=== PATIENT | male | born 1965 | race Hispanic/Latino ===

== ENCOUNTER 2016-12-13 05:12 | Emergency (ER) | payer BC ==
[2016-12-13 06:33] LABS: Blood Urea Nitrogen 24 mg/dL (9-20); Calcium 9.2 mg/dL (8.4-10.2); Carbon Dioxide 26 mmol/L (22-30); Chloride 91.6 mmol/L (98-107); Glucose 125 mg/dL (75-100); Sodium 131 mmol/L (137-145)
[2016-12-13 06:34] LABS: Anion Gap 18 mmol/L
[2016-12-13 06:41] LABS: Hematocrit 38.2 % (35.5-45.6); Hemoglobin 12.6 gm/dl (11.8-15.2); Mean Corpuscular HGB Conc 33 % (32-34); Mean Corpuscular Hemoglobin 29 pg (28-32); Mean Corpuscular Volume 89 fl (84-94); Platelet Count 363 K/mm3 (140-440); Red Blood Count 4.29 M/mm3 (3.65-5.03); Red Cell Distribution Width 14.5 % (13.2-15.2); White Blood Count 12.5 K/mm3 (4.5-11.0)
[2016-12-13 06:53] LABS: INR 0.85 (0.87-1.13)
[2016-12-13 06:54] LABS: Partial Thromboplastin Time 25.2 Sec. (24.2-36.6)
[2016-12-13 10:39] VITALS: BP 155/90
--- NOTE | 2016-12-13 11:40 | Emergency Department Report ---
HPI - General Chief Complaint: Tube Replacement Time Seen by Provider: 12/13/16 11:24 - HPI HPI: Chief complaint: Bleeding around his G-tube HPI: Patient with tongue cancer status post resection and currently on chemotherapy and radiation had a G-tube placed prophylactically which he is not using one week ago and noticed after cleaning it last night later in the evening it began bleeding. He is currently not actively bleeding. He has no abdominal pain or other symptoms. Patient is on Plavix and a baby aspirin. Mode of arrival: EMS Source: Patient Began: 2:00 last night Duration: Intermittent Context: See above Quality: Pain-free Severity: 0 out of 10 Improved with: Pressure Worsened with: Nothing Associated signs and symptoms: See above ED Past Medical Hx - Past Medical History Previous Medical History?: Yes Hx Hypertension: Yes Hx Heart Attack/AMI: Yes (3 cardiac stents) Hx Congestive Heart Failure: Yes Hx of Cancer: Yes (tongue cancer) Additional medical history: colitis, recent tongue cancer surgery, undergoing chemotherapy and radiation,. high cholesterol, Feeding tube placed as a precaution for if he is unable to eat - Surgical History Past Surgical History?: Yes Hx Coronary Stent: Yes Additional Surgical History: cranioplasty, tongur cancer surgery - Social History Smoking Status: Never Smoker - Medications Home Medications: Home Medications Medication Instructions Recorded Confirmed Last Taken Type Diphenhydramine HCl [Sleep-Aid] 25 mg PO HS PRN 02/27/15 02/27/15 Unknown History Mesalamine [Asacol Hd] 800 mg PO TID 02/27/15 02/27/15 Unknown History Aspirin EC [Aspirin Enteric Coated 81 mg PO QDAY #30 tablet. 03/02/15 Unknown Rx TAB] Atorvastatin [Lipitor] 40 mg PO QHS #30 tablet 03/02/15 Unknown Rx Clopidogrel [Plavix] 75 mg PO QDAY #30 tablet 03/02/15 Unknown Rx Lisinopril/Hydrochlorothiazide 1 tab PO QDAY #30 tablet 03/02/15 Unknown Rx [Zestoretic 20-12.5 mg] Metoprolol [Lopressor TAB] 12.5 mg PO BID #30 tablet 03/02/15 Unknown Rx ED Review of Systems ROS: Stated complaint: BLEEDING FROM FEEDING TUBE Other details as noted in HPI ROS Constitutional: No fever ENT: No uri symptoms Cardiovascular: No chest pain Respiratory: No sob or cough GI: No nausea vomiting or diarrhea : No dysuria frequency or urgency, Skin: No rash Neuro: No focal weakness or numbness Psych: No depression Peewee/lymph: No edema Physical Exam - Physical Exam Vital Signs: Vital Signs 12/13/16 12/13/16 12/13/16 05:28 10:38 10:40 Temperature 98.1 F 97.7 F Pulse Rate 68 59 L Respiratory 18 14 14 Rate Blood Pressure 158/96 Blood Pressure 155/90 [Right] O2 Sat by Pulse 97 97 97 Oximetry Physical Exam: GENERAL: The patient is well-developed well-nourished. HEENT: Normocephalic. Atraumatic. Extraocular motions are intact. Patient has moist mucous membranes. CHEST/LUNGS: There is no respiratory distress noted. ABDOMEN: Abdomen is soft, nontender. Patient has normal bowel sounds. There is no abdominal distention. G-tube has fresh clots around the area but when these were removed there is no recurrent bleeding. SKIN: There is no rash. There is no edema. There is no diaphoresis. NEURO: The patient is awake, alert, and oriented. The patient is cooperative. . The patient has dysarthria secondary to tongue surgery. MUSCULOSKELETAL: There is no tenderness or deformity. There is no evidence of acute injury. ED Course Vital Signs 12/13/16 12/13/16 12/13/16 05:28 10:38 10:40 Temperature 98.1 F 97.7 F Pulse Rate 68 59 L Respiratory 18 14 14 Rate Blood Pressure 158/96 Blood Pressure 155/90 [Right] O2 Sat by Pulse 97 97 97 Oximetry ED Medical Decision Making - Lab Data Result diagrams: 12/13/16 06:05 12/13/16 06:05 Critical care attestation.: If time is entered above; I have spent that time in minutes in the direct care of this critically ill patient, excluding procedure time. ED Disposition Clinical Impression: Post-op bleeding Qualifiers: Surgical complication system/body Area: digestive system Procedure type: digestive system Qualified Code(s): K91.840 - Postprocedural hemorrhage of a digestive system organ or structure following a digestive system procedure Disposition: DISCHARGED TO HOME OR SELFCARE Is pt being admited?: No Does the pt Need Aspirin: No Condition: Stable Instructions: Postoperative Bleeding (ED) Referrals: follow-up, your douper tomorrow [Other] - 24 Hours Time of Disposition: 11:43
== END 2016-12-13 11:45 | disposition home or self-care (01) ==
LOC: ED 05:12
DX: K91.840 Postprocedural hemorrhage of a digestive system organ or structure following a digestive system procedure (principal); I10 Essential (primary) hypertension; I25.2 Old myocardial infarction; I50.9 Heart failure, unspecified; E78.00 Pure hypercholesterolemia, unspecified; Z85.810 Personal history of malignant neoplasm of tongue; Z98.890 Other specified postprocedural states; Z79.82 Long term (current) use of aspirin
CPT/HCPCS: 36415; 80048; 85027; 85610; 85730; 99283

== ENCOUNTER 2019-02-13 18:21 | Inpatient (IN) | payer BC ==
[2019-02-13] MEDS ORDERED: NACL 0.9% 1000 ML 1,000 ML IV ONE ×2 (18:33)
--- NOTE | 2019-02-13 18:42 | Emergency Department Report ---
HPI - General Time Seen by Provider: 02/13/19 18:32 - HPI HPI: Room 22 The patient is a 53-year-old male presenting with chief complaint of altered mental status. Per EMS the patient is in an extended stay hotel and management had to force their way in. The patient was found in the bathroom on the floor surrounded by feces and vomitus. EMS states it appears as though the patient had been there for a long time. The patient is a poor historian and denies complaints. Patient admits to history of esophageal cancer treated with surgery. Location: [See above] Duration: [See above] Quality: [See above] Severity: [See above] Modifying factors: [see above] Context: [see above] Mode of transportation: [not driving] ED Past Medical Hx - Past Medical History Hx Hypertension: Yes Hx Heart Attack/AMI: Yes (3 cardiac stents) Hx Congestive Heart Failure: Yes Additional medical history: colitis, recent tongue cancer surgery, undergoing chemotherapy and radiation,. high cholesterol, Feeding tube placed as a precaution for if he is unable to eat - Surgical History Hx Coronary Stent: Yes Additional Surgical History: cranioplasty, tongur cancer surgery - Family History Family history: no significant - Social History Smoking Status: Never Smoker Substance Use Type: None - Medications Home Medications: Home Medications Medication Instructions Recorded Confirmed Last Taken Type Diphenhydramine HCl [Sleep-Aid] 25 mg PO HS PRN 02/27/15 02/27/15 Unknown History Mesalamine [Asacol Hd] 800 mg PO TID 02/27/15 02/27/15 Unknown History Aspirin EC [Aspirin Enteric Coated 81 mg PO QDAY #30 tablet. 03/02/15 Unknown Rx TAB] Atorvastatin [Lipitor] 40 mg PO QHS #30 tablet 03/02/15 Unknown Rx Clopidogrel [Plavix] 75 mg PO QDAY #30 tablet 03/02/15 Unknown Rx Lisinopril/Hydrochlorothiazide 1 tab PO QDAY #30 tablet 03/02/15 Unknown Rx [Zestoretic 20-12.5 mg] Metoprolol [Lopressor TAB] 12.5 mg PO BID #30 tablet 03/02/15 Unknown Rx ED Review of Systems ROS: Stated complaint: HYPERGLYCEMIA Other details as noted in HPI Comment: Unobtainable due to pts medical conditions Physical Exam - Physical Exam Physical Exam: GENERAL: The patient is a thin disheveled male lying on stretcher not appear to be in acute distress HEENT: Normocephalic. Atraumatic. Extraocular motions are intact. Patient has moist mucous membranes. NECK: Supple. Trachea midline CHEST/LUNGS: Clear to auscultation. There is no respiratory distress noted. HEART/CARDIOVASCULAR: Regular. There is no tachycardia. There is no gallop rub or murmur. ABDOMEN: Abdomen is soft, nontender. Patient has normal bowel sounds. There is no abdominal distention. SKIN: There is no rash. There is no edema. There is no diaphoresis. NEURO: The patient is awake but slow to respond. The patient is cooperative. The patient has no focal neurologic deficits. The patient has normal speech MUSCULOSKELETAL: There is no evidence of acute injury. - Central Line Placement Right IJ Consent Obtained: verbal consent Patient Placed on Monitor/Pulse Ox: Yes MD Prep: mask, gown, gloves Central Line Prep: Chlorhexidine scrub Local Anesthesia Used: Lidocaine 1% Amount of Anesthesia Used (mls): 3 Ultrasound Used for Placement: Yes Central Line Lumen Inserted: triple Bloods Obtained for Lab: No Central Line Position: good blood return Patient Tolerated Procedure: other (patient would not stay still) Complications: arterial puncture/cannula (arterial puncture on first attempt. No cannula. Needle removed and pressure held. Hemostatic) Additional Comments: Her second and third attempt at right IJ CVL there was good dark red blood penis return however the patient continued to move making it impossible to pass the guidewire. After second attempt right IJ site was abandoned and right femoral line placed. Right Femoral Consent Obtained: verbal consent Time Out Performed: No Patient Placed on Monitor/Pulse Ox: Yes MD Prep: mask, gown, gloves Central Line Prep: Chlorhexidine scrub Local Anesthesia Used: Lidocaine 1% Amount of Anesthesia Used (mls): 3 Ultrasound Used for Placement: No Central Line Lumen Inserted: triple Bloods Obtained for Lab: No Central Line Position: good blood return, all ports aspirated, flus Dressing Applied: Tegaderm Patient Tolerated Procedure: no complications Complications: none ED Medical Decision Making - Lab Data Result diagrams: 02/13/19 19:13 02/13/19 20:15 Laboratory Tests 02/13/19 02/13/19 02/13/19 18:35 19:13 19:13 WBC 24.4 H RBC 3.47 L Hgb 8.1 L Hct 28.4 L MCV 82 L MCH 23 L MCHC 29 L RDW 21.1 H Plt Count 419 Add Manual Diff Complete Total Counted 100 Seg Neutrophils % Insurance Claims Clerk Seg Neuts % (Manual) 85.0 H Band Neutrophils % 7.0 Lymphocytes % (Manual) 1.0 L Reactive Lymphs % (Man) 0 Monocytes % (Manual) 7.0 Eosinophils % (Manual) 0 Basophils % (Manual) 0 Metamyelocytes % 0 Myelocytes % 0 Promyelocytes % 0 Blast Cells % 0 Nucleated RBC % Not Reportable Seg Neutrophils # Man 20.7 H Band Neutrophils # 1.7 Lymphocytes # (Manual) 0.2 L Abs React Lymphs (Man) 0.0 Monocytes # (Manual) 1.7 H Eosinophils # (Manual) 0.0 Basophils # (Manual) 0.0 Metamyelocytes # 0.0 Myelocytes # 0.0 Promyelocytes # 0.0 Blast Cells # 0.0 WBC Morphology Not Reportable Hypersegmented Neuts Not Reportable Hyposegmented Neuts Not Reportable Hypogranular Neuts Not Reportable Smudge Cells Not Reportable Toxic Granulation Not Reportable Toxic Vacuolation Not Reportable Dohle Bodies Not Reportable Pelger-Huet Anomaly Not Reportable Kendrick Rods Not Reportable Platelet Estimate Consistent w auto Clumped Platelets Not Reportable Plt Clumps, EDTA Not Reportable Large Platelets Not Reportable Giant Platelets Not Reportable Platelet Satelliting Not Reportable Plt Morphology Comment Not Reportable RBC Morphology Not Reportable Dimorphic RBCs Not Reportable Polychromasia Not Reportable Hypochromasia 1+ Poikilocytosis 3+ Anisocytosis 2+ Microcytosis Not Reportable Macrocytosis Not Reportable Spherocytes Not Reportable Pappenheimer Bodies Not Reportable Sickle Cells Not Reportable Target Cells Not Reportable Tear Drop Cells Not Reportable Ovalocytes 2+ Helmet Cells Not Reportable [place] Bodies Not Reportable Derwood Rings Not Reportable [place] Cells 3+ Bite Cells Not Reportable Crenated Cell Not Reportable Elliptocytes Not Reportable Acanthocytes (Spur) Not Reportable Rouleaux Not Reportable Hemoglobin C Crystals Not Reportable Schistocytes Few Malaria parasites Not Reportable Ulices Bodies Not Reportable Hem Pathologist Commnt No PT 18.4 H INR 1.43 H APTT 44.5 H VBG pH Sodium Potassium Chloride Carbon Dioxide Anion Gap BUN Creatinine Estimated GFR BUN/Creatinine Ratio Glucose POC Glucose > 500 H Calcium Phosphorus Magnesium Total Bilirubin AST ALT Alkaline Phosphatase Total Creatine Kinase CK-MB (CK-2) CK-MB (CK-2) Rel Index Troponin T Total Protein Albumin Albumin/Globulin Ratio Triglycerides Cholesterol LDL Cholesterol Direct HDL Cholesterol Cholesterol/HDL Ratio Lipase 02/13/19 02/13/19 02/13/19 19:13 19:13 20:15 WBC RBC Hgb Hct MCV MCH MCHC RDW Plt Count Add Manual Diff Total Counted Seg Neutrophils % Seg Neuts % (Manual) Band Neutrophils % Lymphocytes % (Manual) Reactive Lymphs % (Man) Monocytes % (Manual) Eosinophils % (Manual) Basophils % (Manual) Metamyelocytes % Myelocytes % Promyelocytes % Blast Cells % Nucleated RBC % Seg Neutrophils # Man Band Neutrophils # Lymphocytes # (Manual) Abs React Lymphs (Man) Monocytes # (Manual) Eosinophils # (Manual) Basophils # (Manual) Metamyelocytes # Myelocytes # Promyelocytes # Blast Cells # WBC Morphology Hypersegmented Neuts Hyposegmented Neuts Hypogranular Neuts Smudge Cells Toxic Granulation Toxic Vacuolation Dohle Bodies Pelger-Huet Anomaly Kendrick Rods Platelet Estimate Clumped Platelets Plt Clumps, EDTA Large Platelets Giant Platelets Platelet Satelliting Plt Morphology Comment RBC Morphology Dimorphic RBCs Polychromasia Hypochromasia Poikilocytosis Anisocytosis Microcytosis Macrocytosis Spherocytes Pappenheimer Bodies Sickle Cells Target Cells Tear Drop Cells Ovalocytes Helmet Cells [place] Bodies [place] Rings Geremias Cells Bite Cells Crenated Cell Elliptocytes Acanthocytes (Spur) Rouleaux Hemoglobin C Crystals Schistocytes Malaria parasites Ulices Bodies Hem Pathologist Commnt PT INR APTT VBG pH 7.138 L* Sodium 136 L Potassium 5.5 H Chloride 97.6 L Carbon Dioxide 8 L* Anion Gap 36 BUN 53 H Creatinine 1.8 H Estimated GFR 40 BUN/Creatinine Ratio 29 Glucose 711 H* POC Glucose Calcium 7.9 L Phosphorus 6.70 H Magnesium 2.70 H Total Bilirubin 0.20 AST 66 H ALT 28 Alkaline Phosphatase 93 Total Creatine Kinase 3083 H CK-MB (CK-2) 47.7 H CK-MB (CK-2) Rel Index 1.5 Troponin T 0.698 H* Total Protein 5.8 L Albumin 2.5 L Albumin/Globulin Ratio 0.8 Triglycerides 96 Cholesterol 138 LDL Cholesterol Direct 94 HDL Cholesterol 40 Cholesterol/HDL Ratio 3.45 Lipase 17 02/13/19 20:15 WBC RBC Hgb Hct MCV MCH MCHC RDW Plt Count Add Manual Diff Total Counted Seg Neutrophils % Seg Neuts % (Manual) Band Neutrophils % Lymphocytes % (Manual) Reactive Lymphs % (Man) Monocytes % (Manual) Eosinophils % (Manual) Basophils % (Manual) Metamyelocytes % Myelocytes % Promyelocytes % Blast Cells % Nucleated RBC % Seg Neutrophils # Man Band Neutrophils # Lymphocytes # (Manual) Abs React Lymphs (Man) Monocytes # (Manual) Eosinophils # (Manual) Basophils # (Manual) Metamyelocytes # Myelocytes # Promyelocytes # Blast Cells # WBC Morphology Hypersegmented Neuts Hyposegmented Neuts Hypogranular Neuts Smudge Cells Toxic Granulation Toxic Vacuolation Dohle Bodies Pelger-Huet Anomaly Kendrick Rods Platelet Estimate Clumped Platelets Plt Clumps, EDTA Large Platelets Giant Platelets Platelet Satelliting Plt Morphology Comment RBC Morphology Dimorphic RBCs Polychromasia Hypochromasia Poikilocytosis Anisocytosis Microcytosis Macrocytosis Spherocytes Pappenheimer Bodies Sickle Cells Target Cells Tear Drop Cells Ovalocytes Helmet Cells [place] Bodies Derwood Rings Geremias Cells Bite Cells Crenated Cell Elliptocytes Acanthocytes (Spur) Rouleaux Hemoglobin C Crystals Schistocytes Malaria parasites Ulices Bodies Hem Pathologist Commnt PT INR APTT VBG pH Sodium 132 L Potassium 5.3 H Chloride 100.8 Carbon Dioxide 6 L* Anion Gap 31 BUN 55 H Creatinine 1.8 H Estimated GFR 40 BUN/Creatinine Ratio 31 Glucose 700 H* POC Glucose Calcium 8.0 L Phosphorus Magnesium Total Bilirubin AST ALT Alkaline Phosphatase Total Creatine Kinase CK-MB (CK-2) CK-MB (CK-2) Rel Index Troponin T Total Protein Albumin Albumin/Globulin Ratio Triglycerides Cholesterol LDL Cholesterol Direct HDL Cholesterol Cholesterol/HDL Ratio Lipase - EKG Data -: EKG Interpreted by Me EKG shows normal: sinus rhythm Rate: normal - EKG Data When compared to previous EKG there are: previous EKG unavailable Interpretation: nonspecific ST-T wave david (T-wave inversions in leads 2, 3, aVF, V3, V4, V5 and V6) - Radiology Data Radiology results: report reviewed (CT head, chest x-ray), image reviewed (chest x-ray, CT head) interpreted by me: Chest x-ray-right lower lobe consolidation [address] [address] Cat Scan Report Signed Patient: ESME MORROW MR#: [id number] 86 : 1965 Acct:[id number] Age/Sex: 53 / M ADM Date: 02/13/19 Loc: CC1 HOLDCCU1-[address]: CAMELIA MAZARIEGOS MD Ordering Physician: APRIL ALLEN MD Date of Service: 02/13/19 Procedure(s): CT head/brain wo con Accession Number(s): [id number] cc: APRIL ALLEN MD PROCEDURE: CT HEAD/BRAIN WO CON TECHNIQUE: Axial helical imaging from the skull base to the vertex. HISTORY: altered mental status COMPARISONS: None FINDINGS: There is a previous right frontal, temporal, parietal craniotomy with encephalomalacia in the right frontal and temporal lobes deep to the craniotomy site. There is no evidence of an acute intracranial process, intracranial hemorrhage or mass effect. Ventricular size is concordant with the degree of atrophy. The visualized portions of the orbits, paranasal and mastoid sinuses are notable for deformity in the medial wall and roof of the right orbit adjacent to the inferior right frontal lobe encephalomalacia. IMPRESSION: 1. No evidence of an acute intracranial process, intracranial hemorrhage or mass effect. 2. Previous right frontal temporal parietal craniotomy with encephalomalacia in the underlying right frontal and temporal lobes. 3. Appearance of deformity in the medial wall and roof the right orbit. This may represent chronic posttraumatic or postsurgical change. This document is electronically signed by Mehnaz Maravilla MD., February 13 2019 11:11:52 PM ET Transcribed By: ED Dictated By: MEHNAZ MARAVILLA MD Electronically Authenticated By: MEHNAZ MARAVILLA MD Signed Date/Time: 02/13/192313 DD/ 03 TD/TT: 02/13/192304 [address] [address] XRay Report Signed Patient: ESME MORROW MR#: [id number] [birth year] : 1965 Acct:[id number] Age/Sex: 53 / M ADM Date: 02/13/19 Loc: CC1 HOLDCCU1-[address]: CAMELIA MAZARIEGOS MD Ordering Physician: CAMELIA MAZARIEGOS MD Date of Service: 02/13/19 Procedure(s): XR chest 1V ap Accession Number(s): [id number] cc: CAMELIA MAZARIEGOS MD Fluoro Time In Minutes: PROCEDURES: XR CHEST 1V AP TECHNIQUE: AP portable view of the chest. HISTORY: LEUCOCYTOSIS COMPARISON: None FINDINGS: Lines, tubes, and devices: N/A Lungs and pleura: Trachea is normal in position. There is an alveolar infiltrate in the right lung base, likely in the right middle lobe and right lower lobe. There is also probably a small right pleural effusion. There is also likely mild infiltrate in the left midlung zone as well as Cardiomediastinal silhouette: Cardiac and mediastinal silhouettes are unremarkable. Other: Bony structures are intact. IMPRESSION: Consolidation in the right lung base and mild infiltrate in the left midlung zone. Findings are consistent with pneumonia This document is electronically signed by Umm Quevedo MD., February 13 2019 10:57:28 PM ET Transcribed By: [facility] Dictated By: UMM QUEVEDO MD Electronically Authenticated By: UMM QUEVEDO MD Signed Date/Time: 02/13/192258 DD/ 05 TD/TT: 02/13/192248 - Differential Diagnosis altered mental status, rhabdomyolysis, DKA Critical Care Time: Yes Critical care time in (mins) excluding proc time.: 30 Critical care attestation.: If time is entered above; I have spent that time in minutes in the direct care of this critically ill patient, excluding procedure time. ED Disposition Clinical Impression: Hypothermia, DKA (diabetic ketoacidoses), Leukocytosis, Hyperphosphatemia, Rhabdomyolysis, Pneumonia Disposition: OP ADMIT IP TO THIS HOSP Is pt being admited?: Yes Condition: Serious Time of Disposition: 21:18 (hospitalist paged (Dr Mazariegos))
[2019-02-13 19:36] LABS: Mean Corpuscular HGB Conc 29 % (32-34); Mean Corpuscular Volume 82 fl (84-94); Platelet Count 419 K/mm3 (140-440); Red Blood Count 3.47 M/mm3 (3.65-5.03)
[2019-02-13 19:38] LABS: Hematocrit 28.4 % (35.5-45.6); Hemoglobin 8.1 gm/dl (11.8-15.2); Red Cell Distribution Width 21.1 % (13.2-15.2)
[2019-02-13 19:43] LABS: INR 1.43 (0.87-1.13)
[2019-02-13 19:44] LABS: Partial Thromboplastin Time 44.5 Sec. (24.2-36.6)
[2019-02-13 19:47] LABS: Creatine Kinase MB 47.7 ng/mL (0.0-4.0)
[2019-02-13 19:48] LABS: Albumin 2.5 g/dL (3.9-5); Calcium 7.9 mg/dL (8.4-10.2)
[2019-02-13] MEDS ORDERED: D50W (25GM) Syringe IV PRN ×2 (19:51→22:03)
[2019-02-13] MEDS ORDERED: HumuLIN R 100 UNITS in NACL 0.9% 99 ML IV SCH ×2 (20:00→23:00)
[2019-02-13 20:17] LABS: Chol/HDL Ratio 3.45 %
[2019-02-13 20:22] LABS: Band Neutrophils # (Manual) 1.7 K/mm3; Basophils % (Manual) 0 % (0.0-1.8); Eosinophils % (Manual) 0 % (0.0-4.3); Total Cells Counted 100
[2019-02-13 20:24] LABS: Anisocytosis 2+; Burr Cells 3+; Ovalocytes 2+; Poikilocytosis 3+
[2019-02-13 20:25] LABS: Hypochromasia 1+; Platelet Estimate Consistent w Auto; Schistocytes Few
[2019-02-13] MEDS: LEVOPHED DRIP 4 MG/NS 250 ML 4 MG/250 ML BAG IV ONE (21:11)
[2019-02-13] MEDS ORDERED: ZOFRAN IV PRN (22:07)
[2019-02-13] MEDS ORDERED: TYLENOL PO PRN (22:08)
[2019-02-13] MEDS: HEPARIN SUB-Q SCH (22:16)
--- NOTE | 2019-02-13 22:59 | XRay Report ---
PROCEDURES: XR CHEST 1V AP TECHNIQUE: AP portable view of the chest. HISTORY: LEUCOCYTOSIS COMPARISON: None FINDINGS: Lines, tubes, and devices: N/A Lungs and pleura: Trachea is normal in position. There is an alveolar infiltrate in the right lung ba se, likely in the right middle lobe and right lower lobe. There is also probably a small right pleura l effusion. There is also likely mild infiltrate in the left midlung zone as well as Cardiomediastinal silhouette: Cardiac and mediastinal silhouettes are unremarkable. Other: Bony structures are intact. IMPRESSION: Consolidation in the right lung base and mild infiltrate in the left midlung zone. Findings are consi stent with pneumonia This document is electronically signed by Umm Quevedo MD., February 13 2019 10:57:28 PM ET
[2019-02-13] MEDS ORDERED: NACL 0.9% 1000 ML 1,000 ML IV SCH (23:00)
--- NOTE | 2019-02-13 23:14 | Cat Scan Report ---
PROCEDURE: CT HEAD/BRAIN WO CON TECHNIQUE: Axial helical imaging from the skull base to the vertex. HISTORY: altered mental status COMPARISONS: None FINDINGS: There is a previous right frontal, temporal, parietal craniotomy with encephalomalacia in the right f rontal and temporal lobes deep to the craniotomy site. There is no evidence of an acute intracranial process, intracranial hemorrhage or mass effect. Ventricular size is concordant with the degree of atrophy. The visualized portions of the orbits, paranasal and mastoid sinuses are notable for deformity in the medial wall and roof of the right orbit adjacent to the inferior right frontal lobe encephalomalacia . IMPRESSION: 1. No evidence of an acute intracranial process, intracranial hemorrhage or mass effect. 2. Previous right frontal temporal parietal craniotomy with encephalomalacia in the underlying right frontal and temporal lobes. 3. Appearance of deformity in the medial wall and roof the right orbit. This may represent chronic po sttraumatic or postsurgical change. This document is electronically signed by Mehnaz Maravilla MD., February 13 2019 11:11:52 PM ET
[2019-02-13 23:33] LABS: Bilirubin,Urine NEG (Negative); Blood,Urine MOD (Negative); Color,Urine Yellow (Yellow); Protein,Urine <15 mg/dL mg/dL (Negative); Urobilinogen,Urine < 2.0 mg/dL (<2.0)
[2019-02-13] MEDS ORDERED: ZOSYN/NS 4.5GM/100ML 4.5 GM/100 ML VIAL IV ONE (23:51)
[2019-02-14] MEDS ORDERED: ZOSYN/NS 4.5GM/100ML 4.5 GM/100 ML VIAL IV ONE
[2019-02-14 01:00] LABS: Calcium 7.8 mg/dL (8.4-10.2)
[2019-02-14 01:30] LABS: Creatine Kinase MB 46.9 ng/mL (0.0-4.0)
[2019-02-14 01:31] LABS: Calcium 7.7 mg/dL (8.4-10.2)
[2019-02-14 02:41] LABS: Calcium 7.5 mg/dL (8.4-10.2)
[2019-02-14] MEDS: LEVOPHED DRIP 4 MG/NS 250 ML 4 MG/250 ML BAG IV ONE ×2 (03:15→13:05)
[2019-02-14] MEDS ORDERED: D5W/0.45% NACL/KCL 20 MEQ 20 MEQ/1,000 ML BAG IV ONE (04:30)
[2019-02-14] MEDS ORDERED: D5W/0.45% NACL/KCL 20 MEQ 20 MEQ/1,000 ML BAG IV SCH (05:00)
[2019-02-14 05:04] LABS: Calcium 8.1 mg/dL (8.4-10.2)
[2019-02-14 06:30] LABS: Calcium 7.9 mg/dL (8.4-10.2)
[2019-02-14 06:32] LABS: Creatine Kinase MB 38.5 ng/mL (0.0-4.0)
--- NOTE | 2019-02-14 07:06 | History and Physical Report ---
CHIEF COMPLAINT: Change in mental status. HISTORY OF PRESENTING ILLNESS: The patient is a 53-year-old male who was found in a hotel bathroom floor, covered with vomitus and feces and EMS was called and they do not know how long the patient has been there on the floor. The patient is a poor historian and was unable to give any account of his symptoms or complaint and was brought in for further evaluation. PAST MEDICAL HISTORY: Pertinent for hypertension, coronary artery disease, status post myocardial infarction, congestive heart failure, colitis, recent tongue cancer with surgery and the patient undergoing chemotherapy and radiation. Also, the patient has past history of hypercholesterolemia. PAST SURGICAL HISTORY: Pertinent for tongue surgery for cancer, cranioplasty and chest tube placement in case the patient is unable to feed. FAMILY HISTORY: Family history is noncontributory. SOCIAL HISTORY: The patient does not smoke, does not drink alcohol, and does not use illicit drugs. MEDICATIONS: The patient is on diphenhydramine hydrochloride as a sleeping aid and the patient is also on Asacol 800 mg by mouth 3 times daily, aspirin coated 81 mg by mouth daily, Lipitor 40 mg by mouth at bedtime, Plavix 75 mg by mouth daily, Zestoretic 20/25 mg one by mouth daily, metoprolol or Lopressor 12.5 mg by mouth twice daily. ALLERGIES: THE PATIENT IS ALLERGIC TO BUTORPHANOL TARTRATE, CODEINE, DIAZEPAM, IODINE, PHENOBARBITAL. REVIEW OF SYSTEMS: CONSTITUTIONAL: There is no fever, no chills, no diaphoresis. HEENT: There is no headache or sore throat. CARDIOVASCULAR SYSTEM: There is no chest pain or orthopnea. RESPIRATORY SYSTEM: There is no shortness of breath or cough. GASTROINTESTINAL SYSTEM: Nausea and vomiting present. Diarrhea present. No abdominal pain. NEUROLOGICAL SYSTEM: Change in mental status noted. MUSCULOSKELETAL SYSTEM: There is no joint pain or swelling. DERMATOLOGICAL SYSTEM: There is no skin rash or itching. GENITOURINARY SYSTEM: There is no dysuria, hematuria or flank pain. Rest of system review is normal. PHYSICAL EXAMINATION: GENERAL: At the time of exam, the patient was found to be alert, oriented to person only, noncommunicative and not in acute distress. VITAL SIGNS: The patient's vital signs shows normal temperature with pulse of 91, respiration 17, blood pressure 106/60, O2 sat of 100% on oxygen. HEENT: Shows pupils to be equal, round, reactive to light and accommodating. Extraocular muscles are intact. NECK: Neck is supple with no JVD or carotid bruit. CARDIOVASCULAR SYSTEM: Showed normal first and second heart sounds with no gallops or murmurs. RESPIRATORY SYSTEM: Show good air entry on both sides of the lungs with no abnormal breath sounds. GASTROINTESTINAL SYSTEM: Show abdomen to be full, soft, nontender with no organomegaly or rigidity. NEUROLOGIC: Neuro exam shows no focal deficit. MUSCULOSKELETAL SYSTEM: Show no joint swelling or tenderness. DERMATOLOGICAL SYSTEM: Show no skin rash. GENITOURINARY SYSTEM: Showing no costovertebral angle tenderness. PERTINENT LABORATORY AND IMAGING STUDIES: The patient had CT of the head with no contrast done that shows no evidence of acute intracranial process. There is finding of previous right swxwuqw-szaxxzmn-ectigant craniotomy with encephalomalacia in the underlying right frontal and temporal lobes. Appearance of deformity in the medial wall and roof of the right orbit is found, this may represent chronic posttraumatic or postsurgical change. Also, the patient had chest x-ray done that shows consolidation in the right lung with mild infiltrate in the left mid lung and the radiologist say the findings are consistent with pneumonia. Lab results; the patient's CBC shows elevated white count of 24,400 with low hemoglobin of 8.1 and low hematocrit of 28.4 with CBC differential showing segmented neutrophil count of 85%. The patient's coagulation studies show high PT of 18.4 with high INR of 1.43 with high PTT of 44.5 and the patient's chemistry show low sodium of 136, high potassium level of 5.5 and low chloride level of 97.6 with low CO2 of 8 and anion gap of 31. High blood glucose level of 711. The patient's BUN level is high with a value of 55 with high creatinine of 1.8 and elevated AST of 66 with normal ALT. The patient's total CPK was high with a value of 3083. The troponin level is high with a value of 0.69. The patient's urinalysis was remarkable. DIAGNOSES: 1. Diabetic ketoacidosis. 2. Rhabdomyolysis. 3. Bilateral pneumonia. 4. Hypothermia or low temperature. 5. Elevated troponin. 6.CHASE PLAN: 1. The patient will be admitted to the ICU. 2. The patient will be placed on DKA pathway using IV regular insulin drip. 3. The patient will have Cardiology consult with Dr. Ravi this morning. 4. The patient will have critical care consult with Dr. Sharp because of ICU admission for IV insulin drip. 5. The patient will continue IV norepinephrine drip for low blood pressure. 6. The patient will be on IV Zosyn 3.375 g q. 8 hours for treatment of pneumonia. 7. The patient will be on Tylenol 650mg rectally as needed for fever and headache. 8. The patient will be on IV normal saline at 200 mL an hour. 9. The patient will have Nephrology consult with Dr. Wang for acute kidney injury. JOB# [id number] [facility]/MARGARET MTDAlok
[2019-02-14] MEDS: ZOSYN/NS 3.375GM/50ML 3.375 GM/50 ML BAG IV SCH ×3 (07:25→21:36)
[2019-02-14] MEDS ORDERED: LEVOPHED DRIP 4 MG/NS 250 ML 4 MG/250 ML BAG IV ONE ×3 (07:54→19:18)
--- NOTE | 2019-02-14 10:39 | Consultation ---
History of Present Illness - Reason for Consult Consult date: 02/14/19 acute renal failure, hyperkalemia Requesting physician: CAMELIA MAZARIEGOS - History of Present Illness This is a 53 yo M with past medical history of hypertension, CAD, CHD, tongue/esophageal cancer s/p surgery/chemotherapy/radiation, who was BIBEMS, after he was found on the bathroom floor at a extended stay hotel surrounded by feces and vomitus. patient is a poor historian and denies acute complaints. in er pt was found to be hypotensive, requiring vasopressor support. CXR showed b/l pneumoni, CT head showed no acute findings, labs showed elevated serum glucose > 700s, along with significant acidosis with serum bicarb 8, VBG showed pH of 7.138. Pt was admitted for treatment of acute DKA. BUN/Cr was also elevated at 53/1.8mg/dl with hyperkalemia with K >5.5, for which renal consult is requested. Pt is poor historian and could not provide any detailed history. Past History Past Medical History: CAD, diabetes, heart failure, hypertension, other (tongue cancer) Past Surgical History: Other (tongue surgery for cancer, cranioplasty, h/o chest tube placement ) Social history: denies: smoking, alcohol abuse, prescription drug abuse, IV drug use Family history: no significant family history Medications and Allergies Allergies Allergy/AdvReac Type Severity Reaction Status Date / Time butorphanol tartrate AdvReac Unknown Verified 02/26/15 22:03 [From Stadol] codeine AdvReac Unknown Verified 02/26/15 22:03 diazepam [From Valium] AdvReac Unknown Verified 02/26/15 22:03 iodine AdvReac Unknown Unverified 07/28/16 10:21 phenobarbital AdvReac Unknown Verified 02/26/15 22:02 phenytoin sodium AdvReac Unknown Verified 02/26/15 22:02 [From Dilantin] phenytoin sodium extended AdvReac Unknown Verified 02/26/15 22:02 [From Dilantin] prednisone AdvReac Unknown Verified 02/26/15 22:04 sulfasalazine AdvReac Unknown Unverified 07/28/16 10:21 [From Azulfidine] Home Medications Medication Instructions Recorded Confirmed Last Taken Type Diphenhydramine HCl [Sleep-Aid] 25 mg PO HS PRN 02/27/15 02/27/15 Unknown History Mesalamine [Asacol Hd] 800 mg PO TID 02/27/15 02/27/15 Unknown History Aspirin EC [Aspirin Enteric Coated 81 mg PO QDAY #30 tablet.dr 03/02/15 Unknown Rx TAB] Atorvastatin [Lipitor] 40 mg PO QHS #30 tablet 03/02/15 Unknown Rx Clopidogrel [Plavix] 75 mg PO QDAY #30 tablet 03/02/15 Unknown Rx Lisinopril/Hydrochlorothiazide 1 tab PO QDAY #30 tablet 03/02/15 Unknown Rx [Zestoretic 20-12.5 mg] Metoprolol [Lopressor TAB] 12.5 mg PO BID #30 tablet 03/02/15 Unknown Rx Active Meds: Active Medications Acetaminophen (Tylenol) 650 mg PO Q4H PRN PRN Reason: Fever >101 Dextrose (D50w (25gm) Syringe) 0 ml IV PRN PRN PRN Reason: Hypoglycemia Heparin Sodium (Porcine) (Heparin) 5,000 unit SUB-Q Q12HR THANIA Last Admin: 02/13/19 22:16 Dose: 5,000 unit Documented by: Norepinephrine (Levophed Drip 4 Mg/Ns 250 Ml) 4 mg in 250 mls @ 7.5 mls/hr IV TITR ONE; Protocol Stop: 02/15/19 05:33 Last Admin: 02/14/19 03:15 Dose: 10 mcg/min, 37.5 mls/hr Documented by: Sodium Chloride (Nacl 0.9% 1000 Ml) 1,000 mls @ 200 mls/hr IV DIRECT THANIA Insulin Human Regular 100 (units/ Sodium Chloride) 100 mls @ 1 mls/hr IV TITR THANIA; Protocol Last Titration: 02/14/19 09:33 Dose: 0 units/hr, 0 mls/hr Documented by: Potassium Chloride/Dextrose/Sod Cl (D5w/0.45% Nacl/Kcl 20 Meq) 20 meq in 1,000 mls @ 125 mls/hr IV DIRECT THANIA Last Admin: 02/14/19 04:47 Dose: 125 mls/hr Documented by: Piperacillin Sod/Tazobactam Sod (Zosyn/Ns 3.375gm/50ml) 3.375 gm in 50 mls @ 100 mls/hr IV Q8HR THANIA; Protocol Last Admin: 02/14/19 07:25 Dose: 100 mls/hr Documented by: Ondansetron HCl (Zofran) 4 mg IV Q8H PRN PRN Reason: Nausea And Vomiting Review of Systems ROS unobtainable: due to mental status Exam - Vital Signs Vital signs: Vital Signs Pulse Resp Pulse Ox 110 H 36 H 88 02/13/19 18:26 02/13/19 18:26 02/13/19 18:26 - General Appearance General appearance: appears stated age, chronically ill EENT: ATNC, PERRL, mucous membranes dry Neck: Present: neck supple Respiratory: Decreased Breath Sounds Heart: regular, S1S2 Gastrointestinal: Present: normoactive bowel sounds Integumentary: no rash, other (no edema ) Neurologic: no focal deficit, strength 5/5, CN 3-12 intact Psychiatric: mood/affect appropriate, cooperative Results - Lab Results 02/13/19 19:13 02/14/19 06:02 Most recent lab results Calcium 7.9 mg/dL (8.4-10.2) L 02/14/19 06:02 Phosphorus 4.20 mg/dL (2.5-4.5) D 02/13/19 23:01 Magnesium 2.50 mg/dL (1.7-2.3) H 02/13/19 23:01 Laboratory Tests 02/13/19 02/13/19 02/13/19 18:35 19:13 19:13 VBG pH 7.138 L* Glucose 711 H* POC Glucose > 500 H Calcium 7.9 L Phosphorus Total Bilirubin 0.20 AST 66 H ALT 28 Alkaline Phosphatase 93 Total Creatine Kinase 3083 H CK-MB (CK-2) 47.7 H CK-MB (CK-2) Rel Index 1.5 Troponin T 0.698 H* Total Protein 5.8 L Albumin 2.5 L Albumin/Globulin Ratio 0.8 Triglycerides 96 Cholesterol 138 LDL Cholesterol Direct 94 HDL Cholesterol 40 Cholesterol/HDL Ratio 3.45 Lipase 17 Urine Color Urine Turbidity Urine pH Ur Specific [place] Urine Protein Urine Glucose (UA) Urine Ketones Urine Blood Urine Nitrite Urine Bilirubin Urine Urobilinogen Ur Leukocyte Esterase Urine WBC (Auto) Urine RBC (Auto) 02/13/19 02/13/19 02/13/19 20:15 20:15 23:00 VBG pH Glucose 700 H* POC Glucose Calcium Phosphorus 6.70 H Total Bilirubin AST ALT Alkaline Phosphatase Total Creatine Kinase CK-MB (CK-2) CK-MB (CK-2) Rel Index Troponin T Total Protein Albumin Albumin/Globulin Ratio Triglycerides Cholesterol LDL Cholesterol Direct HDL Cholesterol Cholesterol/HDL Ratio Lipase Urine Color Yellow Urine Turbidity Clear Urine pH 5.0 Ur Specific [place] 1.024 Urine Protein <15 mg/dl Urine Glucose (UA) >=500 Urine Ketones 20 Urine Blood Mod Urine Nitrite Neg Urine Bilirubin Neg Urine Urobilinogen < 2.0 Ur Leukocyte Esterase Neg Urine WBC (Auto) 3.0 Urine RBC (Auto) 6.0 02/14/19 02/14/19 02/14/19 00:29 04:23 04:30 VBG pH Glucose 438 H 97 POC Glucose 110 H Calcium 7.7 L Phosphorus Total Bilirubin AST ALT Alkaline Phosphatase Total Creatine Kinase CK-MB (CK-2) CK-MB (CK-2) Rel Index Troponin T Total Protein Albumin Albumin/Globulin Ratio Triglycerides Cholesterol LDL Cholesterol Direct HDL Cholesterol Cholesterol/HDL Ratio Lipase Urine Color Urine Turbidity Urine pH Ur Specific [place] Urine Protein Urine Glucose (UA) Urine Ketones Urine Blood Urine Nitrite Urine Bilirubin Urine Urobilinogen Ur Leukocyte Esterase Urine WBC (Auto) Urine RBC (Auto) Assessment and Plan - Patient Problems (1) Acute kidney failure with tubular necrosis Current Visit: Yes Status: Acute Plan to address problem: suspect CHASE due to ATN in the setting of DKA/septic shock and decreased renal perfusion. pt remains non-oliguric, BP stabilizing with IVF/on levophed. cont vasopressor support with levo to maintain MAP > 65mmhg. cont glucose control with IV insuline. avoid nephrotoxins, NSAIDs IV contrast. Will monitor lytes/renal parameters closely and make further recommendations. (2) DKA (diabetic ketoacidoses) Current Visit: Yes Status: Acute Plan to address problem: on insulilne gtt, AG closing. cont D5 1/2 NS + KCl at 125ml/hr (3) Pneumonia Current Visit: Yes Status: Acute Plan to address problem: cont ABX w/ zosyn, dose for current eGFR < 60mls/min (4) Septic shock Current Visit: Yes Status: Acute Plan to address problem: cont ABXs, vasopressor support. (5) Rhabdomyolysis Current Visit: Yes Status: Acute Plan to address problem: cont IVF, monitor serial CPK level.
[2019-02-14] MEDS ORDERED: HEPARIN ONE (11:43)
[2019-02-14] MEDS: HEPARIN SUB-Q SCH ×2 (11:45→21:36)
[2019-02-14] MEDS ORDERED: ZOSYN/NS 4.5GM/100ML 0 GM/0 ML VIAL IV ONE (12:42)
[2019-02-14] MEDS ORDERED: ASPIRIN ONE (12:42)
[2019-02-14] MEDS ORDERED: KCL IV ONE (12:42)
[2019-02-14] MEDS ORDERED: D5W IV ONE (12:42)
[2019-02-14] MEDS ORDERED: NACL IV ONE (12:42)
--- NOTE | 2019-02-14 12:42 | Event Note ---
Date: 02/14/19 Detailed cardiology consultation nadja. Elena VENTURA NP / DR. Arabella STEELE
[2019-02-14] MEDS ORDERED: NACL 0.9% 1000 ML 1,000 ML ONE ×4 (12:43→21:20)
--- NOTE | 2019-02-14 12:57 | Consultation ---
History of Present Illness Consult date: 02/14/19 Requesting physician: NOMAN PURI Reason for consult: other (Hypotensive, ELEVATED Blood sugar, acute renal failure, DKA) Past History Past Medical History: CAD, diabetes, heart failure, hypertension, other (tongue cancer) Past Surgical History: Other (tongue surgery for cancer, cranioplasty, h/o chest tube placement ) Social history: denies: smoking, alcohol abuse, prescription drug abuse, IV drug use Family history: no significant family history Medications and Allergies Allergies Allergy/AdvReac Type Severity Reaction Status Date / Time butorphanol tartrate AdvReac Unknown Verified 02/14/19 11:42 [From Stadol] codeine AdvReac Unknown Verified 02/14/19 11:42 diazepam [From Valium] AdvReac Unknown Verified 02/14/19 11:42 iodine AdvReac Unknown Verified 02/14/19 11:42 phenobarbital AdvReac Unknown Verified 02/14/19 11:42 phenytoin sodium AdvReac Unknown Verified 02/14/19 11:42 [From Dilantin] phenytoin sodium extended AdvReac Unknown Verified 02/14/19 11:42 [From Dilantin] prednisone AdvReac Unknown Verified 02/14/19 11:42 sulfasalazine AdvReac Unknown Verified 02/14/19 11:42 [From Azulfidine] Home Medications Medication Instructions Recorded Confirmed Last Taken Type Insulin Glargine,Hum.rec.anlog 44 unit SQ QHS 02/14/19 02/14/19 Unknown History [Lantus Solostar] Levothyroxine [Synthroid] 25 mcg PO QAM 02/14/19 02/14/19 Unknown History Prochlorperazine [Compazine] 10 mg PO Q6HR 02/14/19 02/14/19 Unknown History Active Meds: Active Medications Acetaminophen (Tylenol) 650 mg PO Q4H PRN PRN Reason: Fever >101 Aspirin (Aspirin) 325 mg PO QDAY THANIA Dextrose (D50w (25gm) Syringe) 0 ml IV PRN PRN PRN Reason: Hypoglycemia Heparin Sodium (Porcine) (Heparin) 5,000 unit SUB-Q Q12HR [facility] Last Admin: 02/14/19 11:45 Dose: 5,000 unit Documented by: Norepinephrine (Levophed Drip 4 Mg/Ns 250 Ml) 4 mg in 250 mls @ 7.5 mls/hr IV TITR ONE; Protocol Stop: 02/15/19 05:33 Last Titration: 02/14/19 11:30 Dose: Infused Documented by: Sodium Chloride (Nacl 0.9% 1000 Ml) 1,000 mls @ 200 mls/hr IV DIRECT THANIA Potassium Chloride/Dextrose/Sod Cl (D5w/0.45% Nacl/Kcl 20 Meq) 20 meq in 1,000 mls @ 125 mls/hr IV DIRECT THANIA Last Admin: 02/14/19 04:47 Dose: 125 mls/hr Documented by: Piperacillin Sod/Tazobactam Sod (Zosyn/Ns 3.375gm/50ml) 3.375 gm in 50 mls @ 100 mls/hr IV Q8HR THANIA; Protocol Last Admin: 02/14/19 07:25 Dose: 100 mls/hr Documented by: Sodium Chloride (Nacl 0.9% 1000 Ml) 1,000 mls @ 999 mls/hr IV BOLUS ONE Stop: 02/14/19 13:51 Sodium Chloride (Nacl 0.9% 1000 Ml) 2,000 mls @ 999 mls/hr IV ONCE ONE Stop: 02/14/19 14:51 Insulin Human Isoph/Insulin Regular (Humulin 70/30) 8 unit SUB-Q BIDDIAB THANIA Insulin Human Lispro (Humalog) 0 unit SUB-Q ACHS THANIA; Protocol Ondansetron HCl (Zofran) 4 mg IV Q8H PRN PRN Reason: Nausea And Vomiting Physical Examination Vital signs: Vital Signs Pulse Resp Pulse Ox 110 H 36 H 88 02/13/19 18:26 02/13/19 18:26 02/13/19 18:26 Results - Laboratory Findings CBC and BMP: 02/13/19 19:13 02/14/19 06:02 PT/INR, D-dimer PT 18.4 Sec. (12.2-14.9) H 02/13/19 19:13 INR 1.43 (0.87-1.13) H 02/13/19 19:13 Abnormal lab findings: Abnormal Labs 02/13/19 02/13/19 02/13/19 18:35 19:13 19:13 WBC 24.4 H RBC 3.47 L Hgb 8.1 L Hct 28.4 L MCV 82 L MCH 23 L MCHC 29 L RDW 21.1 H Seg Neuts % (Manual) 85.0 H Lymphocytes % (Manual) 1.0 L Seg Neutrophils # Man 20.7 H Lymphocytes # (Manual) 0.2 L Monocytes # (Manual) 1.7 H PT 18.4 H INR 1.43 H APTT 44.5 H VBG pH Sodium Potassium Chloride Carbon Dioxide BUN Creatinine Glucose POC Glucose > 500 H Calcium Phosphorus Magnesium AST Total Creatine Kinase CK-MB (CK-2) Troponin T Total Protein Albumin 02/13/19 02/13/19 02/13/19 19:13 19:13 20:15 WBC RBC Hgb Hct MCV MCH MCHC RDW Seg Neuts % (Manual) Lymphocytes % (Manual) Seg Neutrophils # Man Lymphocytes # (Manual) Monocytes # (Manual) PT INR APTT VBG pH 7.138 L* Sodium 136 L Potassium 5.5 H Chloride 97.6 L Carbon Dioxide 8 L* BUN 53 H Creatinine 1.8 H Glucose 711 H* POC Glucose Calcium 7.9 L Phosphorus 6.70 H Magnesium 2.70 H AST 66 H Total Creatine Kinase 3083 H CK-MB (CK-2) 47.7 H Troponin T 0.698 H* Total Protein 5.8 L Albumin 2.5 L 02/13/19 02/13/19 02/13/19 20:15 22:35 23:01 WBC RBC Hgb Hct MCV MCH MCHC RDW Seg Neuts % (Manual) Lymphocytes % (Manual) Seg Neutrophils # Man Lymphocytes # (Manual) Monocytes # (Manual) PT INR APTT VBG pH Sodium 132 L Potassium 5.3 H Chloride Carbon Dioxide 6 L* BUN 55 H Creatinine 1.8 H Glucose 700 H* POC Glucose 437 H Calcium 8.0 L Phosphorus Magnesium 2.50 H AST Total Creatine Kinase CK-MB (CK-2) Troponin T Total Protein Albumin 02/13/19 02/13/19 02/14/19 23:01 23:30 00:29 WBC RBC Hgb Hct MCV MCH MCHC RDW Seg Neuts % (Manual) Lymphocytes % (Manual) Seg Neutrophils # Man Lymphocytes # (Manual) Monocytes # (Manual) PT INR APTT VBG pH Sodium Potassium Chloride Carbon Dioxide 8 L* 13 L BUN 55 H 56 H Creatinine 1.9 H 1.8 H Glucose 549 H* 438 H POC Glucose > 500 H Calcium 7.8 L 7.7 L Phosphorus Magnesium AST Total Creatine Kinase 2404 H CK-MB (CK-2) 46.9 H Troponin T 0.789 H* Total Protein Albumin 02/14/19 02/14/19 02/14/19 00:33 01:37 02:05 WBC RBC Hgb Hct MCV MCH MCHC RDW Seg Neuts % (Manual) Lymphocytes % (Manual) Seg Neutrophils # Man Lymphocytes # (Manual) Monocytes # (Manual) PT INR APTT VBG pH Sodium Potassium Chloride 109.4 H Carbon Dioxide 12 L BUN 53 H Creatinine 1.7 H Glucose 283 H POC Glucose 426 H 467 H Calcium 7.5 L Phosphorus Magnesium AST Total Creatine Kinase CK-MB (CK-2) Troponin T Total Protein Albumin 02/14/19 02/14/19 02/14/19 02:31 03:46 04:23 WBC RBC Hgb Hct MCV MCH MCHC RDW Seg Neuts % (Manual) Lymphocytes % (Manual) Seg Neutrophils # Man Lymphocytes # (Manual) Monocytes # (Manual) PT INR APTT VBG pH Sodium Potassium Chloride 112.8 H Carbon Dioxide 19 L D BUN 55 H Creatinine 1.7 H Glucose POC Glucose 396 H 238 H Calcium 8.1 L Phosphorus Magnesium AST Total Creatine Kinase CK-MB (CK-2) Troponin T Total Protein Albumin 02/14/19 02/14/19 02/14/19 04:30 05:33 06:02 WBC RBC Hgb Hct MCV MCH MCHC RDW Seg Neuts % (Manual) Lymphocytes % (Manual) Seg Neutrophils # Man Lymphocytes # (Manual) Monocytes # (Manual) PT INR APTT VBG pH Sodium Potassium Chloride Carbon Dioxide BUN Creatinine Glucose POC Glucose 110 H 150 H Calcium Phosphorus Magnesium AST Total Creatine Kinase 2204 H CK-MB (CK-2) 38.5 H Troponin T 0.684 H* Total Protein Albumin 02/14/19 02/14/19 06:02 06:38 WBC RBC Hgb Hct MCV MCH MCHC RDW Seg Neuts % (Manual) Lymphocytes % (Manual) Seg Neutrophils # Man Lymphocytes # (Manual) Monocytes # (Manual) PT INR APTT VBG pH Sodium Potassium Chloride 114.4 H Carbon Dioxide 18 L BUN 53 H Creatinine 1.6 H Glucose 73 L POC Glucose 148 H Calcium 7.9 L Phosphorus Magnesium AST Total Creatine Kinase CK-MB (CK-2) Troponin T Total Protein Albumin Assessment and Plan 53 y/o male admitted with altered mental state, found to be in DKA 1. Anion Gap closed. Agree with stopping insulin drip and placing on long acting insuling therapy. 2. Feed patient, has G-Tube 3. Agree with abx for pneumonia, given presentation and where he was found, likely aspirated. 4. Will bolus 3 more liters of normal saline. Spoke with nursing in regards to weaning pressors for maps of 65 or greater. 5. If able to come off pressors, will not need ICU care. CCT 31 minutes.
[2019-02-14] MEDS ORDERED: SODIUM BICARBONATE FEEDTUBE PRN ×2 (12:59→15:15)
[2019-02-14] MEDS ORDERED: SIMPLE SYRUP FEEDTUBE PRN ×4 (12:59→15:15)
[2019-02-14] MEDS ORDERED: PANCREAZE DR 10,500 UNIT FEEDTUBE PRN ×2 (12:59→15:15)
[2019-02-14] MEDS ORDERED: NACL 0.9% 1000 ML 1,000 ML IV SCH (13:00)
[2019-02-14] MEDS ORDERED: NACL 0.9% 1000 ML 2,000 ML IV ONE ×2 (13:00→13:51)
--- NOTE | 2019-02-14 13:03 | Progress Note ---
Assessment and Plan Assessment and plan: --Diabetic ketoacidosis; On DKA protocol, insulin drip, rigorous IV hydration Blood sugars reasonable control, anion gap closed, acidosis improved DC insulin drip, start tube feeding Changed IV fluids normal saline, long-acting insulin 7030 Nutrition consult, diabetic education --Acute kidney injury; secondary to ATN Gentle hydration, avoid nephrotoxins, nephrology following --Elevated troponins/non-ST elevation [place] Cardiology evaluation noted and appreciated Continue current cardiac medications, follow echocardiogram --Possible septic shock; on pressors, IV antibiotics Follow blood cultures, ID evaluation if needed --Leukocytosis; secondary to sepsis, follow cultures Continue empiric antibiotics -- Rhabdomyolysis; gentle hydration, monitor CK levels --History of tongue cancer; supportive care --Status post PEG; PEG feeds, and PEG care --Severe malnutrition; nutrition consult, supportive care --DVT prophylaxis; Lovenox We will monitor the patient closely and adjust management as needed Patient is admitted to ICU, however if the blood pressures improve can downgraded to telemetry Critical care time 35 minutes. History Interval history: Patient seen and examined in the ER awaiting ICU placement Admitted with diabetic ketoacidosis, received insulin drip Blood sugars reasonably controlled Patient also hypotensive on the table fainted Patient is chronically ill-looking, severely malnourished cachectic In mild distress Vital signs noted Hospitalist Physical - Constitutional Vitals: Temp Pulse Resp BP Pulse Ox 97.4 F L 76 17 106/71 98 02/14/19 12:48 02/14/19 12:30 02/14/19 12:30 02/14/19 12:30 02/14/19 12:30 General appearance: Present: mild distress, cachectic, disheveled, other (severely malnourished) - EENT Eyes: Present: PERRL, EOM intact ENT: other (tongue cancer) - Neck Neck: Present: supple, normal ROM - Respiratory Respiratory effort: normal Respiratory: bilateral: diminished, rhonchi, negative: rales, wheezing - Cardiovascular Rhythm: regular Heart Sounds: Present: S1 & S2 - Extremities Extremities: no ischemia, No edema - Abdominal General gastrointestinal: soft, non-tender, non-distended, normal bowel sounds, other (PEG tube in place) - Integumentary Integumentary: Present: clear, warm - Psychiatric Psychiatric: appropriate mood/affect, cooperative - Neurologic Neurologic: moves all extremities Results - Labs CBC & Chem 7: 02/15/19 04:36 02/15/19 04:36 Labs: Laboratory Last Values WBC 24.4 K/mm3 (4.5-11.0) H 02/13/19 19:13 RBC 3.47 M/mm3 (3.65-5.03) L 02/13/19 19:13 Hgb 8.1 gm/dl (11.8-15.2) L 02/13/19 19:13 Hct 28.4 % (35.5-45.6) L 02/13/19 19:13 MCV 82 fl (84-94) L 02/13/19 19:13 MCH 23 pg (28-32) L 02/13/19 19:13 MCHC 29 % (32-34) L 02/13/19 19:13 RDW 21.1 % (13.2-15.2) H 02/13/19 19:13 Plt Count 419 K/mm3 (140-440) 02/13/19 19:13 Add Manual Diff Complete 02/13/19 19:13 Total Counted 100 02/13/19 19:13 Seg Neutrophils % 1[facility] [employer] [employer] 02/13/19 19:13 Seg Neuts % (Manual) 85.0 % (40.0-70.0) H 02/13/19 19:13 Band Neutrophils % 7.0 % 02/13/19 19:13 Lymphocytes % (Manual) 1.0 % (13.4-35.0) L 02/13/19 19:13 Reactive Lymphs % (Man) 0 % 02/13/19 19:13 Monocytes % (Manual) 7.0 % (0.0-7.3) 02/13/19 19:13 Eosinophils % (Manual) 0 % (0.0-4.3) 02/13/19 19:13 Basophils % (Manual) 0 % (0.0-1.8) 02/13/19 19:13 Metamyelocytes % 0 % 02/13/19 19:13 Myelocytes % 0 % 02/13/19 19:13 Promyelocytes % 0 % 02/13/19 19:13 Blast Cells % 0 % 02/13/19 19:13 Nucleated RBC % Not Reportable 02/13/19 19:13 Seg Neutrophils # Man 20.7 K/mm3 (1.8-7.7) H 02/13/19 19:13 Band Neutrophils # 1.7 K/mm3 02/13/19 19:13 Lymphocytes # (Manual) 0.2 K/mm3 (1.2-5.4) L 02/13/19 19:13 Abs React Lymphs (Man) 0.0 K/mm3 02/13/19 19:13 Monocytes # (Manual) 1.7 K/mm3 (0.0-0.8) H 02/13/19 19:13 Eosinophils # (Manual) 0.0 K/mm3 (0.0-0.4) 02/13/19 19:13 Basophils # (Manual) 0.0 K/mm3 (0.0-0.1) 02/13/19 19:13 Metamyelocytes # 0.0 K/mm3 02/13/19 19:13 Myelocytes # 0.0 K/mm3 02/13/19 19:13 Promyelocytes # 0.0 K/mm3 02/13/19 19:13 Blast Cells # 0.0 K/mm3 02/13/19 19:13 WBC Morphology Not Reportable 02/13/19 19:13 Hypersegmented Neuts Not Reportable 02/13/19 19:13 Hyposegmented Neuts Not Reportable 02/13/19 19:13 Hypogranular Neuts Not Reportable 02/13/19 19:13 Smudge Cells Not Reportable 02/13/19 19:13 Toxic Granulation Not Reportable 02/13/19 19:13 Toxic Vacuolation Not Reportable 02/13/19 19:13 Dohle Bodies Not Reportable 02/13/19 19:13 Pelger-Huet Anomaly Not Reportable 02/13/19 19:13 Kendrick Rods Not Reportable 02/13/19 19:13 Platelet Estimate Consistent w auto 02/13/19 19:13 Clumped Platelets Not Reportable 02/13/19 19:13 Plt Clumps, EDTA Not Reportable 02/13/19 19:13 Large Platelets Not Reportable 02/13/19 19:13 Giant Platelets Not Reportable 02/13/19 19:13 Platelet Satelliting Not Reportable 02/13/19 19:13 Plt Morphology Comment Not Reportable 02/13/19 19:13 RBC Morphology Not Reportable 02/13/19 19:13 Dimorphic RBCs Not Reportable 02/13/19 19:13 Polychromasia Not Reportable 02/13/19 19:13 Hypochromasia 1+ 02/13/19 19:13 Poikilocytosis 3+ 02/13/19 19:13 Anisocytosis 2+ 02/13/19 19:13 Microcytosis Not Reportable 02/13/19 19:13 Macrocytosis Not Reportable 02/13/19 19:13 Spherocytes Not Reportable 02/13/19 19:13 Pappenheimer Bodies Not Reportable 02/13/19 19:13 Sickle Cells Not Reportable 02/13/19 19:13 Target Cells Not Reportable 02/13/19 19:13 Tear Drop Cells Not Reportable 02/13/19 19:13 Ovalocytes 2+ 02/13/19 19:13 Helmet Cells Not Reportable 02/13/19 19:13 Jose-[place] Bodies Not Reportable 02/13/19 19:13 [place] Rings Not Reportable 02/13/19 19:13 [place] Cells 3+ 02/13/19 19:13 Bite Cells Not Reportable 02/13/19 19:13 Crenated Cell Not Reportable 02/13/19 19:13 Elliptocytes Not Reportable 02/13/19 19:13 Acanthocytes (Spur) Not Reportable 02/13/19 19:13 Rouleaux Not Reportable 02/13/19 19:13 Hemoglobin C Crystals Not Reportable 02/13/19 19:13 Schistocytes Few 02/13/19 19:13 Malaria parasites Not Reportable 02/13/19 19:13 Ulices Bodies Not Reportable 02/13/19 19:13 Hem Pathologist Commnt No 02/13/19 19:13 PT 18.4 Sec. (12.2-14.9) H 02/13/19 19:13 INR 1.43 (0.87-1.13) H 02/13/19 19:13 APTT 44.5 Sec. (24.2-36.6) H 02/13/19 19:13 VBG pH 7.138 (7.320-7.420) L* 02/13/19 19:13 Sodium 144 mmol/L (137-145) 02/14/19 06:02 Potassium 3.8 mmol/L (3.6-5.0) 02/14/19 06:02 Chloride 114.4 mmol/L (98-107) H 02/14/19 06:02 Carbon Dioxide 18 mmol/L (22-30) L 02/14/19 06:02 Anion Gap 15 mmol/L 02/14/19 06:02 BUN 53 mg/dL (9-20) H 02/14/19 06:02 Creatinine 1.6 mg/dL (0.8-1.5) H 02/14/19 06:02 Estimated GFR 46 ml/min 02/14/19 06:02 BUN/Creatinine Ratio 33 % 02/14/19 06:02 Glucose 73 mg/dL (75-100) L 02/14/19 06:02 POC Glucose 85 (70-105) 02/14/19 09:37 Calcium 7.9 mg/dL (8.4-10.2) L 02/14/19 06:02 Phosphorus 4.20 mg/dL (2.5-4.5) D 02/13/19 23:01 Magnesium 2.50 mg/dL (1.7-2.3) H 02/13/19 23:01 Total Bilirubin 0.20 mg/dL (0.1-1.2) 02/13/19 19:13 AST 66 units/L (5-40) H 02/13/19 19:13 ALT 28 units/L (7-56) 02/13/19 19:13 Alkaline Phosphatase 93 units/L (35-129) 02/13/19 19:13 Total Creatine Kinase 2204 units/L (55-170) H 02/14/19 06:02 CK-MB (CK-2) 38.5 ng/mL (0.0-4.0) H 02/14/19 06:02 CK-MB (CK-2) Rel Index 1.7 (0-4) 02/14/19 06:02 Troponin T 0.684 ng/mL (0.00-0.029) H* 02/14/19 06:02 Total Protein 5.8 g/dL (6.3-8.2) L 02/13/19 19:13 Albumin 2.5 g/dL (3.9-5) L 02/13/19 19:13 Albumin/Globulin Ratio 0.8 % 02/13/19 19:13 Triglycerides 96 mg/dL (2-149) 02/13/19 19:13 Cholesterol 138 mg/dL (50-199) 02/13/19 19:13 LDL Cholesterol Direct 94 mg/dL (50-130) 02/13/19 19:13 HDL Cholesterol 40 mg/dL (40-59) 02/13/19 19:13 Cholesterol/HDL Ratio 3.45 % 02/13/19 19:13 Lipase 17 units/L (13-60) 02/13/19 19:13 Urine Color Yellow (Yellow) 02/13/19 23:00 Urine Turbidity Clear (Clear) 02/13/19 23:00 Urine pH 5.0 (5.0-7.0) 02/13/19 23:00 Ur Specific [place] 1.024 (1.003-1.030) 02/13/19 23:00 Urine Protein <15 mg/dl mg/dL (Negative) 02/13/19 23:00 Urine Glucose (UA) >=500 mg/dL (Negative) 02/13/19 23:00 Urine Ketones 20 mg/dL (Negative) 02/13/19 23:00 Urine Blood Mod (Negative) 02/13/19 23:00 Urine Nitrite Neg (Negative) 02/13/19 23:00 Urine Bilirubin Neg (Negative) 02/13/19 23:00 Urine Urobilinogen < 2.0 mg/dL (<2.0) 02/13/19 23:00 Ur Leukocyte Esterase Neg (Negative) 02/13/19 23:00 Urine WBC (Auto) 3.0 /HPF (0.0-6.0) 02/13/19 23:00 Urine RBC (Auto) 6.0 /HPF (0.0-6.0) 02/13/19 23:00 Active Medications - Current Medications Current Medications: Generic Name Dose Route Start Last Admin Trade Name Freq PRN Reason Stop Dose Admin Acetaminophen 650 mg 02/13/19 22:08 Tylenol PO Q4H PRN Fever >101 Lipase/Protease/Amylase 1 each 02/14/19 12:59 Pancreaze 10,500 Unit FEEDTUBE PRN PRN For Clogged Feeding Tube Aspirin 325 mg 02/14/19 12:00 Aspirin PO QDAY THANIA Dextrose 0 ml 02/13/19 22:03 D50w (25gm) Syringe IV PRN PRN Hypoglycemia Heparin Sodium (Porcine) 5,000 unit 02/13/19 22:00 02/14/19 11:45 Heparin SUB-Q 5,000 unit Q12HR THANIA Administration Norepinephrine 4 mg in 250 mls @ 7.5 mls/hr 02/13/19 20:14 02/14/19 11:30 Levophed Drip 4 Mg/Ns 250 Ml IV 02/15/19 05:33 Infused TITR ONE Titration Protocol 2 MCG/MIN Sodium Chloride 1,000 mls @ 200 mls/hr 02/13/19 23:00 Nacl 0.9% 1000 Ml IV DIRECT THANIA Piperacillin Sod/Tazobactam Sod 3.375 gm in 50 mls @ 100 mls/hr 02/14/19 06:00 02/14/19 07:25 Zosyn/Ns 3.375gm/50ml IV 100 mls/hr Q8HR THANIA Administration Protocol Sodium Chloride 1,000 mls @ 999 mls/hr 02/14/19 13:51 Nacl 0.9% 1000 Ml IV 02/14/19 14:51 BOLUS ONE Sodium Chloride 2,000 mls @ 999 mls/hr 02/14/19 13:51 Nacl 0.9% 1000 Ml IV 02/14/19 15:51 ONCE ONE Insulin Human Isoph/Insulin Regular 8 unit 02/14/19 17:00 Humulin 70/30 SUB-Q BIDDIAB THANIA Insulin Human Lispro 0 unit 02/14/19 14:00 Humalog SUB-Q Q6H [facility] Protocol Ondansetron HCl 4 mg 02/13/19 22:07 Zofran IV Q8H PRN Nausea And Vomiting Simple Syrup 15 ml 02/14/19 12:59 Simple Syrup FEEDTUBE PRN PRN Hypoglycemia Simple Syrup 30 ml 02/14/19 12:59 Simple Syrup FEEDTUBE PRN PRN Hypoglycemia Sodium Bicarbonate 325 mg 02/14/19 12:59 Sodium Bicarbonate FEEDTUBE PRN PRN For Clogged Feeding Tube Nutrition/Malnutrition Assess - Dietary Evaluation Nutrition/Malnutrition Findings: Nutrition Notes Start: 02/14/19 10:17 Freq: Status: Active Protocol: Document 02/14/19 10:17 CP (Rec: 02/14/19 10:24 CP [id number]) Co-Sign 02/14/19 10:17 LP Nutrition Notes Need for Assessment generated from: MD Order,Education Initial or Follow up Assessment Current Diagnosis Diabetes Other Pertinent Diagnosis DKA, rhabdomolysis, bilaterial pneumonia, hypothermia, elevated troponin Current Diet NPO Labs/Tests BUN 53 Cr 1.6 POC Glucose 148 Height 5 ft 9 in Weight 49.895 kg [place] Body Weight (kg) 72.72 BMI 16.2 Weight Status Underweight Subjective/Other Information MD screen for DKA. Pt has AMS and is unable to receive education at this time. Percent of energy/protein needs met: 0%/0% Burn Absent Trauma Absent #1 Nutrition Diagnosis Inadequate energy intake Etiology DKA As Evidenced by Signs and Symptoms NPO status Is patient on ventilator? No Is Patient Ambulatory and/or Out of Bed No REE-([facility]-confined to bed) [phone] Calculation Used for Recommendations [facility] Additional Notes Pro 60-80g (1.2-1.6g/kg) Fluid 1 mL/kcal Nutrition Intervention Change Diet Order: Advance per MD request Goal #1 Diet advancement Anticipated Discharge Needs: Unable to determine at this time Follow-Up By: 02/15/19 Additional Comments F/U: Diet advancement
[2019-02-14] MEDS ORDERED: NACL 0.9% 1000 ML 2,000 ML ONE (13:11)
[2019-02-14 13:48] LABS: BUN/Creatinine Ratio 43; Blood Urea Nitrogen 52 mg/dL (9-20); Calcium 7.5 mg/dL (8.4-10.2); Hemolysis Index 85
[2019-02-14] MEDS ORDERED: NACL 0.9% 1000 ML 1,000 ML IV ONE (13:51)
[2019-02-14] MEDS: HumaLOG SUB-Q SCH ×2 (14:14→21:53)
[2019-02-14] MEDS: ASPIRIN PO SCH (15:06)
[2019-02-14 16:01] LABS: Calcium 7.4 mg/dL (8.4-10.2)
[2019-02-14] MEDS ORDERED: HumaLOG SUB-Q SCH (16:30)
[2019-02-14] MEDS: COMPAZINE PO SCH ×2 (19:14→23:45)
[2019-02-14 19:57] LABS: Calcium 6.8 mg/dL (8.4-10.2)
[2019-02-14] MEDS ORDERED: NACL 0.9% 1000 ML 3,000 ML IV ONE (21:10)
[2019-02-14] MEDS ORDERED: HumuLIN R ONE (21:53)
--- NOTE | 2019-02-14 21:57 | Consultation ---
REFERRING PHYSICIAN: ER physician. HISTORY OF PRESENT ILLNESS: The patient is a 53-year-old gentleman who was found down in a hotel bathroom floor, covered with vomit and feces. EMS was called. The patient is a poor historian. He is seen in the Emergency Room, is alert and oriented x 3, a very poor historian, unable to recall the events of the last day. Does not know where he is. Very comfortable, denies any chest pain, shortness of breath, syncope or presyncope. He is in restraints. Nurse is at bedside as well. PAST MEDICAL HISTORY: Hypertension, coronary artery disease status post SD, questionable history of congestive heart failure, colitis, recent tongue cancer with surgery, chemotherapy, history of hypercholesterolemia. PAST SURGICAL HISTORY: As above. FAMILY HISTORY: Unable to obtain. SOCIAL HISTORY: Denies smoking or alcohol. MEDICATIONS: Inpatient and outpatient medications reviewed. ALLERGIES: BUTORPHANOL, CODEINE, DIAZEPAM, IODINE, PHENOBARBITAL. REVIEW OF SYSTEMS: As per HPI. At this point, denies fevers, chills, abdominal pain, hematochezia, melena or bleeding. PHYSICAL EXAMINATION: VITAL SIGNS: Blood pressure is 106/60, is in sinus rhythm, afebrile. Tele reveals sinus rhythm. No dysrhythmias. HEENT: Sclerae are icteric. PERRLA. NECK: Supple. No mass or JVD. CHEST: Clear to auscultation bilaterally. CARDIOVASCULAR: Regular rhythm, S1, S2. ABDOMEN: Soft, nontender, nondistended. Normoactive bowel sounds in 4 quadrants. No mass or bruits. EXTREMITIES: No cyanosis, clubbing, edema. Good peripheral pulses. SKIN: Intact. No rashes. LABORATORY DATA: CT of the head shows no evidence of acute intracranial process, finding of previous right frontotemporoparietal craniotomy with encephalomalacia and underlying right frontal and temporal lobes. Chest x-ray shows questionable right lung infiltrate. ECG shows sinus rhythm with deep T-wave inversions anteriorly. This is a new change for him. Also prolonged QT. WBCs 24.4, hemoglobin 8.1, hematocrit 28.4, platelets 419; pH 7.1. He was hypotensive on arrival. Creatinine yesterday 1.9, today 1.6; BUN 55. Sodium 144. Troponin 0.69 and 0.68, glucose greater than 500 upon arrival. ASSESSMENT AND PLAN: In summary, the patient is a pleasant 53-year-old gentleman. 1. Altered mental status, unclear baseline. 2. Abnormal EKG with prolonged QT and T-wave inversions anteriorly. He is clinically hemodynamically stable and chest pain free. 3. Rhabdomyolysis with elevated CK, mildly elevated troponin, flat, likely secondary to above and less likely to be acute plaque rupture, primary cardiac disturbance. 4. Metabolic acidemia. 5. Uncontrolled diabetes/diabetic ketoacidosis. At this point, the patient is clinically stable. No chest pain. Initiate aspirin therapy given abnormal EKG. Wean off pressors as tolerated. Check echocardiogram. Continue broad-spectrum antibiotics for septic shock. Once he stabilizes and if his mental status normalizes, we will consider ischemic evaluation. Thank you for this consultation. We will follow along with you. JOB# [id number] ZAID/MARGARET
[2019-02-14] MEDS ORDERED: HumaLOG SUB-Q ONE (22:19)
[2019-02-15] MEDS ORDERED: LEVOPHED DRIP 4 MG/NS 250 ML 4 MG/250 ML BAG IV ONE (01:45)
[2019-02-15 02:15] LABS: BUN/Creatinine Ratio 35; Blood Urea Nitrogen 42 mg/dL (9-20); Calcium 6.6 mg/dL (8.4-10.2); Hemolysis Index 24
[2019-02-15] MEDS ORDERED: HumaLOG SUB-Q ONE ×3 (03:07→21:37)
[2019-02-15] MEDS: HumaLOG SUB-Q SCH ×4 (03:10→21:36)
[2019-02-15] MEDS: LEVOPHED DRIP 4 MG/NS 250 ML 4 MG/250 ML BAG IV ONE ×2 (03:20→06:15)
[2019-02-15 05:16] LABS: Hematocrit 22.6 % (35.5-45.6); Hemoglobin 6.9 gm/dl (11.8-15.2); Mean Corpuscular HGB Conc 31 % (32-34); Mean Corpuscular Volume 78 fl (84-94); Platelet Count 345 K/mm3 (140-440); Red Blood Count 2.91 M/mm3 (3.65-5.03)
[2019-02-15 05:39] LABS: BUN/Creatinine Ratio 35; Blood Urea Nitrogen 39 mg/dL (9-20); Calcium 6.6 mg/dL (8.4-10.2); Hemolysis Index 104
[2019-02-15 05:43] LABS: Red Cell Distribution Width 20.2 % (13.2-15.2)
[2019-02-15] MEDS: COMPAZINE PO SCH ×3 (06:13→19:26)
[2019-02-15] MEDS: ZOSYN/NS 3.375GM/50ML 3.375 GM/50 ML BAG IV SCH ×2 (06:13→15:52)
[2019-02-15] MEDS ORDERED: LEVOPHED DRIP 4 MG/NS 250 ML 4 MG/250 ML BAG IV SCH (07:00)
[2019-02-15 07:25] LABS: Eosinophils % (Manual) 0 % (0.0-4.3); Total Cells Counted 100
[2019-02-15 07:26] LABS: Anisocytosis 1+; Basophils % (Manual) 0 % (0.0-1.8); Hypochromasia Few; Ovalocytes 1+; Poikilocytosis 1+; Schistocytes Rare
[2019-02-15 07:27] LABS: Platelet Estimate Consistent w Auto
[2019-02-15] MEDS ORDERED: ASPIRIN ONE (10:05)
[2019-02-15] MEDS ORDERED: HEPARIN ONE (10:05)
[2019-02-15] MEDS: ASPIRIN PO SCH (10:29)
[2019-02-15] MEDS: HEPARIN SUB-Q SCH (10:29)
[2019-02-15 11:00] LABS: Creatine Kinase MB 24.9 ng/mL (0.0-4.0)
[2019-02-15] MEDS ORDERED: NACL 0.9% 1000 ML 1,000 ML IV SCH (11:00)
[2019-02-15] MEDS ORDERED: SIMPLE SYRUP FEEDTUBE PRN (11:27)
--- NOTE | 2019-02-15 11:31 | Progress Note ---
Assessment and Plan - Patient Problems (1) Acute kidney failure with tubular necrosis Current Visit: Yes Status: Acute Plan to address problem: suspect CHASE due to ATN in the setting of DKA/septic shock and decreased renal perfusion. renal function improved with glucose control s/p IVF. Pt is now developing hypernatremia/hyperchloremic met acidosis, will increase free water flushes via PEG to 250 q4hr. avoid nephrotoxins, NSAIDs IV contrast. Will mo nitor lytes/renal parameters closely and make further recommendations. (2) DKA (diabetic ketoacidoses) Current Visit: Yes Status: Acute Plan to address problem: glucose control as per primary attending (3) Pneumonia Current Visit: Yes Status: Acute Plan to address problem: cont ABX treatment with zosyn (4) Septic shock Current Visit: Yes Status: Acute Plan to address problem: cont ABXs, pt now stable off vasopressor support. (5) Rhabdomyolysis Current Visit: Yes Status: Acute Plan to address problem: CPK level trending down. Subjective Date of service: 02/15/19 Principal diagnosis: CHASE Interval history: Pt awake, alert, in NAD. off Insulin gtt Objective - Vital Signs Vital signs: Vital Signs - 12hr 02/14/19 02/14/19 02/14/19 23:30 23:31 23:41 Temperature Pulse Rate 97 H 103 H 104 H Respiratory 33 H 49 H 42 H Rate Blood Pressure 115/84 115/84 115/84 O2 Sat by Pulse Oximetry 02/14/19 02/14/19 02/15/19 23:49 23:51 00:00 Temperature Pulse Rate 105 H 96 H Respiratory 40 H 43 H Rate Blood Pressure 128/86 128/86 O2 Sat by Pulse 94 Oximetry 02/15/19 02/15/19 02/15/19 00:21 00:30 00:41 Temperature Pulse Rate 105 H 99 H 89 Respiratory 43 H 47 H 44 H Rate Blood Pressure 95/44 122/84 O2 Sat by Pulse Oximetry 02/15/19 02/15/19 02/15/19 00:51 01:00 01:11 Temperature Pulse Rate 103 H 96 H 91 H Respiratory 46 H 25 H 43 H Rate Blood Pressure 122/84 128/84 128/84 O2 Sat by Pulse Oximetry 02/15/19 02/15/19 02/15/19 01:21 01:31 01:41 Temperature Pulse Rate 89 113 H 99 H Respiratory 40 H 44 H 46 H Rate Blood Pressure 121/76 O2 Sat by Pulse Oximetry 02/15/19 02/15/19 02/15/19 01:51 02:00 02:11 Temperature Pulse Rate Respiratory 48 H 46 H 49 H Rate Blood Pressure 141/101 128/90 128/90 O2 Sat by Pulse Oximetry 02/15/19 02/15/19 02/15/19 02:21 02:31 02:41 Temperature Pulse Rate 108 H 96 H 102 H Respiratory 46 H 45 H 33 H Rate Blood Pressure 101/67 113/68 113/68 O2 Sat by Pulse Oximetry 02/15/19 02/15/19 02/15/19 02:51 03:00 03:11 Temperature Pulse Rate 101 H 96 H 94 H Respiratory 21 43 H 44 H Rate Blood Pressure 112/70 122/80 118/73 O2 Sat by Pulse 95 Oximetry 02/15/19 02/15/19 02/15/19 03:21 03:25 03:30 Temperature Pulse Rate 100 H 91 H 85 Respiratory 42 H 48 H 46 H Rate Blood Pressure 115/84 115/84 121/88 O2 Sat by Pulse 94 100 100 Oximetry 02/15/19 02/15/19 02/15/19 03:41 03:51 04:01 Temperature Pulse Rate 89 85 86 Respiratory 48 H 45 H 42 H Rate Blood Pressure 121/88 127/82 124/69 O2 Sat by Pulse 100 100 100 Oximetry 02/15/19 02/15/19 02/15/19 04:11 04:21 04:30 Temperature Pulse Rate 84 102 H 94 H Respiratory 38 H 45 H 43 H Rate Blood Pressure 124/69 109/76 117/87 O2 Sat by Pulse 100 100 100 Oximetry 02/15/19 02/15/19 02/15/19 04:41 04:51 05:00 Temperature Pulse Rate 102 H 99 H 84 Respiratory 45 H 45 H 42 H Rate Blood Pressure 117/87 123/82 113/72 O2 Sat by Pulse 100 100 100 Oximetry 02/15/19 02/15/19 02/15/19 05:11 05:15 05:30 Temperature Pulse Rate 99 H 100 H 99 H Respiratory 39 H 50 H 39 H Rate Blood Pressure 113/72 118/67 120/77 O2 Sat by Pulse 100 100 100 Oximetry 02/15/19 02/15/1902/15/19 05:45 06:01 06:15 Temperature Pulse Rate 84 111 H 99 H Respiratory 34 H 52 H 42 H Rate Blood Pressure 119/76 119/76 113/56 O2 Sat by Pulse 100 100 99 Oximetry 02/15/19 02/15/19 02/15/19 06:31 06:45 07:00 Temperature Pulse Rate 104 H 92 H 92 H Respiratory 44 H 44 H 25 H Rate Blood Pressure 88/41 93/32 93/32 O2 Sat by Pulse 100 100 100 Oximetry 02/15/19 02/15/19 02/15/19 07:15 07:30 07:45 Temperature Pulse Rate 70 82 80 Respiratory 32 H 20 28 H Rate Blood Pressure 86/53 99/48 96/41 O2 Sat by Pulse 100 100 100 Oximetry 02/15/19 02/15/19 02/15/19 08:00 08:12 08:15 Temperature Pulse Rate 74 71 84 Respiratory 26 H 34 H 38 H Rate Blood Pressure 99/58 105/67 105/67 O2 Sat by Pulse 100 100 100 Oximetry 02/15/19 02/15/19 02/15/19 08:30 08:43 08:45 Temperature 98.6 F Pulse Rate 69 71 Respiratory 30 H 24 Rate Blood Pressure 94/52 99/65 O2 Sat by Pulse 100 100 Oximetry 02/15/19 02/15/19 02/15/19 09:00 09:13 09:15 Temperature Pulse Rate 70 69 Respiratory 32 H 29 H Rate Blood Pressure 109/65 96/60 O2 Sat by Pulse 100 100 100 Oximetry 02/15/19 02/15/19 02/15/19 09:30 09:45 10:00 Temperature Pulse Rate 81 68 85 Respiratory 26 H 23 20 Rate Blood Pressure 100/64 100/60 98/65 O2 Sat by Pulse 100 100 100 Oximetry 02/15/19 02/15/19 02/15/19 10:15 10:30 10:45 Temperature Pulse Rate 74 75 88 Respiratory 26 H 22 25 H Rate Blood Pressure 103/60 103/57 108/64 O2 Sat by Pulse 100 100 100 Oximetry 02/15/19 11:00 Temperature Pulse Rate 91 H Respiratory 27 H Rate Blood Pressure 100/63 O2 Sat by Pulse 100 Oximetry - General Appearance General appearance: appears stated age, chronically ill EENT: ATNC, PERRL, mucous membranes dry Neck: no JVD Respiratory: Present: Clear to Ascultation Cardiology: regular, S1S2 Gastrointestinal: normoactive bowel sounds Integumentary: no rash Neurologic: no focal deficit, alert and oriented x3, strength 5/5, CN 3-12 intact Psychiatric: mood/affect appropriate, cooperative - Lab 02/15/19 04:36 02/15/19 04:36 Most recent lab results Calcium 6.6 mg/dL (8.4-10.2) L 02/15/19 04:36 Phosphorus 2.80 mg/dL (2.5-4.5) D 02/15/19 04:36 Magnesium 2.10 mg/dL (1.7-2.3) 02/15/19 04:36 Medications & Allergies - Medications Allergies/Adverse Reactions: Allergies butorphanol tartrate [From Stadol] Adverse Reaction (Verified 02/14/19 11:42) Unknown codeine Adverse Reaction (Verified 02/14/19 11:42) Unknown diazepam [From Valium] Adverse Reaction (Verified 02/14/19 11:42) Unknown iodine Adverse Reaction (Verified 02/14/19 11:42) Unknown phenobarbital Adverse Reaction (Verified 02/14/19 11:42) Unknown phenytoin sodium [From Dilantin] Adverse Reaction (Verified 02/14/19 11:42) Unknown phenytoin sodium extended [From Dilantin] Adverse Reaction (Verified 02/14/19 11:42) Unknown prednisone Adverse Reaction (Verified 02/14/19 11:42) Unknown sulfasalazine [From Azulfidine] Adverse Reaction (Verified 02/14/19 11:42) Unknown Home Medications: Home Medications Medication Instructions Recorded Confirmed Last Taken Type Insulin Glargine,Hum.rec.anlog 44 unit SQ QHS 02/14/19 02/14/19 Unknown History [Lantus Solostar] Levothyroxine [Synthroid] 25 mcg PO QAM 02/14/19 02/14/19 Unknown History Prochlorperazine [Compazine] 10 mg PO Q6HR 02/14/19 02/14/19 Unknown History Active Medications: Generic Name Dose Route Start Last Admin Trade Name Freq PRN Reason Stop Dose Admin Acetaminophen 650 mg 02/13/19 22:08 Tylenol PO Q4H PRN Fever >101 Lipase/Protease/Amylase 1 each 02/14/19 12:59 Pancremelodye 10,500 Unit FEEDTUBE PRN PRN For Clogged Feeding Tube Aspirin 325 mg 02/14/19 12:00 02/15/19 10:29 Aspirin PO 325 mg QDAY THANIA Administration Dextrose 0 ml 02/13/19 22:03 D50w (25gm) Syringe IV PRN PRN Hypoglycemia Heparin Sodium (Porcine) 5,000 unit 02/13/19 22:00 02/15/19 10:29 Heparin SUB-Q 5,000 unit Q12HR THANIA Administration Piperacillin Sod/Tazobactam Sod 3.375 gm in 50 mls @ 100 mls/hr 02/14/19 06:00 02/15/19 07:37 Zosyn/Ns 3.375gm/50ml IV Infused Q8HR [facility] Infusion Protocol Sodium Chloride 1,000 mls @ 200 mls/hr 02/14/19 13:00 Nacl 0.9% 1000 Ml IV DIRECT THANIA Norepinephrine 4 mg in 250 mls @ 7.5 mls/hr 02/15/19 07:00 02/15/19 09:00 Levophed Drip 4 Mg/Ns 250 Ml IV 4 mcg/min TITR THANIA 15 mls/hr Titration Protocol 2 MCG/MIN Sodium Chloride 1,000 mls @ 0 mls/hr 02/15/19 11:00 Nacl 0.9% 1000 Ml IV 02/16/19 11:01 ONCE THANIA As Directed Insulin Human Isoph/Insulin Regular 10 unit 02/15/19 08:00 02/15/19 08:30 Humulin 70/30 SUB-Q 10 unit BIDDIAB THANIA Administration Insulin Human Lispro 0 unit 02/14/19 14:00 02/15/19 08:29 Humalog SUB-Q Not Given Q6H [facility] Protocol Levothyroxine Sodium 25 mcg 02/15/19 10:00 Synthroid PO QAM THANIA Ondansetron HCl 4 mg 02/13/19 22:07 Zofran IV Q8H PRN Nausea And Vomiting Prochlorperazine Maleate 10 mg 02/14/19 18:00 02/15/19 06:13 Compazine PO 10 mg Q6HR THANIA Administration Simple Syrup 15 ml 02/14/19 12:59 Simple Syrup FEEDTUBE PRN PRN Hypoglycemia Simple Syrup 30 ml 02/14/19 12:59 Simple Syrup FEEDTUBE PRN PRN Hypoglycemia Sodium Bicarbonate 325 mg 02/14/19 12:59 Sodium Bicarbonate FEEDTUBE PRN PRN For Clogged Feeding Tube
[2019-02-15] MEDS: SYNTHROID PO SCH (11:46)
--- NOTE | 2019-02-15 12:22 | Progress Note ---
Assessment and Plan 53 y/o male admitted with altered mental state, found to be in DKA, resolved but still hypotensive 1. More IVF's 2. Wean pressors for maps >65. CCT 31 minutes. Subjective Date of service: 02/15/19 Principal diagnosis: CHASE Interval history: Patient still remains on pressors but only at 2mcgs. Ordered 2 more liters of saline boluses. Objective - Constitutional Vitals: Vital Signs - 12hr 02/15/19 02/15/19 02/15/19 00:30 00:41 00:51 Temperature Pulse Rate 99 H 89 103 H Respiratory 47 H 44 H 46 H Rate Blood Pressure 122/84 122/84 O2 Sat by Pulse Oximetry 02/15/19 02/15/19 02/15/19 01:00 01:11 01:21 Temperature Pulse Rate 96 H 91 H 89 Respiratory 25 H 43 H 40 H Rate Blood Pressure 128/84 128/84 121/76 O2 Sat by Pulse Oximetry 02/15/19 02/15/19 02/15/19 01:31 01:41 01:51 Temperature Pulse Rate 113 H 99 H Respiratory 44 H 46 H 48 H Rate Blood Pressure 141/101 O2 Sat by Pulse Oximetry 02/15/19 02/15/19 02/15/19 02:00 02:11 02:21 Temperature Pulse Rate 108 H Respiratory 46 H 49 H 46 H Rate Blood Pressure 128/90 128/90 101/67 O2 Sat by Pulse Oximetry 02/15/19 02/15/19 02/15/19 02:31 02:41 02:51 Temperature Pulse Rate 96 H 102 H 101 H Respiratory 45 H 33 H 21 Rate Blood Pressure 113/68 113/68 112/70 O2 Sat by Pulse Oximetry 02/15/19 02/15/19 02/15/19 03:00 03:11 03:21 Temperature Pulse Rate 96 H 94 H 100 H Respiratory 43 H 44 H 42 H Rate Blood Pressure 122/80 118/73 115/84 O2 Sat by Pulse 95 94 Oximetry 02/15/19 02/15/19 02/15/19 03:25 03:30 03:41 Temperature Pulse Rate 91 H 85 89 Respiratory 48 H 46 H 48 H Rate Blood Pressure 115/84 121/88 121/88 O2 Sat by Pulse 100 100 100 Oximetry 02/15/19 02/15/19 02/15/19 03:51 04:01 04:11 Temperature Pulse Rate 85 86 84 Respiratory 45 H 42 H 38 H Rate Blood Pressure 127/82 124/69 124/69 O2 Sat by Pulse 100 100 100 Oximetry 02/15/19 02/15/19 02/15/19 04:21 04:30 04:41 Temperature Pulse Rate 102 H 94 H 102 H Respiratory 45 H 43 H 45 H Rate Blood Pressure 109/76 117/87 117/87 O2 Sat by Pulse 100 100 100 Oximetry 02/15/19 02/15/19 02/15/19 04:51 05:00 05:11 Temperature Pulse Rate 99 H 84 99 H Respiratory 45 H 42 H 39 H Rate Blood Pressure 123/82 113/72 113/72 O2 Sat by Pulse 100 100 100 Oximetry 02/15/19 02/15/19 02/15/19 05:15 05:30 05:45 Temperature Pulse Rate 100 H 99 H 84 Respiratory 50 H 39 H 34 H Rate Blood Pressure 118/67 120/77 119/76 O2 Sat by Pulse 100 100 100 Oximetry 02/15/19 02/15/19 02/15/19 06:01 06:15 06:31 Temperature Pulse Rate 111 H 99 H 104 H Respiratory 52 H 42 H 44 H Rate Blood Pressure 119/76 113/56 88/41 O2 Sat by Pulse 100 99 100 Oximetry 02/15/19 02/15/19 02/15/19 06:45 07:00 07:15 Temperature Pulse Rate 92 H 92 H 70 Respiratory 44 H 25 H 32 H Rate Blood Pressure 93/32 93/32 86/53 O2 Sat by Pulse 100 100 100 Oximetry 02/15/19 02/15/19 02/15/19 07:30 07:45 08:00 Temperature Pulse Rate 82 80 74 Respiratory 20 28 H 26 H Rate Blood Pressure 99/48 96/41 99/58 O2 Sat by Pulse 100 100 100 Oximetry 02/15/19 02/15/19 02/15/19 08:12 08:15 08:30 Temperature Pulse Rate 71 84 69 Respiratory 34 H 38 H 30 H Rate Blood Pressure 105/67 105/67 94/52 O2 Sat by Pulse 100 100 100 Oximetry 02/15/19 02/15/19 02/15/19 08:43 08:45 09:00 Temperature 98.6 F Pulse Rate 71 70 Respiratory 24 32 H Rate Blood Pressure 99/65 109/65 O2 Sat by Pulse 100 100 Oximetry 02/15/19 02/15/19 02/15/19 09:13 09:15 09:30 Temperature Pulse Rate 69 81 Respiratory 29 H 26 H Rate Blood Pressure 96/60 100/64 O2 Sat by Pulse 100 100 100 Oximetry 02/15/19 02/15/19 02/15/19 09:45 10:00 10:15 Temperature Pulse Rate 68 85 74 Respiratory 23 20 26 H Rate Blood Pressure 100/60 98/65 103/60 O2 Sat by Pulse 100 100 100 Oximetry 02/15/19 02/15/19 02/15/19 10:30 10:45 11:00 Temperature Pulse Rate 75 88 91 H Respiratory 22 25 H 27 H Rate Blood Pressure 103/57 108/64 100/63 O2 Sat by Pulse 100 100 100 Oximetry - Labs CBC & Chem 7: 02/15/19 04:36 02/15/19 04:36 Labs: Abnormal lab results 02/14/19 02/14/19 02/14/19 Range/Units 07:40 10:46 11:54 WBC (4.5-11.0) K/mm3 RBC (3.65-5.03) M/mm3 Hgb (11.8-15.2) gm/dl Hct (35.5-45.6) % MCV (84-94) fl MCH (28-32) pg MCHC (32-34) % RDW (13.2-15.2) % Seg Neuts % (Manual) (40.0-70.0) % Lymphocytes % (Manual) (13.4-35.0) % Seg Neutrophils # Man (1.8-7.7) K/mm3 Lymphocytes # (Manual) (1.2-5.4) K/mm3 POC ABG pH (7.35-7.45) POC ABG pO2 (80-105) Sodium (137-145) mmol/L Potassium (3.6-5.0) mmol/L Chloride (98-107) mmol/L Carbon Dioxide (22-30) mmol/L BUN (9-20) mg/dL Glucose (75-100) mg/dL POC Glucose 106 H 122 H 175 H (70-105) Calcium (8.4-10.2) mg/dL Total Creatine Kinase (55-170) units/L CK-MB (CK-2) (0.0-4.0) ng/mL Troponin T (0.00-0.029) ng/mL 02/14/19 02/14/19 02/14/19 Range/Units 12:37 13:48 15:13 WBC (4.5-11.0) K/mm3 RBC (3.65-5.03) M/mm3 Hgb (11.8-15.2) gm/dl Hct (35.5-45.6) % MCV (84-94) fl MCH (28-32) pg MCHC (32-34) % RDW (13.2-15.2) % Seg Neuts % (Manual) (40.0-70.0) % Lymphocytes % (Manual) (13.4-35.0) % Seg Neutrophils # Man (1.8-7.7) K/mm3 Lymphocytes # (Manual) (1.2-5.4) K/mm3 POC ABG pH (7.35-7.45) POC ABG pO2 (80-105) Sodium (137-145) mmol/L Potassium 5.3 H D 5.2 H (3.6-5.0) mmol/L Chloride 112.8 H 116.8 H (98-107) mmol/L Carbon Dioxide 14 L 10 L (22-30) mmol/L BUN 52 H 50 H (9-20) mg/dL Glucose 157 H 147 H (75-100) mg/dL POC Glucose 135 H (70-105) Calcium 7.5 L 7.4 L (8.4-10.2) mg/dL Total Creatine Kinase (55-170) units/L CK-MB (CK-2) (0.0-4.0) ng/mL Troponin T (0.00-0.029) ng/mL 02/14/19 02/14/19 02/14/19 Range/Units 18:23 19:07 21:52 WBC (4.5-11.0) K/mm3 RBC (3.65-5.03) M/mm3 Hgb (11.8-15.2) gm/dl Hct (35.5-45.6) % MCV (84-94) fl MCH (28-32) pg MCHC (32-34) % RDW (13.2-15.2) % Seg Neuts % (Manual) (40.0-70.0) % Lymphocytes % (Manual) (13.4-35.0) % Seg Neutrophils # Man (1.8-7.7) K/mm3 Lymphocytes # (Manual) (1.2-5.4) K/mm3 POC ABG pH (7.35-7.45) POC ABG pO2 (80-105) Sodium 146 H (137-145) mmol/L Potassium 5.6 H (3.6-5.0) mmol/L Chloride 117.8 H (98-107) mmol/L Carbon Dioxide 11 L (22-30) mmol/L BUN 48 H (9-20) mg/dL Glucose 333 H (75-100) mg/dL POC Glucose 289 H 337 H (70-105) Calcium 6.8 L (8.4-10.2) mg/dL Total Creatine Kinase (55-170) units/L CK-MB (CK-2) (0.0-4.0) ng/mL Troponin T (0.00-0.029) ng/mL 02/15/19 02/15/19 02/15/19 Range/Units 01:16 03:02 03:24 WBC (4.5-11.0) K/mm3 RBC (3.65-5.03) M/mm3 Hgb (11.8-15.2) gm/dl Hct (35.5-45.6) % MCV (84-94) fl MCH (28-32) pg MCHC (32-34) % RDW (13.2-15.2) % Seg Neuts % (Manual) (40.0-70.0) % Lymphocytes % (Manual) (13.4-35.0) % Seg Neutrophils # Man (1.8-7.7) K/mm3 Lymphocytes # (Manual) (1.2-5.4) K/mm3 POC ABG pH 7.313 L (7.35-7.45) POC ABG pO2 68 L (80-105) Sodium 147 H (137-145) mmol/L Potassium (3.6-5.0) mmol/L Chloride 119.7 H (98-107) mmol/L Carbon Dioxide 10 L (22-30) mmol/L BUN 42 H (9-20) mg/dL Glucose 376 H (75-100) mg/dL POC Glucose 323 H (70-105) Calcium 6.6 L (8.4-10.2) mg/dL Total Creatine Kinase (55-170) units/L CK-MB (CK-2) (0.0-4.0) ng/mL Troponin T (0.00-0.029) ng/mL 02/15/19 02/15/19 02/15/19 Range/Units 04:36 04:36 04:36 WBC 19.1 H (4.5-11.0) K/mm3 RBC 2.91 L (3.65-5.03) M/mm3 Hgb 6.9 L (11.8-15.2) gm/dl Hct 22.6 L (35.5-45.6) % MCV 78 L (84-94) fl MCH 24 L (28-32) pg MCHC 31 L (32-34) % RDW 20.2 H (13.2-15.2) % Seg Neuts % (Manual) 98.0 H (40.0-70.0) % Lymphocytes % (Manual) 1.0 L (13.4-35.0) % Seg Neutrophils # Man 18.7 H (1.8-7.7) K/mm3 Lymphocytes # (Manual) 0.2 L (1.2-5.4) K/mm3 POC ABG pH (7.35-7.45) POC ABG pO2 (80-105) Sodium 149 H (137-145) mmol/L Potassium (3.6-5.0) mmol/L Chloride 121.3 H (98-107) mmol/L Carbon Dioxide 12 L (22-30) mmol/L BUN 39 H (9-20) mg/dL Glucose 242 H (75-100) mg/dL POC Glucose (70-105) Calcium 6.6 L (8.4-10.2) mg/dL Total Creatine Kinase 1661 H (55-170) units/L CK-MB (CK-2) 24.9 H (0.0-4.0) ng/mL Troponin T 0.205 H* D (0.00-0.029) ng/mL 02/15/19 Range/Units 08:15 WBC (4.5-11.0) K/mm3 RBC (3.65-5.03) M/mm3 Hgb (11.8-15.2) gm/dl Hct (35.5-45.6) % MCV (84-94) fl MCH (28-32) pg MCHC (32-34) % RDW (13.2-15.2) % Seg Neuts % (Manual) (40.0-70.0) % Lymphocytes % (Manual) (13.4-35.0) % Seg Neutrophils # Man (1.8-7.7) K/mm3 Lymphocytes # (Manual) (1.2-5.4) K/mm3 POC ABG pH (7.35-7.45) POC ABG pO2 (80-105) Sodium (137-145) mmol/L Potassium (3.6-5.0) mmol/L Chloride (98-107) mmol/L Carbon Dioxide (22-30) mmol/L BUN (9-20) mg/dL Glucose (75-100) mg/dL POC Glucose 153 H (70-105) Calcium (8.4-10.2) mg/dL Total Creatine Kinase (55-170) units/L CK-MB (CK-2) (0.0-4.0) ng/mL Troponin T (0.00-0.029) ng/mL Medications & Allergies - Medications Allergies/Adverse Reactions: Allergies butorphanol tartrate [From Stadol] Adverse Reaction (Verified 02/14/19 11:42) Unknown codeine Adverse Reaction (Verified 02/14/19 11:42) Unknown diazepam [From Valium] Adverse Reaction (Verified 02/14/19 11:42) Unknown iodine Adverse Reaction (Verified 02/14/19 11:42) Unknown phenobarbital Adverse Reaction (Verified 02/14/19 11:42) Unknown phenytoin sodium [From Dilantin] Adverse Reaction (Verified 02/14/19 11:42) Unknown phenytoin sodium extended [From Dilantin] Adverse Reaction (Verified 02/14/19 11:42) Unknown prednisone Adverse Reaction (Verified 02/14/19 11:42) Unknown sulfasalazine [From Azulfidine] Adverse Reaction (Verified 02/14/19 11:42) Unknown Home Medications: Home Medications Medication Instructions Recorded Confirmed Last Taken Type Insulin Glargine,Hum.rec.anlog 44 unit SQ QHS 02/14/19 02/14/19 Unknown History [Lantus Solostar] Levothyroxine [Synthroid] 25 mcg PO QAM 02/14/19 02/14/19 Unknown History Prochlorperazine [Compazine] 10 mg PO Q6HR 02/14/19 02/14/19 Unknown History Active Medications: Generic Name Dose Route Start Last Admin Trade Name Freq PRN Reason Stop Dose Admin Acetaminophen 650 mg 02/13/19 22:08 Tylenol PO Q4H PRN Fever >101 Lipase/Protease/Amylase 1 each 02/14/19 12:[address] 10,500 Unit FEEDTUBE PRN PRN For Clogged Feeding Tube Aspirin 325 mg 02/14/19 12:00 02/15/19 10:29 Aspirin PO 325 mg QDAY THANIA Administration Dextrose 0 ml 02/13/19 22:03 D50w (25gm) Syringe IV PRN PRN Hypoglycemia Heparin Sodium (Porcine) 5,000 unit 02/13/19 22:00 02/15/19 10:29 Heparin SUB-Q 5,000 unit Q12HR THANIA Administration Piperacillin Sod/Tazobactam Sod 3.375 gm in 50 mls @ 100 mls/hr 02/14/19 06:00 02/15/19 07:37 Zosyn/Ns 3.375gm/50ml IV Infused Q8HR THANIA Infusion Protocol Sodium Chloride 1,000 mls @ 200 mls/hr 02/14/19 13:00 Nacl 0.9% 1000 Ml IV DIRECT THANIA Norepinephrine 4 mg in 250 mls @ 7.5 mls/hr 02/15/19 07:00 02/15/19 09:00 Levophed Drip 4 Mg/Ns 250 Ml IV 4 mcg/min TITR THANIA 15 mls/hr Titration Protocol 2 MCG/MIN Sodium Chloride 1,000 mls @ 0 mls/hr 02/15/19 11:00 Nacl 0.9% 1000 Ml IV 02/16/19 11:01 ONCE THANIA As Directed Insulin Human Isoph/Insulin Regular 10 unit 02/15/19 08:00 02/15/19 08:30 Humulin 70/30 SUB-Q 10 unit BIDDIAB THANIA Administration Insulin Human Lispro 0 unit 02/14/19 14:00 02/15/19 08:29 Humalog SUB-Q Not Given Q6H [facility] Protocol Levothyroxine Sodium 25 mcg 02/15/19 10:00 02/15/19 11:46 Synthroid PO 25 mcg QAM THANIA Administration Ondansetron HCl 4 mg 02/13/19 22:07 Zofran IV Q8H PRN Nausea And Vomiting Prochlorperazine Maleate 10 mg 02/14/19 18:00 02/15/19 11:46 Compazine PO 10 mg Q6HR THANIA Administration Simple Syrup 15 ml 02/14/19 12:59 Simple Syrup FEEDTUBE PRN PRN Hypoglycemia Simple Syrup 30 ml 02/14/19 12:59 Simple Syrup FEEDTUBE PRN PRN Hypoglycemia Simple Syrup 30 ml 02/15/19 11:27 Simple Syrup FEEDTUBE PRN PRN Hypoglycemia Sodium Bicarbonate 325 mg 02/14/19 12:59 Sodium Bicarbonate FEEDTUBE PRN PRN For Clogged Feeding Tube
--- NOTE | 2019-02-15 14:34 | Progress Note ---
Assessment and Plan F/u ECG shows resolution of t-wave inversions. However, pt noted to be in AFib with CVR today. Not currently a candidate for initiation of systemic AC in setting of severe anemia. Troponin elevation pattern appears c/w NSTEMI type II. Await echo. Wean pressors as tolerated. The patient has been seen in conjunction with Dr. Arabella Cornejo who agrees with the assessment and plan of care. - Patient Problems (1) NSTEMI (non-ST elevated myocardial infarction) Current Visit: Yes Status: Acute Plan to address problem: type 2 (2) Abnormal ECG Current Visit: Yes Status: Acute (3) Atrial fibrillation Current Visit: Yes Status: Acute (4) Sepsis Current Visit: Yes Status: Suspected (5) Hypotension Current Visit: Yes Status: Acute (6) DKA (diabetic ketoacidoses) Current Visit: Yes Status: Acute (7) Acute kidney injury Current Visit: Yes Status: Acute (8) Rhabdomyolysis Current Visit: Yes Status: Acute (9) Altered mental status Current Visit: Yes Status: Acute (10) Anemia Current Visit: Yes Status: Acute Subjective Date of service: 02/15/19 Principal diagnosis: DKA Interval history: pt resting in bed, no apparent distress, no current complaints. remains on levophed gtt. noted to now be in AFib with CVR on telemetry. Objective Last Vital Signs Temp 98.6 F 02/15/19 08:43 Pulse 82 02/15/19 13:30 Resp 27 H 02/15/19 13:30 BP 106/65 02/15/19 13:30 Pulse Ox 94 02/15/19 13:30 - Physical Examination General: No Apparent Distress Cardiac: Positive: irregularly irregular, S1/S2 Lungs: Positive: Decreased Breath Sounds - Labs and Meds Cardiac Enzymes 02/15/19 Range/Units 04:36 CK-MB (CK-2) 24.9 H (0.0-4.0) ng/mL CBC 02/15/19 Range/Units 04:36 WBC 19.1 H (4.5-11.0) K/mm3 RBC 2.91 L (3.65-5.03) M/mm3 Hgb 6.9 L (11.8-15.2) gm/dl Hct 22.6 L (35.5-45.6) % Plt Count 345 (140-440) K/mm3 Comprehensive Metabolic Panel 02/14/19 02/14/19 02/15/19 Range/Units 15:13 19:07 01:16 Sodium 144 146 H 147 H (137-145) mmol/L Potassium 5.2 H 5.6 H 4.9 (3.6-5.0) mmol/L Chloride 116.8 H 117.8 H 119.7 H (98-107) mmol/L Carbon Dioxide 10 L 11 L 10 L (22-30) mmol/L BUN 50 H 48 H 42 H (9-20) mg/dL Creatinine 1.5 1.3 1.2 (0.8-1.5) mg/dL Glucose 147 H 333 H 376 H (75-100) mg/dL Calcium 7.4 L 6.8 L 6.6 L (8.4-10.2) mg/dL 02/15/19 Range/Units 04:36 Sodium 149 H (137-145) mmol/L Potassium 4.8 (3.6-5.0) mmol/L Chloride 121.3 H (98-107) mmol/L Carbon Dioxide 12 L (22-30) mmol/L BUN 39 H (9-20) mg/dL Creatinine 1.1 (0.8-1.5) mg/dL Glucose 242 H (75-100) mg/dL Calcium 6.6 L (8.4-10.2) mg/dL - Imaging and Cardiology EKG: report reviewed, image reviewed Echo: pending - Telemetry EKG Rhythm: Atrial Fibrillation
--- NOTE | 2019-02-15 16:20 | Progress Note ---
Assessment and Plan Assessment and plan: --Severe anemia; hemoglobin 6.9 No external evidence of bleeding, patient has history of tongue cancer Follow H&H, transfuse 1-2 units PRBC as needed --New onset A. fib with normal ventricular rate; Follow-up echocardiogram, not a candidate for chronic anticoagulation Secondary to severe anemia, cardiology following --Elevated troponins/non-ST elevation GA /type2 Cardiology following, follow echocardiogram --Diabetic ketoacidosis; resolved Continue current management --Type 2 diabetes mellitus; moderate control Accu-Chek sliding scale coverage and ADA diet, long-acting insulin Diabetic diet education, diabetic education, possible home health nurse upon discharge --Possible septic shock; remains on Levophed Titrate systolic blood pressure to more than 100, map 60-65 IV fluids, supportive care --Leukocytosis; secondary to sepsis, follow cultures Continue empiric antibiotics --Acute kidney injury; secondary to ATN; resolved Avoid nephrotoxins --Hypernatremia; DC normal saline, free water flushes Closely monitor electrolytes, --History of hypothyroidism; continue Synthroid -- Rhabdomyolysis; gentle hydration, trending down --History of tongue cancer; supportive care --Status post PEG; PEG feeds, patent. --Severe malnutrition; nutrition consult, supportive care --DVT prophylaxis; Lovenox We will monitor the patient closely and adjust management as needed Patient is awaiting ICU bed assignment, Consults and recommendations noted and appreciated Plan of care reviewed with the patient and his nurse Critical care time 31 minutes History Interval history: Patient seen and examined and they are awaiting ICU bed assignment Patient feels slightly better no new complaints Blood sugars well controlled on Novolin 70/30 insulin Patient remains on Levophed, mild improvement of blood pressures Alert awake oriented Vital signs noted Hospitalist Physical - Constitutional Vitals: Temp Pulse Resp BP Pulse Ox 98.6 F 77 27 H 92/60 100 02/15/19 08:43 02/15/19 16:05 02/15/19 16:05 02/15/19 16:05 02/15/19 16:05 General appearance: Present: no acute distress, cachectic, disheveled, other (severely malnourished) - EENT Eyes: Present: PERRL, EOM intact - Neck Neck: Present: supple, normal ROM - Respiratory Respiratory effort: normal Respiratory: bilateral: diminished, negative: rales, rhonchi, wheezing - Cardiovascular Rhythm: regular Heart Sounds: Present: S1 & S2 - Extremities Extremities: no ischemia, No edema - Abdominal General gastrointestinal: soft, non-tender, non-distended, normal bowel sounds, other (PEG tube in place) - Integumentary Integumentary: Present: clear, warm - Psychiatric Psychiatric: appropriate mood/affect - Neurologic Neurologic: CNII-XII intact, moves all extremities Results - Labs CBC & Chem 7: 02/15/19 04:36 02/15/19 04:36 Labs: Laboratory Last Values WBC 19.1 K/mm3 (4.5-11.0) H 02/15/19 04:36 RBC 2.91 M/mm3 (3.65-5.03) L 02/15/19 04:36 Hgb 6.9 gm/dl (11.8-15.2) L 02/15/19 04:36 Hct 22.6 % (35.5-45.6) L 02/15/19 04:36 MCV 78 fl (84-94) L 02/15/19 04:36 MCH 24 pg (28-32) L 02/15/19 04:36 MCHC 31 % (32-34) L 02/15/19 04:36 RDW 20.2 % (13.2-15.2) H 02/15/19 04:36 Plt Count 345 K/mm3 (140-440) 02/15/19 04:36 Add Manual Diff Complete 02/15/19 04:36 Total Counted 100 02/15/19 04:36 Seg Neutrophils % Drop Worker 02/15/19 04:36 Seg Neuts % (Manual) 98.0 % (40.0-70.0) H 02/15/19 04:36 Band Neutrophils % 0 % 02/15/19 04:36 Lymphocytes % (Manual) 1.0 % (13.4-35.0) L 02/15/19 04:36 Reactive Lymphs % (Man) 0 % 02/15/19 04:36 Monocytes % (Manual) 1.0 % (0.0-7.3) 02/15/19 04:36 Eosinophils % (Manual) 0 % (0.0-4.3) 02/15/19 04:36 Basophils % (Manual) 0 % (0.0-1.8) 02/15/19 04:36 Metamyelocytes % 0 % 02/15/19 04:36 Myelocytes % 0 % 02/15/19 04:36 Promyelocytes % 0 % 02/15/19 04:36 Blast Cells % 0 % 02/15/19 04:36 Nucleated RBC % Not Reportable 02/15/19 04:36 Seg Neutrophils # Man 18.7 K/mm3 (1.8-7.7) H 02/15/19 04:36 Band Neutrophils # 0.0 K/mm3 02/15/19 04:36 Lymphocytes # (Manual) 0.2 K/mm3 (1.2-5.4) L 02/15/19 04:36 Abs React Lymphs (Man) 0.0 K/mm3 02/15/19 04:36 Monocytes # (Manual) 0.2 K/mm3 (0.0-0.8) 02/15/19 04:36 Eosinophils # (Manual) 0.0 K/mm3 (0.0-0.4) 02/15/19 04:36 Basophils # (Manual) 0.0 K/mm3 (0.0-0.1) 02/15/19 04:36 Metamyelocytes # 0.0 K/mm3 02/15/19 04:36 Myelocytes # 0.0 K/mm3 02/15/19 04:36 Promyelocytes # 0.0 K/mm3 02/15/19 04:36 Blast Cells # 0.0 K/mm3 02/15/19 04:36 WBC Morphology Not Reportable 02/15/19 04:36 Hypersegmented Neuts Not Reportable 02/15/19 04:36 Hyposegmented Neuts Not Reportable 02/15/19 04:36 Hypogranular Neuts Not Reportable 02/15/19 04:36 Smudge Cells Not Reportable 02/15/19 04:36 Toxic Granulation Not Reportable 02/15/19 04:36 Toxic Vacuolation Not Reportable 02/15/19 04:36 Dohle Bodies Not Reportable 02/15/19 04:36 Pelger-Huet Anomaly Not Reportable 02/15/19 04:36 Kendrick Rods Not Reportable 02/15/19 04:36 Platelet Estimate Consistent w auto 02/15/19 04:36 Clumped Platelets Not Reportable 02/15/19 04:36 Plt Clumps, EDTA Not Reportable 02/15/19 04:36 Large Platelets Not Reportable 02/15/19 04:36 Giant Platelets Not Reportable 02/15/19 04:36 Platelet Satelliting Not Reportable 02/15/19 04:36 Plt Morphology Comment Not Reportable 02/15/19 04:36 RBC Morphology Not Reportable 02/15/19 04:36 Dimorphic RBCs Not Reportable 02/15/19 04:36 Polychromasia Not Reportable 02/15/19 04:36 Hypochromasia Few 02/15/19 04:36 Poikilocytosis 1+ 02/15/19 04:36 Anisocytosis 1+ 02/15/19 04:36 Microcytosis Not Reportable 02/15/19 04:36 Macrocytosis Not Reportable 02/15/19 04:36 Spherocytes Not Reportable 02/15/19 04:36 Pappenheimer Bodies Not Reportable 02/15/19 04:36 Sickle Cells Not Reportable 02/15/19 04:36 Target Cells Not Reportable 02/15/19 04:36 Tear Drop Cells Not Reportable 02/15/19 04:36 Ovalocytes 1+ 02/15/19 04:36 Helmet Cells Not Reportable 02/15/19 04:36 [place] Bodies Not Reportable 02/15/19 04:36 Mumford Rings Not Reportable 02/15/19 04:36 Geremias Cells Not Reportable 02/15/19 04:36 Bite Cells Not Reportable 02/15/19 04:36 Crenated Cell Not Reportable 02/15/19 04:36 Elliptocytes Not Reportable 02/15/19 04:36 Acanthocytes (Spur) Rare 02/15/19 04:36 Rouleaux Not Reportable 02/15/19 04:36 Hemoglobin C Crystals Not Reportable 02/15/19 04:36 Schistocytes Rare 02/15/19 04:36 Malaria parasites Not Reportable 02/15/19 04:36 Ulices Bodies Not Reportable 02/15/19 04:36 Hem Pathologist Commnt No 02/15/19 04:36 PT 18.4 Sec. (12.2-14.9) H 02/13/19 19:13 INR 1.43 (0.87-1.13) H 02/13/19 19:13 APTT 44.5 Sec. (24.2-36.6) H 02/13/19 19:13 POC ABG pH 7.313 (7.35-7.45) L 02/15/19 03:24 POC ABG pO2 68 (80-105) L 02/15/19 03:24 POC ABG HCO3 9.4 (22-26 mml/L) 02/15/19 03:24 POC ABG Total CO2 10 (23-27mmol/L) 02/15/19 03:24 POC ABG O2 Sat 92 02/15/19 03:24 POC ABG Base Excess -17 ((-2) - (+3)mmol/L) 02/15/19 03:24 VBG pH 7.138 (7.320-7.420) L* 02/13/19 19:13 FiO2 21 % 02/15/19 03:24 Sodium 149 mmol/L (137-145) H 02/15/19 04:36 Potassium 4.8 mmol/L (3.6-5.0) 02/15/19 04:36 Chloride 121.3 mmol/L (98-107) H 02/15/19 04:36 Carbon Dioxide 12 mmol/L (22-30) L 02/15/19 04:36 Anion Gap 21 mmol/L 02/15/19 04:36 BUN 39 mg/dL (9-20) H 02/15/19 04:36 Creatinine 1.1 mg/dL (0.8-1.5) 02/15/19 04:36 Estimated GFR > 60 ml/min 02/15/19 04:36 BUN/Creatinine Ratio 35 % 02/15/19 04:36 Glucose 242 mg/dL (75-100) H 02/15/19 04:36 POC Glucose 151 (70-105) H 02/15/19 14:17 Calcium 6.6 mg/dL (8.4-10.2) L 02/15/19 04:36 Phosphorus 2.80 mg/dL (2.5-4.5) D 02/15/19 04:36 Magnesium 2.10 mg/dL (1.7-2.3) 02/15/19 04:36 Total Bilirubin 0.20 mg/dL (0.1-1.2) 02/13/19 19:13 AST 66 units/L (5-40) H 02/13/19 19:13 ALT 28 units/L (7-56) 02/13/19 19:13 Alkaline Phosphatase 93 units/L (35-129) 02/13/19 19:13 Total Creatine Kinase 1661 units/L (55-170) H 02/15/19 04:36 CK-MB (CK-2) 24.9 ng/mL (0.0-4.0) H 02/15/19 04:36 CK-MB (CK-2) Rel Index 1.4 (0-4) 02/15/19 04:36 Troponin T 0.205 ng/mL (0.00-0.029) H* D 02/15/19 04:36 Total Protein 5.8 g/dL (6.3-8.2) L 02/13/19 19:13 Albumin 2.5 g/dL (3.9-5) L 02/13/19 19:13 Albumin/Globulin Ratio 0.8 % 02/13/19 19:13 Triglycerides 96 mg/dL (2-149) 02/13/19 19:13 Cholesterol 138 mg/dL (50-199) 02/13/19 19:13 LDL Cholesterol Direct 94 mg/dL (50-130) 02/13/19 19:13 HDL Cholesterol 40 mg/dL (40-59) 02/13/19 19:13 Cholesterol/HDL Ratio 3.45 % 02/13/19 19:13 Lipase 17 units/L (13-60) 02/13/19 19:13 Urine Color Yellow (Yellow) 02/13/19 23:00 Urine Turbidity Clear (Clear) 02/13/19 23:00 Urine pH 5.0 (5.0-7.0) 02/13/19 23:00 Ur Specific Lee 1.024 (1.003-1.030) 02/13/19 23:00 Urine Protein <15 mg/dl mg/dL (Negative) 02/13/19 23:00 Urine Glucose (UA) >=500 mg/dL (Negative) 02/13/19 23:00 Urine Ketones 20 mg/dL (Negative) 02/13/19 23:00 Urine Blood Mod (Negative) 02/13/19 23:00 Urine Nitrite Neg (Negative) 02/13/19 23:00 Urine Bilirubin Neg (Negative) 02/13/19 23:00 Urine Urobilinogen < 2.0 mg/dL (<2.0) 02/13/19 23:00 Ur Leukocyte Esterase Neg (Negative) 02/13/19 23:00 Urine WBC (Auto) 3.0 /HPF (0.0-6.0) 02/13/19 23:00 Urine RBC (Auto) 6.0 /HPF (0.0-6.0) 02/13/19 23:00 Active Medications - Current Medications Current Medications: Generic Name Dose Route Start Last Admin Trade Name Freq PRN Reason Stop Dose Admin Acetaminophen 650 mg 02/13/19 22:08 Tylenol PO Q4H PRN Fever >101 Lipase/Protease/Amylase 1 each 02/14/19 12:[address] 10,500 Unit FEEDTUBE PRN PRN For Clogged Feeding Tube Aspirin 325 mg 02/14/19 12:00 02/15/19 10:29 Aspirin PO 325 mg QDAY THANIA Administration Dextrose 0 ml 02/13/19 22:03 D50w (25gm) Syringe IV PRN PRN Hypoglycemia Heparin Sodium (Porcine) 5,000 unit 02/13/19 22:00 02/15/19 10:29 Heparin SUB-Q 5,000 unit Q12HR THANIA Administration Sodium Chloride 1,000 mls @ 200 mls/hr 02/14/19 13:00 Nacl 0.9% 1000 Ml IV DIRECT THANIA Norepinephrine 4 mg in 250 mls @ 7.5 mls/hr 02/15/19 07:00 02/15/19 14:34 Levophed Drip 4 Mg/Ns 250 Ml IV 2 mcg/min TITR THANIA 7.5 mls/hr Titration Protocol 2 MCG/MIN Sodium Chloride 1,000 mls @ 0 mls/hr 02/15/19 11:00 Nacl 0.9% 1000 Ml IV 02/16/19 11:01 ONCE THANIA As Directed Piperacillin Sod/Tazobactam Sod 3.375 gm in 50 mls @ 100 mls/hr 02/15/19 15:00 02/15/19 15:52 Zosyn/Ns 3.375gm/50ml IV 100 mls/hr Q8HR THANIA Administration Protocol Insulin Human Isoph/Insulin Regular 10 unit 02/15/19 08:00 02/15/19 08:30 Humulin 70/30 SUB-Q 10 unit BIDDIAB THANIA Administration Insulin Human Lispro 0 unit 02/14/19 14:00 02/15/19 14:37 Humalog SUB-Q 2 unit Q6H THANIA Administration Protocol Levothyroxine Sodium 25 mcg 02/15/19 10:00 02/15/19 11:46 Synthroid PO 25 mcg QAM THANIA Administration Ondansetron HCl 4 mg 02/13/19 22:07 Zofran IV Q8H PRN Nausea And Vomiting Prochlorperazine Maleate 10 mg 02/14/19 18:00 02/15/19 11:46 Compazine PO 10 mg Q6HR THANIA Administration Simple Syrup 15 ml 02/14/19 12:59 Simple Syrup FEEDTUBE PRN PRN Hypoglycemia Simple Syrup 30 ml 02/14/19 12:59 Simple Syrup FEEDTUBE PRN PRN Hypoglycemia Simple Syrup 30 ml 02/15/19 11:27 Simple Syrup FEEDTUBE PRN PRN Hypoglycemia Sodium Bicarbonate 325 mg 02/14/19 12:59 Sodium Bicarbonate FEEDTUBE PRN PRN For Clogged Feeding Tube Nutrition/Malnutrition Assess - Dietary Evaluation Nutrition/Malnutrition Findings: Nutrition Notes Start: 02/14/19 10:17 Freq: Status: Active Protocol: Document 02/14/19 10:17 CP (Rec: 02/14/19 10:24 CP [id number]) Co-Sign 02/14/19 10:17 LP Nutrition Notes Need for Assessment generated from: MD Order,Education Initial or Follow up Assessment Current Diagnosis Diabetes Other Pertinent Diagnosis DKA, rhabdomolysis, bilaterial pneumonia, hypothermia, elevated troponin Current Diet NPO Labs/Tests BUN 53 K 5.3 POC Glucose 148 Height 5 ft 9 in Weight 49.895 kg [place] Body Weight (kg) 72.72 BMI 16.2 Weight Status Underweight Subjective/Other Information RD consulted for diet education and TF. Pt has AMS and is unable to receive education at this time. Percent of energy/protein needs met: 0%/0% Burn Absent Trauma Absent #1 Nutrition Diagnosis Inadequate oral intake Etiology DKA As Evidenced by Signs and Symptoms NPO status Is patient on ventilator? No Is Patient Ambulatory and/or Out of Bed No REE-([facility]-confined to bed) 1611.588 Kcal/Kg value to use for calculation 40 Approximate Energy Requirements Using 1996 kcal/Kg Calculation Used for Recommendations Francisco Javier Choi Additional Notes Pro 60-100g (1.2-2g/kg) Fluid 1 mL/kcal Nutrition Intervention Change Diet Order: TF Nutrition Support: Glucerna 1.2 at 60 mL/hr Kcal 1,728 Protein (gm) 86 Fluid (mL) 1,159 Goal #1 TF to start Goal #2 TF tolerance Goal #3 TF to meet 100% of energy and protein needs. Anticipated Discharge Needs: Unable to determine at this time Follow-Up By: 02/16/19 Additional Comments F/U: TF to start/TF tolerance
[2019-02-16 06:48] LABS: Hemoglobin 7.1 gm/dl (11.8-15.2); Mean Corpuscular HGB Conc 31 % (32-34); Mean Corpuscular Volume 78 fl (84-94); Platelet Count 231 K/mm3 (140-440); Red Blood Count 2.97 M/mm3 (3.65-5.03)
[2019-02-16 06:58] LABS: Red Cell Distribution Width 20.4 % (13.2-15.2)
[2019-02-16 07:12] LABS: Alanine Aminotransferase 31 units/L (7-56); Albumin 2.5 g/dL (3.9-5); BUN/Creatinine Ratio 29; Blood Urea Nitrogen 23 mg/dL (9-20); Hemolysis Index 0
[2019-02-16] MEDS: HumaLOG SUB-Q SCH ×3 (07:30→16:35)
[2019-02-16] MEDS: ZOSYN/NS 3.375GM/50ML 3.375 GM/50 ML BAG IV SCH ×4 (09:39→23:12)
[2019-02-16] MEDS: COMPAZINE PO SCH ×4 (09:40→17:41)
[2019-02-16 10:09] LABS: Basophils % (Manual) 0 % (0.0-1.8); Eosinophils % (Manual) 0 % (0.0-4.3); Monocytes % (Manual) 0 % (0.0-7.3); Total Cells Counted 100
[2019-02-16 10:10] LABS: Anisocytosis 1+; Hypochromasia Few; Macrocytosis Few; Ovalocytes 1+; Poikilocytosis 1+; Schistocytes Rare
[2019-02-16 10:11] LABS: Platelet Estimate Consistent w Auto
--- NOTE | 2019-02-16 11:12 | Progress Note ---
Assessment and Plan Pt converted back to SR. Not currently a candidate for initiation of systemic AC in setting of severe anemia. Troponin elevation pattern appears c/w NSTEMI type II. Await echo. Now weaned off vasopressors. The patient has been seen in conjunction with Dr. Arabella Cornejo who agrees with the assessment and plan of care. - Patient Problems (1) NSTEMI (non-ST elevated myocardial infarction) Current Visit: Yes Status: Acute (2) Abnormal ECG Current Visit: Yes Status: Acute (3) Atrial fibrillation Current Visit: Yes Status: Acute (4) Sepsis Current Visit: Yes Status: Suspected (5) Hypotension Current Visit: Yes Status: Acute (6) DKA (diabetic ketoacidoses) Current Visit: Yes Status: Acute (7) Acute kidney injury Current Visit: Yes Status: Acute (8) Rhabdomyolysis Current Visit: Yes Status: Acute (9) Altered mental status Current Visit: Yes Status: Acute (10) Anemia Current Visit: Yes Status: Acute Subjective Date of service: 02/16/19 Principal diagnosis: DKA Interval history: pt resting in bed, no apparent distress, no current complaints. in SR on telemetry. Objective Last Vital Signs Temp 98.5 F 02/16/19 06:24 Pulse 97 H 02/16/19 06:24 Resp 26 H 02/16/19 06:24 BP 111/74 02/16/19 06:24 Pulse Ox 91 02/16/19 06:24 - Physical Examination General: No Apparent Distress Neck: Positive: neck supple Cardiac: Positive: Reg Rate and Rhythm, S1/S2 Lungs: Positive: Decreased Breath Sounds - Labs and Meds Cardiac Enzymes 02/16/19 Range/Units 06:00 AST 37 (5-40) units/L CBC 02/16/19 Range/Units 06:00 WBC 9.1 (4.5-11.0) K/mm3 RBC 2.97 L (3.65-5.03) M/mm3 Hgb 7.1 L (11.8-15.2) gm/dl Hct 23.0 L (35.5-45.6) % Plt Count 231 (140-440) K/mm3 Comprehensive Metabolic Panel 02/16/19 Range/Units 06:00 Sodium 157 H D (137-145) mmol/L Potassium 3.8 D (3.6-5.0) mmol/L Chloride 126.3 H (98-107) mmol/L Carbon Dioxide 18 L (22-30) mmol/L BUN 23 H (9-20) mg/dL Creatinine 0.8 (0.8-1.5) mg/dL Glucose 173 H (75-100) mg/dL Calcium 8.0 L D (8.4-10.2) mg/dL AST 37 (5-40) units/L ALT 31 (7-56) units/L Alkaline Phosphatase 85 (35-129) units/L Total Protein 5.2 L (6.3-8.2) g/dL Albumin 2.5 L (3.9-5) g/dL - Imaging and Cardiology EKG: report reviewed, image reviewed Echo: pending
[2019-02-16] MEDS ORDERED: SIMPLE SYRUP FEEDTUBE PRN ×2 (13:11)
[2019-02-16] MEDS ORDERED: PANCREAZE DR 10,500 UNIT FEEDTUBE PRN (13:11)
[2019-02-16] MEDS ORDERED: SODIUM BICARBONATE FEEDTUBE PRN (13:11)
[2019-02-16] MEDS: HEPARIN SUB-Q SCH ×3 (13:21→23:11)
[2019-02-16] MEDS: ASPIRIN PO SCH (13:21)
[2019-02-16] MEDS: SYNTHROID PO SCH (13:21)
[2019-02-16] MEDS: NACL 0.45% 1000 ML 1,000 ML IV SCH (13:24)
--- NOTE | 2019-02-16 14:22 | Progress Note ---
Assessment and Plan 53 y/o male admitted with altered mental state, found to be in DKA, resolved but still hypotensive 1. Stable from a critical care standpoint. 2. Will sign off Subjective Date of service: 02/16/19 Principal diagnosis: DKA Interval history: Weaned off pressors and transferred to the floor. Patient off oxygen and stable. Objective - Constitutional Vitals: Vital Signs - 12hr 02/16/19 02/16/19 06:24 11:33 Temperature 98.5 F 98.8 F Pulse Rate 97 H 104 H Respiratory 26 H 28 H Rate Blood Pressure 111/74 124/85 O2 Sat by Pulse 91 92 Oximetry - Labs CBC & Chem 7: 02/16/19 06:00 02/16/19 06:00 Labs: Abnormal lab results 02/15/19 02/15/19 02/15/19 Range/Units 14:17 16:45 19:35 RBC (3.65-5.03) M/mm3 Hgb (11.8-15.2) gm/dl Hct (35.5-45.6) % MCV (84-94) fl MCH (28-32) pg MCHC (32-34) % RDW (13.2-15.2) % Seg Neuts % (Manual) (40.0-70.0) % Lymphocytes % (Manual) (13.4-35.0) % Seg Neutrophils # Man (1.8-7.7) K/mm3 Lymphocytes # (Manual) (1.2-5.4) K/mm3 Sodium (137-145) mmol/L Chloride (98-107) mmol/L Carbon Dioxide (22-30) mmol/L BUN (9-20) mg/dL Glucose (75-100) mg/dL POC Glucose 151 H 164 H (70-105) Hemoglobin A1c (4-6) % Calcium (8.4-10.2) mg/dL Phosphorus (2.5-4.5) mg/dL Total Protein (6.3-8.2) g/dL Albumin (3.9-5) g/dL TSH 5.530 H (0.270-4.200) mlU/mL 02/15/19 02/16/19 02/16/19 Range/Units 21:30 06:00 06:00 RBC 2.97 L (3.65-5.03) M/mm3 Hgb 7.1 L (11.8-15.2) gm/dl Hct 23.0 L (35.5-45.6) % MCV 78 L (84-94) fl MCH 24 L (28-32) pg MCHC 31 L (32-34) % RDW 20.4 H (13.2-15.2) % Seg Neuts % (Manual) 97.0 H (40.0-70.0) % Lymphocytes % (Manual) 3.0 L (13.4-35.0) % Seg Neutrophils # Man 8.8 H (1.8-7.7) K/mm3 Lymphocytes # (Manual) 0.3 L (1.2-5.4) K/mm3 Sodium 157 H D (137-145) mmol/L Chloride 126.3 H (98-107) mmol/L Carbon Dioxide 18 L (22-30) mmol/L BUN 23 H (9-20) mg/dL Glucose 173 H (75-100) mg/dL POC Glucose 197 H (70-105) Hemoglobin A1c (4-6) % Calcium 8.0 L D (8.4-10.2) mg/dL Phosphorus 1.60 L D (2.5-4.5) mg/dL Total Protein 5.2 L (6.3-8.2) g/dL Albumin 2.5 L (3.9-5) g/dL TSH (0.270-4.200) mlU/mL 02/16/19 02/16/19 02/16/19 Range/Units 06:00 06:26 11:06 RBC (3.65-5.03) M/mm3 Hgb (11.8-15.2) gm/dl Hct (35.5-45.6) % MCV (84-94) fl MCH (28-32) pg MCHC (32-34) % RDW (13.2-15.2) % Seg Neuts % (Manual) (40.0-70.0) % Lymphocytes % (Manual) (13.4-35.0) % Seg Neutrophils # Man (1.8-7.7) K/mm3 Lymphocytes # (Manual) (1.2-5.4) K/mm3 Sodium (137-145) mmol/L Chloride (98-107) mmol/L Carbon Dioxide (22-30) mmol/L BUN (9-20) mg/dL Glucose (75-100) mg/dL POC Glucose 183 H 196 H (70-105) Hemoglobin A1c 10.9 H (4-6) % Calcium (8.4-10.2) mg/dL Phosphorus (2.5-4.5) mg/dL Total Protein (6.3-8.2) g/dL Albumin (3.9-5) g/dL TSH (0.270-4.200) mlU/mL Medications & Allergies - Medications Allergies/Adverse Reactions: Allergies butorphanol tartrate [From Stadol] Adverse Reaction (Verified 02/14/19 11:42) Unknown codeine Adverse Reaction (Verified 02/14/19 11:42) Unknown diazepam [From Valium] Adverse Reaction (Verified 02/14/19 11:42) Unknown iodine Adverse Reaction (Verified 02/14/19 11:42) Unknown phenobarbital Adverse Reaction (Verified 02/14/19 11:42) Unknown phenytoin sodium [From Dilantin] Adverse Reaction (Verified 02/14/19 11:42) Unknown phenytoin sodium extended [From Dilantin] Adverse Reaction (Verified 02/14/19 11:42) Unknown prednisone Adverse Reaction (Verified 02/14/19 11:42) Unknown sulfasalazine [From Azulfidine] Adverse Reaction (Verified 02/14/19 11:42) Unknown Home Medications: Home Medications Medication Instructions Recorded Confirmed Last Taken Type Insulin Glargine,Hum.rec.anlog 44 unit SQ QHS 02/14/19 02/14/19 Unknown History [Lantus Solostar] Levothyroxine [Synthroid] 25 mcg PO QAM 02/14/19 02/14/19 Unknown History Prochlorperazine [Compazine] 10 mg PO Q6HR 02/14/19 02/14/19 Unknown History Active Medications: Generic Name Dose Route Start Last Admin Trade Name Freq PRN Reason Stop Dose Admin Acetaminophen 650 mg 02/13/19 22:08 Tylenol PO Q4H PRN Fever >101 Lipase/Protease/Amylase 1 each 02/14/19 12:59 Pancreaze 10,500 Unit FEEDTUBE PRN PRN For Clogged Feeding Tube Aspirin 325 mg 02/14/19 12:00 02/16/19 13:21 Aspirin PO 325 mg QDAY THANIA Administration Dextrose 0 ml 02/13/19 22:03 D50w (25gm) Syringe IV PRN PRN Hypoglycemia Heparin Sodium (Porcine) 5,000 unit 02/13/19 22:00 02/16/19 13:22 Heparin SUB-Q 5,000 unit Q12HR THANIA Administration Norepinephrine 4 mg in 250 mls @ 7.5 mls/hr 02/15/19 07:00 02/15/19 14:34 Levophed Drip 4 Mg/Ns 250 Ml IV 2 mcg/min TITR THANIA 7.5 mls/hr Titration Protocol 2 MCG/MIN Piperacillin Sod/Tazobactam Sod 3.375 gm in 50 mls @ 100 mls/hr 02/15/19 15:00 02/16/19 09:41 Zosyn/Ns 3.375gm/50ml IV 100 mls/hr Q8HR THANIA Administration Protocol Sodium Chloride 1,000 mls @ 75 mls/hr 02/16/19 14:00 02/16/19 13:24 Nacl 0.45% 1000 Ml IV 75 mls/hr DIRECT THANIA Administration Insulin Human Isoph/Insulin Regular 10 unit 02/15/19 08:00 02/16/19 07:30 Humulin 70/30 SUB-Q 10 unit BIDDIAB THANIA Administration Insulin Human Lispro 0 unit 02/14/19 14:00 02/16/19 09:24 Humalog SUB-Q Not Given Q6H THANIA Protocol Levothyroxine Sodium 25 mcg 02/15/19 10:00 02/16/19 13:21 Synthroid PO 25 mcg QAM THANIA Administration Ondansetron HCl 4 mg 02/13/19 22:07 Zofran IV Q8H PRN Nausea And Vomiting Prochlorperazine Maleate 10 mg 02/14/19 18:00 02/16/19 13:24 Compazine PO 10 mg Q6HR THANIA Administration Simple Syrup 15 ml 02/14/19 12:59 Simple Syrup FEEDTUBE PRN PRN Hypoglycemia Simple Syrup 30 ml 02/14/19 12:59 Simple Syrup FEEDTUBE PRN PRN Hypoglycemia Simple Syrup 30 ml 02/15/19 11:27 Simple Syrup FEEDTUBE PRN PRN Hypoglycemia Sodium Bicarbonate 325 mg 02/14/19 12:59 Sodium Bicarbonate FEEDTUBE PRN PRN For Clogged Feeding Tube
--- NOTE | 2019-02-16 17:10 | Progress Note ---
Assessment and Plan - Patient Problems (1) Acute kidney failure with tubular necrosis Current Visit: Yes Status: Acute Plan to address problem: suspect CHASE due to pre-renal azotemia in the setting of DKA/septic shock and decreased renal perfusion. renal function improved with glucose control s/p IVF. Pt is now developing worsening hypernatremia, cont free water flushes via PEG to 250 q4hr, added IV 1/2 NS at 75ml/hr. avoid nephrotoxins, NSAIDs IV contrast. Will monitor lytes/renal parameters closely and make further recommendations. (2) DKA (diabetic ketoacidoses) Current Visit: Yes Status: Acute Plan to address problem: glucose control as per primary attending (3) Pneumonia Current Visit: Yes Status: Acute Plan to address problem: cont ABX treatment with zosyn (4) Rhabdomyolysis Current Visit: Yes Status: Acute Plan to address problem: CPK level trending down. (5) Hypernatremia Current Visit: Yes Status: Acute Plan to address problem: cont free water flushes via PEG 250cc q4hr, start IV 1/2 NS at 75ml/hr Subjective Date of service: 02/16/19 Principal diagnosis: DKA Interval history: Pt awake, alert, in NAD, communicating in writing. Objective - Vital Signs Vital signs: Vital Signs - 12hr 02/16/19 02/16/19 06:24 11:33 Temperature 98.5 F 98.8 F Pulse Rate 97 H 104 H Respiratory 26 H 28 H Rate Blood Pressure 111/74 124/85 O2 Sat by Pulse 91 92 Oximetry - General Appearance General appearance: appears stated age, chronically ill, frail EENT: ATNC, PERRL, mucous membranes dry Neck: no JVD Respiratory: Present: Clear to Ascultation Cardiology: regular, S1S2 Gastrointestinal: normoactive bowel sounds Integumentary: no rash, other (+ edema b/l LE ) Neurologic: no focal deficit, alert and oriented x3, strength 5/5, CN 3-12 intact Psychiatric: mood/affect appropriate, cooperative - Lab 02/16/19 06:00 02/16/19 06:00 Most recent lab results Calcium 8.0 mg/dL (8.4-10.2) L D 02/16/19 06:00 Phosphorus 1.60 mg/dL (2.5-4.5) L D 02/16/19 06:00 Magnesium 2.10 mg/dL (1.7-2.3) 02/16/19 06:00 Medications & Allergies - Medications Allergies/Adverse Reactions: Allergies butorphanol tartrate [From Stadol] Adverse Reaction (Verified 02/14/19 11:42) Unknown codeine Adverse Reaction (Verified 02/14/19 11:42) Unknown diazepam [From Valium] Adverse Reaction (Verified 02/14/19 11:42) Unknown iodine Adverse Reaction (Verified 02/14/19 11:42) Unknown phenobarbital Adverse Reaction (Verified 02/14/19 11:42) Unknown phenytoin sodium [From Dilantin] Adverse Reaction (Verified 02/14/19 11:42) Unknown phenytoin sodium extended [From Dilantin] Adverse Reaction (Verified 02/14/19 11:42) Unknown prednisone Adverse Reaction (Verified 02/14/19 11:42) Unknown sulfasalazine [From Azulfidine] Adverse Reaction (Verified 02/14/19 11:42) Unknown Home Medications: Home Medications Medication Instructions Recorded Confirmed Last Taken Type Insulin Glargine,Hum.rec.anlog 44 unit SQ QHS 02/14/19 02/14/19 Unknown History [Lantus Solostar] Levothyroxine [Synthroid] 25 mcg PO QAM 02/14/19 02/14/19 Unknown History Prochlorperazine [Compazine] 10 mg PO Q6HR 02/14/19 02/14/19 Unknown History Active Medications: Generic Name Dose Route Start Last Admin Trade Name Freq PRN Reason Stop Dose Admin Acetaminophen 650 mg 02/13/19 22:08 Tylenol PO Q4H PRN Fever >101 Lipase/Protease/Amylase 1 each 02/14/19 12:59 Pancreaze 10,500 Unit FEEDTUBE PRN PRN For Clogged Feeding Tube Aspirin 325 mg 02/14/19 12:00 02/16/19 13:21 Aspirin PO 325 mg QDAY THANIA Administration Dextrose 0 ml 02/13/19 22:03 D50w (25gm) Syringe IV PRN PRN Hypoglycemia Heparin Sodium (Porcine) 5,000 unit 02/13/19 22:00 02/16/19 13:22 Heparin SUB-Q 5,000 unit Q12HR THANIA Administration Norepinephrine 4 mg in 250 mls @ 7.5 mls/hr 02/15/19 07:00 02/15/19 14:34 Levophed Drip 4 Mg/Ns 250 Ml IV 2 mcg/min TITR THANIA 7.5 mls/hr Titration Protocol 2 MCG/MIN Piperacillin Sod/Tazobactam Sod 3.375 gm in 50 mls @ 100 mls/hr 02/15/19 15:00 02/16/19 09:41 Zosyn/Ns 3.375gm/50ml IV 100 mls/hr Q8HR THANIA Administration Protocol Sodium Chloride 1,000 mls @ 75 mls/hr 02/16/19 14:00 02/16/19 13:24 Nacl 0.45% 1000 Ml IV 75 mls/hr DIRECT THANIA Administration Insulin Human Isoph/Insulin Regular 10 unit 02/15/19 08:00 02/16/19 07:30 Humulin 70/30 SUB-Q 10 unit BIDDIAB THANIA Administration Insulin Human Lispro 0 unit 02/14/19 14:00 02/16/19 09:24 Humalog SUB-Q Not Given Q6H [facility] Protocol Levothyroxine Sodium 25 mcg 02/15/19 10:00 02/16/19 13:21 Synthroid PO 25 mcg QAM THANIA Administration Ondansetron HCl 4 mg 02/13/19 22:07 Zofran IV Q8H PRN Nausea And Vomiting Prochlorperazine Maleate 10 mg 02/14/19 18:00 02/16/19 13:24 Compazine PO 10 mg Q6HR THANIA Administration Simple Syrup 15 ml 02/14/19 12:59 Simple Syrup FEEDTUBE PRN PRN Hypoglycemia Simple Syrup 30 ml 02/14/19 12:59 Simple Syrup FEEDTUBE PRN PRN Hypoglycemia Simple Syrup 30 ml 02/15/19 11:27 Simple Syrup FEEDTUBE PRN PRN Hypoglycemia Sodium Bicarbonate 325 mg 02/14/19 12:59 Sodium Bicarbonate FEEDTUBE PRN PRN For Clogged Feeding Tube
[2019-02-16] MEDS ORDERED: TRIPLE ANTIBIOTIC TP ONE (18:14)
--- NOTE | 2019-02-16 19:14 | Progress Note ---
Assessment and Plan Assessment and plan: --Diabetic ketoacidosis; resolved Continue current management --Type 2 diabetes mellitus; moderate control Accu-Chek sliding scale coverage and ADA diet, Novolin 70/30 increased to 14 units twice a day Diabetic diet education, diabetic education, --Possible septic shock; off Levophed Continue IV fluids and supportive care --Leukocytosis; secondary to sepsis, Trending down follow cultures --Acute kidney injury; secondary to ATN; resolved Avoid nephrotoxins --Hypernatremia; DC normal saline, free water flushes Closely monitor electrolytes, nephrology following --Severe anemia; hemoglobin 6.9-7.1 No external evidence of bleeding, patient has history of tongue cancer Follow H&H, transfuse as needed --New onset A. fib with normal ventricular rate; not a candidate for chronic anticoagulation Secondary to severe anemia, cardiology following --Elevated troponins/non-ST elevation IA /type2 Cardiology following, follow echocardiogram --History of hypothyroidism; continue Synthroid -- Rhabdomyolysis; gentle hydration, trending down --History of tongue cancer; supportive care --Status post PEG; PEG feeds, patent. --Severe malnutrition; nutrition consult, supportive care --DVT prophylaxis; Lovenox Possible discharge in 1-2 days if stable Plan of care reviewed with the patient and his nurse History Interval history: Patient seen and examined medical records reviewed Patient feels slightly better no new complaints Blood sugars reasonable level Has elevated sodium, on free water flushes Alert awake oriented 3 Not in acute distress Vital signs noted Hospitalist Physical - Constitutional Vitals: Temp Pulse Resp BP Pulse Ox 98.8 F 104 H 28 H 124/85 92 02/16/19 11:33 02/16/19 11:33 02/16/19 11:33 02/16/19 11:33 02/16/19 11:33 General appearance: Present: no acute distress, cachectic, disheveled, other (severely malnourished) - EENT Eyes: Present: PERRL, EOM intact ENT: other (tongue cancer) - Neck Neck: Present: supple, normal ROM - Respiratory Respiratory effort: normal Respiratory: bilateral: diminished, rhonchi, negative: rales, wheezing - Cardiovascular Rhythm: regular Heart Sounds: Present: S1 & S2 - Extremities Extremities: no ischemia, No edema - Abdominal General gastrointestinal: soft, non-tender, non-distended, normal bowel sounds, other (PEG tube in place) - Integumentary Integumentary: Present: clear, warm - Psychiatric Psychiatric: appropriate mood/affect, cooperative - Neurologic Neurologic: moves all extremities Results - Labs CBC & Chem 7: 02/16/19 06:00 02/16/19 06:00 Labs: Laboratory Last Values WBC 9.1 K/mm3 (4.5-11.0) 02/16/19 06:00 RBC 2.97 M/mm3 (3.65-5.03) L 02/16/19 06:00 Hgb 7.1 gm/dl (11.8-15.2) L 02/16/19 06:00 Hct 23.0 % (35.5-45.6) L 02/16/19 06:00 MCV 78 fl (84-94) L 02/16/19 06:00 MCH 24 pg (28-32) L 02/16/19 06:00 MCHC 31 % (32-34) L 02/16/19 06:00 RDW 20.4 % (13.2-15.2) H 02/16/19 06:00 Plt Count 231 K/mm3 (140-440) 02/16/19 06:00 Add Manual Diff Complete 02/16/19 06:00 Total Counted 100 02/16/19 06:00 Seg Neutrophils % Lining Stuffer 02/16/19 06:00 Seg Neuts % (Manual) 97.0 % (40.0-70.0) H 02/16/19 06:00 Band Neutrophils % 0 % 02/16/19 06:00 Lymphocytes % (Manual) 3.0 % (13.4-35.0) L 02/16/19 06:00 Reactive Lymphs % (Man) 0 % 02/16/19 06:00 Monocytes % (Manual) 0 % (0.0-7.3) 02/16/19 06:00 Eosinophils % (Manual) 0 % (0.0-4.3) 02/16/19 06:00 Basophils % (Manual) 0 % (0.0-1.8) 02/16/19 06:00 Metamyelocytes % 0 % 02/16/19 06:00 Myelocytes % 0 % 02/16/19 06:00 Promyelocytes % 0 % 02/16/19 06:00 Blast Cells % 0 % 02/16/19 06:00 Nucleated RBC % Not Reportable 02/16/19 06:00 Seg Neutrophils # Man 8.8 K/mm3 (1.8-7.7) H 02/16/19 06:00 Band Neutrophils # 0.0 K/mm3 02/16/19 06:00 Lymphocytes # (Manual) 0.3 K/mm3 (1.2-5.4) L 02/16/19 06:00 Abs React Lymphs (Man) 0.0 K/mm3 02/16/19 06:00 Monocytes # (Manual) 0.0 K/mm3 (0.0-0.8) 02/16/19 06:00 Eosinophils # (Manual) 0.0 K/mm3 (0.0-0.4) 02/16/19 06:00 Basophils # (Manual) 0.0 K/mm3 (0.0-0.1) 02/16/19 06:00 Metamyelocytes # 0.0 K/mm3 02/16/19 06:00 Myelocytes # 0.0 K/mm3 02/16/19 06:00 Promyelocytes # 0.0 K/mm3 02/16/19 06:00 Blast Cells # 0.0 K/mm3 02/16/19 06:00 WBC Morphology Not Reportable 02/16/19 06:00 Hypersegmented Neuts Not Reportable 02/16/19 06:00 Hyposegmented Neuts Not Reportable 02/16/19 06:00 Hypogranular Neuts Not Reportable 02/16/19 06:00 Smudge Cells Not Reportable 02/16/19 06:00 Toxic Granulation Not Reportable 02/16/19 06:00 Toxic Vacuolation Not Reportable 02/16/19 06:00 Dohle Bodies Not Reportable 02/16/19 06:00 Pelger-Huet Anomaly Not Reportable 02/16/19 06:00 Kendrick Rods Not Reportable 02/16/19 06:00 Platelet Estimate Consistent w auto 02/16/19 06:00 Clumped Platelets Not Reportable 02/16/19 06:00 Plt Clumps, EDTA Not Reportable 02/16/19 06:00 Large Platelets Not Reportable 02/16/19 06:00 Giant Platelets Not Reportable 02/16/19 06:00 Platelet Satelliting Not Reportable 02/16/19 06:00 Plt Morphology Comment Not Reportable 02/16/19 06:00 RBC Morphology Not Reportable 02/16/19 06:00 Dimorphic RBCs Not Reportable 02/16/19 06:00 Polychromasia Not Reportable 02/16/19 06:00 Hypochromasia Few 02/16/19 06:00 Poikilocytosis 1+ 02/16/19 06:00 Anisocytosis 1+ 02/16/19 06:00 Microcytosis Not Reportable 02/16/19 06:00 Macrocytosis Few 02/16/19 06:00 Spherocytes Not Reportable 02/16/19 06:00 Pappenheimer Bodies Not Reportable 02/16/19 06:00 Sickle Cells Not Reportable 02/16/19 06:00 Target Cells Not Reportable 02/16/19 06:00 Tear Drop Cells Not Reportable 02/16/19 06:00 Ovalocytes 1+ 02/16/19 06:00 Helmet Cells Not Reportable 02/16/19 06:00 [place] Bodies Not Reportable 02/16/19 06:00 [place] Rings Not Reportable 02/16/19 06:00 Painter Cells Not Reportable 02/16/19 06:00 Bite Cells Not Reportable 02/16/19 06:00 Crenated Cell Not Reportable 02/16/19 06:00 Elliptocytes Rare 02/16/19 06:00 Acanthocytes (Spur) Rare 02/16/19 06:00 Rouleaux Not Reportable 02/16/19 06:00 Hemoglobin C Crystals Not Reportable 02/16/19 06:00 Schistocytes Rare 02/16/19 06:00 Malaria parasites Not Reportable 02/16/19 06:00 Ulices Bodies Not Reportable 02/16/19 06:00 Hem Pathologist Commnt No 02/16/19 06:00 PT 18.4 Sec. (12.2-14.9) H 02/13/19 19:13 INR 1.43 (0.87-1.13) H 02/13/19 19:13 APTT 44.5 Sec. (24.2-36.6) H 02/13/19 19:13 POC ABG pH 7.313 (7.35-7.45) L 02/15/19 03:24 POC ABG pO2 68 (80-105) L 02/15/19 03:24 POC ABG HCO3 9.4 (22-26 mml/L) 02/15/19 03:24 POC ABG Total CO2 10 (23-27mmol/L) 02/15/19 03:24 POC ABG O2 Sat 92 02/15/19 03:24 POC ABG Base Excess -17 ((-2) - (+3)mmol/L) 02/15/19 03:24 VBG pH 7.138 (7.320-7.420) L* 02/13/19 19:13 FiO2 21 % 02/15/19 03:24 Sodium 157 mmol/L (137-145) H D 02/16/19 06:00 Potassium 3.8 mmol/L (3.6-5.0) D 02/16/19 06:00 Chloride 126.3 mmol/L (98-107) H 02/16/19 06:00 Carbon Dioxide 18 mmol/L (22-30) L 02/16/19 06:00 Anion Gap 17 mmol/L 02/16/19 06:00 BUN 23 mg/dL (9-20) H 02/16/19 06:00 Creatinine 0.8 mg/dL (0.8-1.5) 02/16/19 06:00 Estimated GFR > 60 ml/min 02/16/19 06:00 BUN/Creatinine Ratio 29 % 02/16/19 06:00 Glucose 173 mg/dL (75-100) H 02/16/19 06:00 POC Glucose 196 (70-105) H 02/16/19 11:06 Hemoglobin A1c 10.9 % (4-6) H 02/16/19 06:00 Calcium 8.0 mg/dL (8.4-10.2) L D 02/16/19 06:00 Phosphorus 1.60 mg/dL (2.5-4.5) L D 02/16/19 06:00 Magnesium 2.10 mg/dL (1.7-2.3) 02/16/19 06:00 Total Bilirubin 0.20 mg/dL (0.1-1.2) 02/16/19 06:00 AST 37 units/L (5-40) 02/16/19 06:00 ALT 31 units/L (7-56) 02/16/19 06:00 Alkaline Phosphatase 85 units/L (35-129) 02/16/19 06:00 Total Creatine Kinase 1661 units/L (55-170) H 02/15/19 04:36 CK-MB (CK-2) 24.9 ng/mL (0.0-4.0) H 02/15/19 04:36 CK-MB (CK-2) Rel Index 1.4 (0-4) 02/15/19 04:36 Troponin T 0.205 ng/mL (0.00-0.029) H* D 02/15/19 04:36 Total Protein 5.2 g/dL (6.3-8.2) L 02/16/19 06:00 Albumin 2.5 g/dL (3.9-5) L 02/16/19 06:00 Albumin/Globulin Ratio 0.9 % 02/16/19 06:00 Triglycerides 96 mg/dL (2-149) 02/13/19 19:13 Cholesterol 138 mg/dL (50-199) 02/13/19 19:13 LDL Cholesterol Direct 94 mg/dL (50-130) 02/13/19 19:13 HDL Cholesterol 40 mg/dL (40-59) 02/13/19 19:13 Cholesterol/HDL Ratio 3.45 % 02/13/19 19:13 Lipase 17 units/L (13-60) 02/13/19 19:13 TSH 5.530 mlU/mL (0.270-4.200) H 02/15/19 16:45 Free T4 0.84 ng/dL (0.76-1.46) 02/15/19 16:45 Urine Color Yellow (Yellow) 02/13/19 23:00 Urine Turbidity Clear (Clear) 02/13/19 23:00 Urine pH 5.0 (5.0-7.0) 02/13/19 23:00 Ur Specific [place] 1.024 (1.003-1.030) 02/13/19 23:00 Urine Protein <15 mg/dl mg/dL (Negative) 02/13/19 23:00 Urine Glucose (UA) >=500 mg/dL (Negative) 02/13/19 23:00 Urine Ketones 20 mg/dL (Negative) 02/13/19 23:00 Urine Blood Mod (Negative) 02/13/19 23:00 Urine Nitrite Neg (Negative) 02/13/19 23:00 Urine Bilirubin Neg (Negative) 02/13/19 23:00 Urine Urobilinogen < 2.0 mg/dL (<2.0) 02/13/19 23:00 Ur Leukocyte Esterase Neg (Negative) 02/13/19 23:00 Urine WBC (Auto) 3.0 /HPF (0.0-6.0) 02/13/19 23:00 Urine RBC (Auto) 6.0 /HPF (0.0-6.0) 02/13/19 23:00 Active Medications - Current Medications Current Medications: Generic Name Dose Route Start Last Admin Trade Name Freq PRN Reason Stop Dose Admin Acetaminophen 650 mg 02/13/19 22:08 Tylenol PO Q4H PRN Fever >101 Lipase/Protease/Amylase 1 each 02/14/19 12:[address] 10,500 Unit FEEDTUBE PRN PRN For Clogged Feeding Tube Aspirin 325 mg 02/14/19 12:00 02/16/19 13:21 Aspirin PO 325 mg QDAY THANIA Administration Dextrose 0 ml 02/13/19 22:03 D50w (25gm) Syringe IV PRN PRN Hypoglycemia Heparin Sodium (Porcine) 5,000 unit 02/13/19 22:00 02/16/19 13:22 Heparin SUB-Q 5,000 unit Q12HR THANIA Administration Norepinephrine 4 mg in 250 mls @ 7.5 mls/hr 02/15/19 07:00 02/15/19 14:34 Levophed Drip 4 Mg/Ns 250 Ml IV 2 mcg/min TITR THANIA 7.5 mls/hr Titration Protocol 2 MCG/MIN Piperacillin Sod/Tazobactam Sod 3.375 gm in 50 mls @ 100 mls/hr 02/15/19 15:00 02/16/19 14:13 Zosyn/Ns 3.375gm/50ml IV 100 mls/hr Q8HR THANIA Administration Protocol Sodium Chloride 1,000 mls @ 75 mls/hr 02/16/19 14:00 02/16/19 13:24 Nacl 0.45% 1000 Ml IV 75 mls/hr DIRECT THANIA Administration Insulin Human Isoph/Insulin Regular 10 unit 02/15/19 08:00 02/16/19 17:40 Humulin 70/30 SUB-Q 10 unit BIDDIAB THANIA Administration Insulin Human Lispro 0 unit 02/14/19 14:00 02/16/19 16:35 Humalog SUB-Q Not Given Q6H [facility] Protocol Levothyroxine Sodium 25 mcg 02/15/19 10:00 02/16/19 13:21 Synthroid PO 25 mcg QAM THANIA Administration Ondansetron HCl 4 mg 02/13/19 22:07 Zofran IV Q8H PRN Nausea And Vomiting Prochlorperazine Maleate 10 mg 02/14/19 18:00 02/16/19 17:41 Compazine PO 10 mg Q6HR THANIA Administration Simple Syrup 15 ml 02/14/19 12:59 Simple Syrup FEEDTUBE PRN PRN Hypoglycemia Simple Syrup 30 ml 02/14/19 12:59 Simple Syrup FEEDTUBE PRN PRN Hypoglycemia Simple Syrup 30 ml 02/15/19 11:27 Simple Syrup FEEDTUBE PRN PRN Hypoglycemia Sodium Bicarbonate 325 mg 02/14/19 12:59 Sodium Bicarbonate FEEDTUBE PRN PRN For Clogged Feeding Tube Nutrition/Malnutrition Assess - Dietary Evaluation Nutrition/Malnutrition Findings: Nutrition Notes Start: 02/14/19 10:17 Freq: Status: Active Protocol: Document 02/16/19 11:09 TW (Rec: 02/16/19 11:18 TW [id number]) Co-Sign 02/16/19 11:09 LP Nutrition Notes Initial or Follow up Reassessment Current Diagnosis Diabetes Other Pertinent Diagnosis DKA, rhabdomolysis, bilaterial pneumonia, hypothermia, elevated troponin Current Diet NPO Labs/Tests Na 157 BG 196 Pertinent Medications reviewed Height 5 ft 9 in Weight 49.895 kg [place] Body Weight (kg) 72.72 BMI 16.2 Weight Status Underweight Subjective/Other Information F/U for TF tolerance. Pt TF running at goal (60mL/hr). Pt reports tolerating TF. Noted mild clavicular, orbital, and temporal wasting. Noted hair falling onto pillow indicating pro/kcal deficiency. Percent of energy/protein needs met: >75% Burn Absent Trauma Absent Minimum of two criteria Yes Body Fat Depletion Mild depletion (non-severe) Muscle Mass Mild Depletion (non-severe) Protein-Calorie Malnutrition Non-Severe #2 Nutrition Diagnosis Malnutrition Etiology inadequate oral intake As Evidenced by Signs and Symptoms BMI of 16.2, temporal, orbital , and clavicle wasting, easily pluckable hair #1 Nutrition Diagnosis Inadequate oral intake Diagnosis Progress(for reassessment Continues documentation) Is patient on ventilator? No Is Patient Ambulatory and/or Out of Bed No REE-([facility]-confined to bed) 1611.588 Kcal/Kg value to use for calculation 42 Approximate Energy Requirements Using 2096 kcal/Kg Calculation Used for Recommendations Kcal/kg Additional Notes Pro 60-75g (1.2-1.5g/kg) Fluid 1 mL/kcal Nutrition Intervention Change Diet Order: TF Nutrition Support: Glucerna 1.2 at 65 mL/hr Water flush of 100mL q4h Kcal 1,872 Protein (gm) 94 Fluid (mL) 1,256 Goal #1 Continue to meet at least 75% of kcal and pro needs via TF Anticipated Discharge Needs: Unable to determine at this time Follow-Up By: 02/23/19 Additional Comments F/U: TF tolerance
[2019-02-17] MEDS: HumaLOG SUB-Q SCH ×5 (00:02→18:40)
[2019-02-17] MEDS: COMPAZINE PO SCH ×4 (00:13→18:48)
[2019-02-17 06:00] LABS: Hematocrit 22.6 % (35.5-45.6); Hemoglobin 7.2 gm/dl (11.8-15.2); Lymphocytes # (Auto) 0.6 K/mm3 (1.2-5.4); Lymphocytes % (Auto) 6.1 % (13.4-35.0); Mean Corpuscular HGB Conc 32 % (32-34); Mean Corpuscular Volume 77 fl (84-94); Monocytes # (Auto) 0.5 K/mm3 (0.0-0.8); Monocytes % (Auto) 4.6 % (0.0-7.3); Platelet Count 192 K/mm3 (140-440); Red Blood Count 2.96 M/mm3 (3.65-5.03)
[2019-02-17 06:09] LABS: BUN/Creatinine Ratio 20; Blood Urea Nitrogen 14 mg/dL (9-20); Hemolysis Index 42
[2019-02-17] MEDS: ZOSYN/NS 3.375GM/50ML 3.375 GM/50 ML BAG IV SCH ×3 (06:24→22:04)
[2019-02-17 06:26] LABS: Red Cell Distribution Width 20.4 % (13.2-15.2)
--- NOTE | 2019-02-17 11:01 | Progress Note ---
Assessment and Plan 53yo wm: clinically vastly improved No sxs Still w ams though tte - severe cm - well-compensated recent septic shock cap dka margaret/rhabdo PAF - sr now severe anemia given mental status and severe anemia, at this point, is not a good nursing home anticoagulation candidate. start low dose bb. avoid noni for now due to recent margaret. unclear what his baseline mental status is. - Patient Problems (1) Abnormal ECG Current Visit: Yes Status: Acute (2) Acute kidney failure with tubular necrosis Current Visit: Yes Status: Acute (3) Altered mental status Current Visit: Yes Status: Acute (4) Anemia Current Visit: Yes Status: Acute (5) Atrial fibrillation Current Visit: Yes Status: Acute (6) DKA (diabetic ketoacidoses) Current Visit: Yes Status: Acute (7) Hypotension Current Visit: Yes Status: Acute (8) NSTEMI (non-ST elevated myocardial infarction) Current Visit: Yes Status: Acute (9) Pneumonia Current Visit: Yes Status: Acute (10) HTN (hypertension), benign Current Visit: No Status: Acute (11) Tobacco abuse Current Visit: No Status: Chronic (12) Ulcerative colitis Current Visit: No Status: Chronic Subjective Date of service: 02/17/19 Principal diagnosis: DKA Interval history: no complaints Objective Vital Signs Temp Pulse Resp BP BP Pulse Ox 02/17/19 06:00 98.4 F 94 H 18 137/97 98 02/17/19 05:59 98.4 F 102 H 36 H 137/95 97 02/17/19 00:00 97 02/16/19 23:22 97.9 F 107 H 30 H 137/96 88 02/16/19 22:00 107 H 02/16/19 17:09 98.1 F 97 H 24 124/87 97 02/16/19 11:33 98.8 F 104 H 28 H 124/85 92 - Physical Examination General: No Apparent Distress Neck: Positive: neck supple - Labs and Meds CBC 02/17/19 Range/Units 05:27 WBC 9.9 (4.5-11.0) K/mm3 RBC 2.96 L (3.65-5.03) M/mm3 Hgb 7.2 L (11.8-15.2) gm/dl Hct 22.6 L (35.5-45.6) % Plt Count 192 (140-440) K/mm3 Lymph # 0.6 L (1.2-5.4) K/mm3 [place] # 0.5 (0.0-0.8) K/mm3 Eos # 0.0 (0.0-0.4) K/mm3 Baso # 0.0 (0.0-0.1) K/mm3 Comprehensive Metabolic Panel 02/17/19 Range/Units 05:27 Sodium 157 H (137-145) mmol/L Potassium 3.5 L (3.6-5.0) mmol/L Chloride 122.7 H (98-107) mmol/L Carbon Dioxide 23 (22-30) mmol/L BUN 14 (9-20) mg/dL Creatinine 0.7 L (0.8-1.5) mg/dL Glucose 60 L (75-100) mg/dL Calcium 9.0 (8.4-10.2) mg/dL - Imaging and Cardiology EKG: report reviewed, image reviewed Echo: pending
[2019-02-17] MEDS: HEPARIN SUB-Q SCH ×2 (11:20→22:14)
[2019-02-17] MEDS: SYNTHROID PO SCH (11:20)
[2019-02-17] MEDS: ASPIRIN PO SCH (11:20)
--- NOTE | 2019-02-17 12:13 | Progress Note ---
Assessment and Plan Assessment and plan: --Diabetic ketoacidosis; resolved --Episode of hypoglycemia; insulin held Decrease Novolin 70/30 dose, make sure patient gets PEG feeds Closely monitor --Type 2 diabetes mellitus; moderate control Accu-Chek sliding SSC Novolin 70/30 changed 10 units units every 12 Diabetic diet education, diabetic education, --Hypernatremia; free water flushes, nephrology following --New onset A. fib with normal ventricular rate; not a candidate for chronic anticoagulation Secondary to severe anemia, cardiology following --Possible septic shock; off Levophed Continue IV fluids and supportive care --Leukocytosis; secondary to sepsis, Trending down follow cultures --Acute kidney injury; secondary to ATN; resolved Avoid nephrotoxins --Severe anemia; hemoglobin 6.9-7.1 No external evidence of bleeding, patient has history of tongue cancer Follow H&H, transfuse as needed --Elevated troponins/non-ST elevation [place] /type2 Cardiology following, follow echocardiogram --History of hypothyroidism; continue Synthroid -- Rhabdomyolysis; gentle hydration, trending down --History of tongue cancer; supportive care --Status post PEG; PEG feeds, patent. --Severe malnutrition; nutrition consult, supportive care --DVT prophylaxis; Lovenox Possible discharge in 1-2 days if stable Plan of care reviewed with the patient and his nurse History Interval history: Patient seen and examined medical records reviewed No new events reported by nursing staff Patient is alert awake oriented 3 Vital signs reviewed Hospitalist Physical - Constitutional Vitals: Temp Pulse Resp BP Pulse Ox 98.4 F 94 H 18 137/97 98 02/17/19 06:00 02/17/19 06:00 02/17/19 06:00 02/17/19 06:00 02/17/19 06:00 General appearance: Present: no acute distress, cachectic, disheveled, other (severely malnourished) - EENT Eyes: Present: PERRL, EOM intact - Neck Neck: Present: supple, normal ROM - Respiratory Respiratory effort: normal Respiratory: bilateral: diminished, negative: rales, rhonchi, wheezing - Cardiovascular Rhythm: regular Heart Sounds: Present: S1 & S2 - Extremities Extremities: no ischemia, No edema - Abdominal General gastrointestinal: soft, non-tender, non-distended, normal bowel sounds, other (PEG tube in place) - Integumentary Integumentary: Present: clear, warm - Psychiatric Psychiatric: appropriate mood/affect, cooperative - Neurologic Neurologic: CNII-XII intact, moves all extremities Results - Labs CBC & Chem 7: 02/17/19 05:27 02/17/19 05:27 Labs: Laboratory Last Values WBC 9.9 K/mm3 (4.5-11.0) 02/17/19 05:27 RBC 2.96 M/mm3 (3.65-5.03) L 02/17/19 05:27 Hgb 7.2 gm/dl (11.8-15.2) L 02/17/19 05:27 Hct 22.6 % (35.5-45.6) L 02/17/19 05:27 MCV 77 fl (84-94) L 02/17/19 05:27 MCH 24 pg (28-32) L 02/17/19 05:27 MCHC 32 % (32-34) 02/17/19 05:27 RDW 20.4 % (13.2-15.2) H 02/17/19 05:27 Plt Count 192 K/mm3 (140-440) 02/17/19 05:27 Lymph % (Auto) 6.1 % (13.4-35.0) L 02/17/19 05:27 Mcdonald % (Auto) 4.6 % (0.0-7.3) 02/17/19 05:27 Eos % (Auto) 0.0 % (0.0-4.3) 02/17/19 05:27 Baso % (Auto) 0.0 % (0.0-1.8) 02/17/19 05:27 Lymph # 0.6 K/mm3 (1.2-5.4) L 02/17/19 05:27 Mcdonald # 0.5 K/mm3 (0.0-0.8) 02/17/19 05:27 Eos # 0.0 K/mm3 (0.0-0.4) 02/17/19 05:27 Baso # 0.0 K/mm3 (0.0-0.1) 02/17/19 05:27 Add Manual Diff Complete 02/16/19 06:00 Total Counted 100 02/16/19 06:00 Seg Neutrophils % 89.3 % (40.0-70.0) H 02/17/19 05:27 Seg Neuts % (Manual) 97.0 % (40.0-70.0) H 02/16/19 06:00 Band Neutrophils % 0 % 02/16/19 06:00 Lymphocytes % (Manual) 3.0 % (13.4-35.0) L 02/16/19 06:00 Reactive Lymphs % (Man) 0 % 02/16/19 06:00 Monocytes % (Manual) 0 % (0.0-7.3) 02/16/19 06:00 Eosinophils % (Manual) 0 % (0.0-4.3) 02/16/19 06:00 Basophils % (Manual) 0 % (0.0-1.8) 02/16/19 06:00 Metamyelocytes % 0 % 02/16/19 06:00 Myelocytes % 0 % 02/16/19 06:00 Promyelocytes % 0 % 02/16/19 06:00 Blast Cells % 0 % 02/16/19 06:00 Nucleated RBC % Not Reportable 02/16/19 06:00 Seg Neutrophils # 8.8 K/mm3 (1.8-7.7) H 02/17/19 05:27 Seg Neutrophils # Man 8.8 K/mm3 (1.8-7.7) H 02/16/19 06:00 Band Neutrophils # 0.0 K/mm3 02/16/19 06:00 Lymphocytes # (Manual) 0.3 K/mm3 (1.2-5.4) L 02/16/19 06:00 Abs React Lymphs (Man) 0.0 K/mm3 02/16/19 06:00 Monocytes # (Manual) 0.0 K/mm3 (0.0-0.8) 02/16/19 06:00 Eosinophils # (Manual) 0.0 K/mm3 (0.0-0.4) 02/16/19 06:00 Basophils # (Manual) 0.0 K/mm3 (0.0-0.1) 02/16/19 06:00 Metamyelocytes # 0.0 K/mm3 02/16/19 06:00 Myelocytes # 0.0 K/mm3 02/16/19 06:00 Promyelocytes # 0.0 K/mm3 02/16/19 06:00 Blast Cells # 0.0 K/mm3 02/16/19 06:00 WBC Morphology Not Reportable 02/16/19 06:00 Hypersegmented Neuts Not Reportable 02/16/19 06:00 Hyposegmented Neuts Not Reportable 02/16/19 06:00 Hypogranular Neuts Not Reportable 02/16/19 06:00 Smudge Cells Not Reportable 02/16/19 06:00 Toxic Granulation Not Reportable 02/16/19 06:00 Toxic Vacuolation Not Reportable 02/16/19 06:00 Dohle Bodies Not Reportable 02/16/19 06:00 Pelger-Huet Anomaly Not Reportable 02/16/19 06:00 Kendrick Rods Not Reportable 02/16/19 06:00 Platelet Estimate Consistent w auto 02/16/19 06:00 Clumped Platelets Not Reportable 02/16/19 06:00 Plt Clumps, EDTA Not Reportable 02/16/19 06:00 Large Platelets Not Reportable 02/16/19 06:00 Giant Platelets Not Reportable 02/16/19 06:00 Platelet Satelliting Not Reportable 02/16/19 06:00 Plt Morphology Comment Not Reportable 02/16/19 06:00 RBC Morphology Not Reportable 02/16/19 06:00 Dimorphic RBCs Not Reportable 02/16/19 06:00 Polychromasia Not Reportable 02/16/19 06:00 Hypochromasia Few 02/16/19 06:00 Poikilocytosis 1+ 02/16/19 06:00 Anisocytosis 1+ 02/16/19 06:00 Microcytosis Not Reportable 02/16/19 06:00 Macrocytosis Few 02/16/19 06:00 Spherocytes Not Reportable 02/16/19 06:00 Pappenheimer Bodies Not Reportable 02/16/19 06:00 Sickle Cells Not Reportable 02/16/19 06:00 Target Cells Not Reportable 02/16/19 06:00 Tear Drop Cells Not Reportable 02/16/19 06:00 Ovalocytes 1+ 02/16/19 06:00 Helmet Cells Not Reportable 02/16/19 06:00 Jose-Gattman Bodies Not Reportable 02/16/19 06:00 Devers Rings Not Reportable 02/16/19 06:00 [place] Cells Not Reportable 02/16/19 06:00 Bite Cells Not Reportable 02/16/19 06:00 Crenated Cell Not Reportable 02/16/19 06:00 Elliptocytes Rare 02/16/19 06:00 Acanthocytes (Spur) Rare 02/16/19 06:00 Rouleaux Not Reportable 02/16/19 06:00 Hemoglobin C Crystals Not Reportable 02/16/19 06:00 Schistocytes Rare 02/16/19 06:00 Malaria parasites Not Reportable 02/16/19 06:00 Ulices Bodies Not Reportable 02/16/19 06:00 Hem Pathologist Commnt No 02/16/19 06:00 PT 18.4 Sec. (12.2-14.9) H 02/13/19 19:13 INR 1.43 (0.87-1.13) H 02/13/19 19:13 APTT 44.5 Sec. (24.2-36.6) H 02/13/19 19:13 POC ABG pH 7.313 (7.35-7.45) L 02/15/19 03:24 POC ABG pO2 68 (80-105) L 02/15/19 03:24 POC ABG HCO3 9.4 (22-26 mml/L) 02/15/19 03:24 POC ABG Total CO2 10 (23-27mmol/L) 02/15/19 03:24 POC ABG O2 Sat 92 02/15/19 03:24 POC ABG Base Excess -17 ((-2) - (+3)mmol/L) 02/15/19 03:24 VBG pH 7.138 (7.320-7.420) L* 02/13/19 19:13 FiO2 21 % 02/15/19 03:24 Sodium 157 mmol/L (137-145) H 02/17/19 05:27 Potassium 3.5 mmol/L (3.6-5.0) L 02/17/19 05:27 Chloride 122.7 mmol/L (98-107) H 02/17/19 05:27 Carbon Dioxide 23 mmol/L (22-30) 02/17/19 05:27 Anion Gap 15 mmol/L 02/17/19 05:27 BUN 14 mg/dL (9-20) 02/17/19 05:27 Creatinine 0.7 mg/dL (0.8-1.5) L 02/17/19 05:27 Estimated GFR > 60 ml/min 02/17/19 05:27 BUN/Creatinine Ratio 20 % 02/17/19 05:27 Glucose 60 mg/dL (75-100) L 02/17/19 05:27 POC Glucose 224 (70-105) H 02/17/19 11:51 Hemoglobin A1c 10.9 % (4-6) H 02/16/19 06:00 Calcium 9.0 mg/dL (8.4-10.2) 02/17/19 05:27 Phosphorus 1.60 mg/dL (2.5-4.5) L D 02/16/19 06:00 Magnesium 2.10 mg/dL (1.7-2.3) 02/16/19 06:00 Total Bilirubin 0.20 mg/dL (0.1-1.2) 02/16/19 06:00 AST 37 units/L (5-40) 02/16/19 06:00 ALT 31 units/L (7-56) 02/16/19 06:00 Alkaline Phosphatase 85 units/L (35-129) 02/16/19 06:00 Total Creatine Kinase 1661 units/L (55-170) H 02/15/19 04:36 CK-MB (CK-2) 24.9 ng/mL (0.0-4.0) H 02/15/19 04:36 CK-MB (CK-2) Rel Index 1.4 (0-4) 02/15/19 04:36 Troponin T 0.205 ng/mL (0.00-0.029) H* D 02/15/19 04:36 Total Protein 5.2 g/dL (6.3-8.2) L 02/16/19 06:00 Albumin 2.5 g/dL (3.9-5) L 02/16/19 06:00 Albumin/Globulin Ratio 0.9 % 02/16/19 06:00 Triglycerides 96 mg/dL (2-149) 02/13/19 19:13 Cholesterol 138 mg/dL (50-199) 02/13/19 19:13 LDL Cholesterol Direct 94 mg/dL (50-130) 02/13/19 19:13 HDL Cholesterol 40 mg/dL (40-59) 02/13/19 19:13 Cholesterol/HDL Ratio 3.45 % 02/13/19 19:13 Lipase 17 units/L (13-60) 02/13/19 19:13 TSH 5.530 mlU/mL (0.270-4.200) H 02/15/19 16:45 Free T4 0.84 ng/dL (0.76-1.46) 02/15/19 16:45 Urine Color Yellow (Yellow) 02/13/19 23:00 Urine Turbidity Clear (Clear) 02/13/19 23:00 Urine pH 5.0 (5.0-7.0) 02/13/19 23:00 Ur Specific Ecru 1.024 (1.003-1.030) 02/13/19 23:00 Urine Protein <15 mg/dl mg/dL (Negative) 02/13/19 23:00 Urine Glucose (UA) >=500 mg/dL (Negative) 02/13/19 23:00 Urine Ketones 20 mg/dL (Negative) 02/13/19 23:00 Urine Blood Mod (Negative) 02/13/19 23:00 Urine Nitrite Neg (Negative) 02/13/19 23:00 Urine Bilirubin Neg (Negative) 02/13/19 23:00 Urine Urobilinogen < 2.0 mg/dL (<2.0) 02/13/19 23:00 Ur Leukocyte Esterase Neg (Negative) 02/13/19 23:00 Urine WBC (Auto) 3.0 /HPF (0.0-6.0) 02/13/19 23:00 Urine RBC (Auto) 6.0 /HPF (0.0-6.0) 02/13/19 23:00 Active Medications - Current Medications Current Medications: Generic Name Dose Route Start Last Admin Trade Name Freq PRN Reason Stop Dose Admin Acetaminophen 650 mg 02/13/19 22:08 Tylenol PO Q4H PRN Fever >101 Lipase/Protease/Amylase 1 each 02/14/19 12:59 Pancreaze 10,500 Unit FEEDTUBE PRN PRN For Clogged Feeding Tube Aspirin 325 mg 02/14/19 12:00 02/17/19 11:20 Aspirin PO 325 mg QDAY THANIA Administration Dextrose 0 ml 02/13/19 22:03 02/17/19 07:02 D50w (25gm) Syringe IV 50 ml PRN PRN Administration Hypoglycemia Heparin Sodium (Porcine) 5,000 unit 02/13/19 22:00 02/17/19 11:20 Heparin SUB-Q 5,000 unit Q12HR THANIA Administration Norepinephrine 4 mg in 250 mls @ 7.5 mls/hr 02/15/19 07:00 02/15/19 14:34 Levophed Drip 4 Mg/Ns 250 Ml IV 2 mcg/min TITR THANIA 7.5 mls/hr Titration Protocol 2 MCG/MIN Piperacillin Sod/Tazobactam Sod 3.375 gm in 50 mls @ 100 mls/hr 02/15/19 15:00 02/17/19 07:13 Zosyn/Ns 3.375gm/50ml IV Infused Q8HR THANIA Infusion Protocol Sodium Chloride 1,000 mls @ 75 mls/hr 02/16/19 14:00 02/17/19 06:22 Nacl 0.45% 1000 Ml IV Infused DIRECT THANIA Infusion Insulin Human Isoph/Insulin Regular 14 unit 02/16/19 21:00 02/17/19 00:02 Humulin 70/30 SUB-Q 14 unit BIDDIAB THANIA Administration Insulin Human Lispro 0 unit 02/14/19 14:00 02/17/19 08:00 Humalog SUB-Q Not Given Q6H [facility] Protocol Levothyroxine Sodium 25 mcg 02/15/19 10:00 02/17/19 11:20 Synthroid PO 25 mcg QAM THANIA Administration Metoprolol Tartrate 12.5 mg 02/17/19 22:00 Lopressor PO BID THANIA Ondansetron HCl 4 mg 02/13/19 22:07 Zofran IV Q8H PRN Nausea And Vomiting Prochlorperazine Maleate 10 mg 02/14/19 18:00 02/17/19 06:24 Compazine PO 10 mg Q6HR THANIA Administration Simple Syrup 15 ml 02/14/19 12:59 Simple Syrup FEEDTUBE PRN PRN Hypoglycemia Simple Syrup 30 ml 02/15/19 11:27 Simple Syrup FEEDTUBE PRN PRN Hypoglycemia Sodium Bicarbonate 325 mg 02/14/19 12:59 Sodium Bicarbonate FEEDTUBE PRN PRN For Clogged Feeding Tube Nutrition/Malnutrition Assess - Dietary Evaluation Nutrition/Malnutrition Findings: Nutrition Notes Start: 02/14/19 10: 17 Freq: Status: Active Protocol: Document 02/16/19 11:09 TW (Rec: 02/16/19 11:18 TW [id number]) Co-Sign 02/16/19 11:09 LP Nutrition Notes Initial or Follow up Reassessment Current Diagnosis Diabetes Other Pertinent Diagnosis DKA, rhabdomolysis, bilaterial pneumonia, hypothermia, elevated troponin Current Diet NPO Labs/Tests Na 157 BG 196 Pertinent Medications reviewed Height 5 ft 9 in Weight 49.895 kg [place] Body Weight (kg) 72.72 BMI 16.2 Weight Status Underweight Subjective/Other Information F/U for TF tolerance. Pt TF running at goal (60mL/hr). Pt reports tolerating TF. Noted mild clavicular, orbital, and temporal wasting. Noted hair falling onto pillow indicating pro/kcal deficiency. Percent of energy/protein needs met: >75% Burn Absent Trauma Absent Minimum of two criteria Yes Body Fat Depletion Mild depletion (non-severe) Muscle Mass Mild Depletion (non-severe) Protein-Calorie Malnutrition Non-Severe #2 Nutrition Diagnosis Malnutrition Etiology inadequate oral intake As Evidenced by Signs and Symptoms BMI of 16.2, temporal, orbital , and clavicle wasting, easily pluckable hair #1 Nutrition Diagnosis Inadequate oral intake Diagnosis Progress(for reassessment Continues documentation) Is patient on ventilator? No Is Patient Ambulatory and/or Out of Bed No REE-([facility]-confined to bed) 1611.588 Kcal/Kg value to use for calculation 42 Approximate Energy Requirements Using 2096 kcal/Kg Calculation Used for Recommendations Kcal/kg Additional Notes Pro 60-75g (1.2-1.5g/kg) Fluid 1 mL/kcal Nutrition Intervention Change Diet Order: TF Nutrition Support: Glucerna 1.2 at 65 mL/hr Water flush of 100mL q4h Kcal 1,872 Protein (gm) 94 Fluid (mL) 1,256 Goal #1 Continue to meet at least 75% of kcal and pro needs via TF Anticipated Discharge Needs: Unable to determine at this time Follow-Up By: 02/23/19 Additional Comments F/U: TF tolerance
--- NOTE | 2019-02-17 16:48 | Progress Note ---
Assessment and Plan - Patient Problems (1) Acute kidney failure with tubular necrosis Current Visit: Yes Status: Acute Plan to address problem: suspect CHASE due to pre-renal azotemia in the setting of DKA/septic shock and decreased renal perfusion. renal function improved with glucose control s/p IVF. Pt is now developing worsening hypernatremia, cont free water flushes via PEG to 250 q4hr, increased IV 1/2 NS to 125ml/hr. avoid nephrotoxins, NSAIDs IV contrast. Will monitor lytes/renal parameters closely and make further recommendations. (2) DKA (diabetic ketoacidoses) Current Visit: Yes Status: Acute Plan to address problem: glucose control as per primary attending (3) Pneumonia Current Visit: Yes Status: Acute Plan to address problem: cont ABX treatment with zosyn (4) Rhabdomyolysis Current Visit: Yes Status: Acute Plan to address problem: CPK level trending down. (5) Hypernatremia Current Visit: Yes Status: Acute Plan to address problem: cont free water flushes via PEG 250cc q4hr, increase IV 1/2 NS to 125ml/hr Subjective Date of service: 02/17/19 Principal diagnosis: DKA Interval history: Pt awake, alert, in NAD, communicating in writing . Objective - Vital Signs Vital signs: Vital Signs - 12hr 02/17/19 02/17/19 02/17/19 05:59 06:00 12:58 Temperature 98.4 F 98.4 F 97.8 F Pulse Rate 102 H 94 H 97 H Respiratory 36 H 18 18 Rate Blood Pressure 137/95 129/79 Blood Pressure 137/97 [Left] O2 Sat by Pulse 97 98 97 Oximetry - General Appearance General appearance: well-developed, well-nourished, appears stated age EENT: ATNC, PERRL, mucous membranes dry Neck: no JVD Respiratory: Present: Clear to Ascultation Cardiology: regular, S1S2 Gastrointestinal: normoactive bowel sounds Integumentary: no rash, other Neurologic: no focal deficit, alert and oriented x3, strength 5/5, CN 3-12 intact Psychiatric: mood/affect appropriate, cooperative - Lab 02/17/19 05:27 02/17/19 05:27 Most recent lab results Calcium 9.0 mg/dL (8.4-10.2) 02/17/19 05:27 Phosphorus 1.60 mg/dL (2.5-4.5) L D 02/16/19 06:00 Magnesium 2.10 mg/dL (1.7-2.3) 02/16/19 06:00 Medications & Allergies - Medications Allergies/Adverse Reactions: Allergies butorphanol tartrate [From Stadol] Adverse Reaction (Verified 02/14/19 11:42) Unknown codeine Adverse Reaction (Verified 02/14/19 11:42) Unknown diazepam [From Valium] Adverse Reaction (Verified 02/14/19 11:42) Unknown iodine Adverse Reaction (Verified 02/14/19 11:42) Unknown phenobarbital Adverse Reaction (Verified 02/14/19 11:42) Unknown phenytoin sodium [From Dilantin] Adverse Reaction (Verified 02/14/19 11:42) Unknown phenytoin sodium extended [From Dilantin] Adverse Reaction (Verified 02/14/19 11:42) Unknown prednisone Adverse Reaction (Verified 02/14/19 11:42) Unknown sulfasalazine [From Azulfidine] Adverse Reaction (Verified 02/14/19 11:42) Unknown Home Medications: Home Medications Medication Instructions Recorded Confirmed Last Taken Type Insulin Glargine,Hum.rec.anlog 44 unit SQ QHS 02/14/19 02/14/19 Unknown History [Lantus Solostar] Levothyroxine [Synthroid] 25 mcg PO QAM 02/14/19 02/14/19 Unknown History Prochlorperazine [Compazine] 10 mg PO Q6HR 02/14/19 02/14/19 Unknown History Active Medications: Generic Name Dose Route Start Last Admin Trade Name Freq PRN Reason Stop Dose Admin Acetaminophen 650 mg 02/13/19 22:08 Tylenol PO Q4H PRN Fever >101 Lipase/Protease/Amylase 1 each 02/14/19 12:59 Pancreaze 10,500 Unit FEEDTUBE PRN PRN For Clogged Feeding Tube Aspirin 325 mg 02/14/19 12:00 02/17/19 11:20 Aspirin PO 325 mg QDAY THANIA Administration Dextrose 0 ml 02/13/19 22:03 02/17/19 07:02 D50w (25gm) Syringe IV 50 ml PRN PRN Administration Hypoglycemia Heparin Sodium (Porcine) 5,000 unit 02/13/19 22:00 02/17/19 11:20 Heparin SUB-Q 5,000 unit Q12HR THANIA Administration Norepinephrine 4 mg in 250 mls @ 7.5 mls/hr 02/15/19 07:00 02/15/19 14:34 Levophed Drip 4 Mg/Ns 250 Ml IV 2 mcg/min TITR THANIA 7.5 mls/hr Titration Protocol 2 MCG/MIN Piperacillin Sod/Tazobactam Sod 3.375 gm in 50 mls @ 100 mls/hr 02/15/19 15:00 02/17/19 07:13 Zosyn/Ns 3.375gm/50ml IV Infused Q8HR THANIA Infusion Protocol Sodium Chloride 1,000 mls @ 125 mls/hr 02/16/19 14:00 02/17/19 06:22 Nacl 0.45% 1000 Ml IV Infused DIRECT THANIA Infusion Insulin Human Isoph/Insulin Regular 14 unit 02/16/19 21:00 02/17/19 12:30 Humulin 70/30 SUB-Q 14 unit BIDDIAB THANIA Administration Insulin Human Lispro 0 unit 02/17/19 12:30 02/17/19 12:29 Humalog SUB-Q 3 unit Q6HR THANIA Administration Protocol Levothyroxine Sodium 25 mcg 02/15/19 10:00 02/17/19 11:20 Synthroid PO 25 mcg QAM THANIA Administration Metoprolol Tartrate 12.5 mg 02/17/19 22:00 Lopressor PO BID THANIA Ondansetron HCl 4 mg 02/13/19 22:07 Zofran IV Q8H PRN Nausea And Vomiting Prochlorperazine Maleate 10 mg 02/14/19 18:00 02/17/19 12:31 Compazine PO Not Given Q6HR THANIA Simple Syrup 15 ml 02/14/19 12:59 Simple Syrup FEEDTUBE PRN PRN Hypoglycemia Simple Syrup 30 ml 02/15/19 11:27 Simple Syrup FEEDTUBE PRN PRN Hypoglycemia Sodium Bicarbonate 325 mg 02/14/19 12:59 Sodium Bicarbonate FEEDTUBE PRN PRN For Clogged Feeding Tube
[2019-02-17] MEDS: LOPRESSOR PO SCH (22:04)
[2019-02-18] MEDS: COMPAZINE PO SCH ×4 (05:59→17:18)
[2019-02-18] MEDS: HumaLOG SUB-Q SCH ×4 (06:00→18:21)
[2019-02-18 06:36] LABS: Basophils % (Auto) 0.1 % (0.0-1.8); Eosinophils % (Auto) 0.6 % (0.0-4.3); Hematocrit 23.4 % (35.5-45.6); Hemoglobin 7.3 gm/dl (11.8-15.2); Lymphocytes # (Auto) 0.9 K/mm3 (1.2-5.4); Lymphocytes % (Auto) 16.7 % (13.4-35.0); Mean Corpuscular HGB Conc 31 % (32-34); Mean Corpuscular Volume 78 fl (84-94); Monocytes # (Auto) 0.4 K/mm3 (0.0-0.8); Monocytes % (Auto) 6.5 % (0.0-7.3); Platelet Count 166 K/mm3 (140-440); Red Blood Count 2.99 M/mm3 (3.65-5.03)
[2019-02-18 06:37] LABS: Red Cell Distribution Width 21.1 % (13.2-15.2)
[2019-02-18 07:01] LABS: Alanine Aminotransferase 26 units/L (7-56); Albumin 2.2 g/dL (3.9-5); BUN/Creatinine Ratio 18; Blood Urea Nitrogen 14 mg/dL (9-20); Calcium 9.1 mg/dL (8.4-10.2); Hemolysis Index 2
[2019-02-18] MEDS: SYNTHROID PO SCH (09:40)
[2019-02-18] MEDS: HEPARIN SUB-Q SCH ×2 (09:40→22:09)
[2019-02-18] MEDS: ASPIRIN PO SCH (09:40)
[2019-02-18] MEDS: LOPRESSOR PO SCH ×2 (09:46→22:12)
--- NOTE | 2019-02-18 09:59 | Progress Note ---
Assessment and Plan Assessment and plan: --Hypokalemia; replace per protocol --Hypernatremia; free water flushes, trending down --Diabetic ketoacidosis; resolved --Episode of hypoglycemia; insulin held Decrease Novolin 70/30 dose, make sure patient gets PEG feeds Closely monitor --Type 2 diabetes mellitus; moderate control Accu-Chek sliding SSC Novolin 70/30 changed 10 units units every 12 Diabetic diet education, diabetic education, --New onset A. fib with normal ventricular rate; not a candidate for chronic anticoagulation Secondary to severe anemia, cardiology following --Possible septic shock; off Levophed Continue IV fluids and supportive care --Leukocytosis; secondary to sepsis, Trending down follow cultures --Acute kidney injury; secondary to ATN; resolved Avoid nephrotoxins --Severe anemia; hemoglobin 6.9-7.1 No external evidence of bleeding, patient has history of tongue cancer Follow H&H, transfuse as needed --Elevated troponins/non-ST elevation [place] /type2 Cardiology following, follow echocardiogram --History of hypothyroidism; continue Synthroid -- Rhabdomyolysis; gentle hydration, trending down --History of tongue cancer; supportive care --Status post PEG; PEG feeds, patent. --Severe malnutrition; nutrition consult, supportive care --DVT prophylaxis; Lovenox Possible discharge in 1-2 days if stable Plan of care reviewed with the patient and his nurse History Interval history: Patient seen and examined medical records reviewed this morning No new events reported by the nursing Alert awake oriented Vital signs reviewed Hospitalist Physical - Constitutional Vitals: Temp Pulse Resp BP Pulse Ox 98.1 F 79 20 116/79 95 02/18/19 04:59 02/18/19 04:59 02/18/19 04:59 02/18/19 04:59 02/18/19 04:59 General appearance: Present: no acute distress, cachectic, disheveled, other (severely malnourished) - EENT Eyes: Present: PERRL, EOM intact - Neck Neck: Present: supple, normal ROM - Respiratory Respiratory effort: normal Respiratory: bilateral: diminished, negative: rales, rhonchi, wheezing - Cardiovascular Rhythm: regular Heart Sounds: Present: S1 & S2 - Extremities Extremities: no ischemia, No edema - Abdominal General gastrointestinal: soft, non-tender, normal bowel sounds (PEG in place), other - Integumentary Integumentary: Present: clear, warm - Psychiatric Psychiatric: appropriate mood/affect, cooperative - Neurologic Neurologic: moves all extremities Results - Labs CBC & Chem 7: 02/18/19 05:40 02/18/19 05:40 Labs: Laboratory Last Values WBC 5.5 K/mm3 (4.5-11.0) 02/18/19 05:40 RBC 2.99 M/mm3 (3.65-5.03) L 02/18/19 05:40 Hgb 7.3 gm/dl (11.8-15.2) L 02/18/19 05:40 Hct 23.4 % (35.5-45.6) L 02/18/19 05:40 MCV 78 fl (84-94) L 02/18/19 05:40 MCH 25 pg (28-32) L 02/18/19 05:40 MCHC 31 % (32-34) L 02/18/19 05:40 RDW 21.1 % (13.2-15.2) H 02/18/19 05:40 Plt Count 166 K/mm3 (140-440) 02/18/19 05:40 Lymph % (Auto) 16.7 % (13.4-35.0) 02/18/19 05:40 [place] % (Auto) 6.5 % (0.0-7.3) 02/18/19 05:40 Eos % (Auto) 0.6 % (0.0-4.3) 02/18/19 05:40 Baso % (Auto) 0.1 % (0.0-1.8) 02/18/19 05:40 Lymph # 0.9 K/mm3 (1.2-5.4) L 02/18/19 05:40 [place] # 0.4 K/mm3 (0.0-0.8) 02/18/19 05:40 Eos # 0.0 K/mm3 (0.0-0.4) 02/18/19 05:40 Baso # 0.0 K/mm3 (0.0-0.1) 02/18/19 05:40 Add Manual Diff Complete 02/16/19 06:00 Total Counted 100 02/16/19 06:00 Seg Neutrophils % 76.1 % (40.0-70.0) H 02/18/19 05:40 Seg Neuts % (Manual) 97.0 % (40.0-70.0) H 02/16/19 06:00 Band Neutrophils % 0 % 02/16/19 06:00 Lymphocytes % (Manual) 3.0 % (13.4-35.0) L 02/16/19 06:00 Reactive Lymphs % (Man) 0 % 02/16/19 06:00 Monocytes % (Manual) 0 % (0.0-7.3) 02/16/19 06:00 Eosinophils % (Manual) 0 % (0.0-4.3) 02/16/19 06:00 Basophils % (Manual) 0 % (0.0-1.8) 02/16/19 06:00 Metamyelocytes % 0 % 02/16/19 06:00 Myelocytes % 0 % 02/16/19 06:00 Promyelocytes % 0 % 02/16/19 06:00 Blast Cells % 0 % 02/16/19 06:00 Nucleated RBC % Not Reportable 02/16/19 06:00 Seg Neutrophils # 4.2 K/mm3 (1.8-7.7) 02/18/19 05:40 Seg Neutrophils # Man 8.8 K/mm3 (1.8-7.7) H 02/16/19 06:00 Band Neutrophils # 0.0 K/mm3 02/16/19 06:00 Lymphocytes # (Manual) 0.3 K/mm3 (1.2-5.4) L 02/16/19 06:00 Abs React Lymphs (Man) 0.0 K/mm3 02/16/19 06:00 Monocytes # (Manual) 0.0 K/mm3 (0.0-0.8) 02/16/19 06:00 Eosinophils # (Manual) 0.0 K/mm3 (0.0-0.4) 02/16/19 06:00 Basophils # (Manual) 0.0 K/mm3 (0.0-0.1) 02/16/19 06:00 Metamyelocytes # 0.0 K/mm3 02/16/19 06:00 Myelocytes # 0.0 K/mm3 02/16/19 06:00 Promyelocytes # 0.0 K/mm3 02/16/19 06:00 Blast Cells # 0.0 K/mm3 02/16/19 06:00 WBC Morphology Not Reportable 02/16/19 06:00 Hypersegmented Neuts Not Reportable 02/16/19 06:00 Hyposegmented Neuts Not Reportable 02/16/19 06:00 Hypogranular Neuts Not Reportable 02/16/19 06:00 Smudge Cells Not Reportable 02/16/19 06:00 Toxic Granulation Not Reportable 02/16/19 06:00 Toxic Vacuolation Not Reportable 02/16/19 06:00 Dohle Bodies Not Reportable 02/16/19 06:00 Pelger-Huet Anomaly Not Reportable 02/16/19 06:00 Kendrick Rods Not Reportable 02/16/19 06:00 Platelet Estimate Consistent w auto 02/16/19 06:00 Clumped Platelets Not Reportable 02/16/19 06:00 Plt Clumps, EDTA Not Reportable 02/16/19 06:00 Large Platelets Not Reportable 02/16/19 06:00 Giant Platelets Not Reportable 02/16/19 06:00 Platelet Satelliting Not Reportable 02/16/19 06:00 Plt Morphology Comment Not Reportable 02/16/19 06:00 RBC Morphology Not Reportable 02/16/19 06:00 Dimorphic RBCs Not Reportable 02/16/19 06:00 Polychromasia Not Reportable 02/16/19 06:00 Hypochromasia Few 02/16/19 06:00 Poikilocytosis 1+ 02/16/19 06:00 Anisocytosis 1+ 02/16/19 06:00 Microcytosis Not Reportable 02/16/19 06:00 Macrocytosis Few 02/16/19 06:00 Spherocytes Not Reportable 02/16/19 06:00 Pappenheimer Bodies Not Reportable 02/16/19 06:00 Sickle Cells Not Reportable 02/16/19 06:00 Target Cells Not Reportable 02/16/19 06:00 Tear Drop Cells Not Reportable 02/16/19 06:00 Ovalocytes 1+ 02/16/19 06:00 Helmet Cells Not Reportable 02/16/19 06:00 [place] Bodies Not Reportable 02/16/19 06:00 [place] Rings Not Reportable 02/16/19 06:00 Geremias Cells Not Reportable 02/16/19 06:00 Bite Cells Not Reportable 02/16/19 06:00 Crenated Cell Not Reportable 02/16/19 06:00 Elliptocytes Rare 02/16/19 06:00 Acanthocytes (Spur) Rare 02/16/19 06:00 Rouleaux Not Reportable 02/16/19 06:00 Hemoglobin C Crystals Not Reportable 02/16/19 06:00 Schistocytes Rare 02/16/19 06:00 Malaria parasites Not Reportable 02/16/19 06:00 Ulices Bodies Not Reportable 02/16/19 06:00 Hem Pathologist Commnt No 02/16/19 06:00 PT 18.4 Sec. (12.2-14.9) H 02/13/19 19:13 INR 1.43 (0.87-1.13) H 02/13/19 19:13 APTT 44.5 Sec. (24.2-36.6) H 02/13/19 19:13 POC ABG pH 7.313 (7.35-7.45) L 02/15/19 03:24 POC ABG pO2 68 (80-105) L 02/15/19 03:24 POC ABG HCO3 9.4 (22-26 mml/L) 02/15/19 03:24 POC ABG Total CO2 10 (23-27mmol/L) 02/15/19 03:24 POC ABG O2 Sat 92 02/15/19 03:24 POC ABG Base Excess -17 ((-2) - (+3)mmol/L) 02/15/19 03:24 VBG pH 7.138 (7.320-7.420) L* 02/13/19 19:13 FiO2 21 % 02/15/19 03:24 Sodium 150 mmol/L (137-145) H 02/18/19 05:40 Potassium 3.3 mmol/L (3.6-5.0) L 02/18/19 05:40 Chloride 113.4 mmol/L (98-107) H 02/18/19 05:40 Carbon Dioxide 24 mmol/L (22-30) 02/18/19 05:40 Anion Gap 16 mmol/L 02/18/19 05:40 BUN 14 mg/dL (9-20) 02/18/19 05:40 Creatinine 0.8 mg/dL (0.8-1.5) 02/18/19 05:40 Estimated GFR > 60 ml/min 02/18/19 05:40 BUN/Creatinine Ratio 18 % 02/18/19 05:40 Glucose 258 mg/dL (75-100) H 02/18/19 05:40 POC Glucose 175 (70-105) H 02/18/19 07:58 Hemoglobin A1c 10.9 % (4-6) H 02/16/19 06:00 Calcium 9.1 mg/dL (8.4-10.2) 02/18/19 05:40 Phosphorus 1.60 mg/dL (2.5-4.5) L D 02/16/19 06:00 Magnesium 2.10 mg/dL (1.7-2.3) 02/16/19 06:00 Total Bilirubin 0.30 mg/dL (0.1-1.2) 02/18/19 05:40 AST 27 units/L (5-40) 02/18/19 05:40 ALT 26 units/L (7-56) 02/18/19 05:40 Alkaline Phosphatase 76 units/L (35-129) 02/18/19 05:40 Total Creatine Kinase 1661 units/L (55-170) H 02/15/19 04:36 CK-MB (CK-2) 24.9 ng/mL (0.0-4.0) H 02/15/19 04:36 CK-MB (CK-2) Rel Index 1.4 (0-4) 02/15/19 04:36 Troponin T 0.205 ng/mL (0.00-0.029) H* D 02/15/19 04:36 Total Protein 5.2 g/dL (6.3-8.2) L 02/18/19 05:40 Albumin 2.2 g/dL (3.9-5) L 02/18/19 05:40 Albumin/Globulin Ratio 0.7 % 02/18/19 05:40 Triglycerides 96 mg/dL (2-149) 02/13/19 19:13 Cholesterol 138 mg/dL (50-199) 02/13/19 19:13 LDL Cholesterol Direct 94 mg/dL (50-130) 02/13/19 19:13 HDL Cholesterol 40 mg/dL (40-59) 02/13/19 19:13 Cholesterol/HDL Ratio 3.45 % 02/13/19 19:13 Lipase 17 units/L (13-60) 02/13/19 19:13 TSH 5.530 mlU/mL (0.270-4.200) H 02/15/19 16:45 Free T4 0.84 ng/dL (0.76-1.46) 02/15/19 16:45 Urine Color Yellow (Yellow) 02/13/19 23:00 Urine Turbidity Clear (Clear) 02/13/19 23:00 Urine pH 5.0 (5.0-7.0) 02/13/19 23:00 Ur Specific [place] 1.024 (1.003-1.030) 02/13/19 23:00 Urine Protein <15 mg/dl mg/dL (Negative) 02/13/19 23:00 Urine Glucose (UA) >=500 mg/dL (Negative) 02/13/19 23:00 Urine Ketones 20 mg/dL (Negative) 02/13/19 23:00 Urine Blood Mod (Negative) 02/13/19 23:00 Urine Nitrite Neg (Negative) 02/13/19 23:00 Urine Bilirubin Neg (Negative) 02/13/19 23:00 Urine Urobilinogen < 2.0 mg/dL (<2.0) 02/13/19 23:00 Ur Leukocyte Esterase Neg (Negative) 02/13/19 23:00 Urine WBC (Auto) 3.0 /HPF (0.0-6.0) 02/13/19 23:00 Urine RBC (Auto) 6.0 /HPF (0.0-6.0) 02/13/19 23:00 Active Medications - Current Medications Current Medications: Generic Name Dose Route Start Last Admin Trade Name Freq PRN Reason Stop Dose Admin Acetaminophen 650 mg 02/13/19 22:08 02/17/19 22:05 Tylenol PO 650 mg Q4H PRN Administration Fever >101 Lipase/Protease/Amylase 1 each 02/14/19 12:[address] 10,500 Unit FEEDTUBE PRN PRN For Clogged Feeding Tube Aspirin 325 mg 02/14/19 12:00 02/17/19 11:20 Aspirin PO 325 mg QDAY THANIA Administration Dextrose 0 ml 02/13/19 22:03 02/17/19 07:02 D50w (25gm) Syringe IV 50 ml PRN PRN Administration Hypoglycemia Heparin Sodium (Porcine) 5,000 unit 02/13/19 22:00 02/17/19 22:14 Heparin SUB-Q 5,000 unit Q12HR THANIA Administration Norepinephrine 4 mg in 250 mls @ 7.5 mls/hr 02/15/19 07:00 02/15/19 14:34 Levophed Drip 4 Mg/Ns 250 Ml IV 2 mcg/min TITR THANIA 7.5 mls/hr Titration Protocol 2 MCG/MIN Piperacillin Sod/Tazobactam Sod 3.375 gm in 50 mls @ 100 mls/hr 02/15/19 15:00 02/17/19 22:04 Zosyn/Ns 3.375gm/50ml IV 100 mls/hr Q8HR TAHNIA Administration Protocol Sodium Chloride 1,000 mls @ 125 mls/hr 02/16/19 14:00 02/17/19 06:22 Nacl 0.45% 1000 Ml IV Infused DIRECT THANIA Infusion Insulin Human Isoph/Insulin Regular 10 unit 02/17/19 19:59 02/18/19 08:46 Humulin 70/30 SUB-Q 10 unit BIDDIAB THANIA Administration Insulin Human Lispro 0 unit 02/17/19 12:30 02/18/19 06:00 Humalog SUB-Q 4 unit Q6HR THANIA Administration Protocol Levothyroxine Sodium 25 mcg 02/15/19 10:00 02/17/19 11:20 Synthroid PO 25 mcg QAM THANIA Administration Metoprolol Tartrate 12.5 mg 02/17/19 22:00 02/17/19 22:04 Lopressor PO 12.5 mg BID THANIA Administration Ondansetron HCl 4 mg 02/13/19 22:07 Zofran IV Q8H PRN Nausea And Vomiting Potassium Chloride 40 meq 02/18/19 09:56 Potassium Chloride FEEDTUBE 02/18/19 09:57 ONCE ONE Prochlorperazine Maleate 10 mg 02/14/19 18:00 02/18/19 05:59 Compazine PO 10 mg Q6HR THANIA Administration Simple Syrup 15 ml 02/14/19 12:59 Simple Syrup FEEDTUBE PRN PRN Hypoglycemia Simple Syrup 30 ml 02/15/19 11:27 Simple Syrup FEEDTUBE PRN PRN Hypoglycemia Sodium Bicarbonate 325 mg 02/14/19 12:59 Sodium Bicarbonate FEEDTUBE PRN PRN For Clogged Feeding Tube Nutrition/Malnutrition Assess - Dietary Evaluation Nutrition/Malnutrition Findings: Nutrition Notes Start: 02/14/19 10:17 Freq: Status: Active Protocol: Document 02/16/19 11:09 TW (Rec: 02/16/19 11:18 TW [id number]) Co-Sign 02/16/19 11:09 LP Nutrition Notes Initial or Follow up Reassessment Current Diagnosis Diabetes Other Pertinent Diagnosis DKA, rhabdomolysis, bilaterial pneumonia, hypothermia, elevated troponin Current Diet NPO Labs/Tests Na 157 BG 196 Pertinent Medications reviewed Height 5 ft 9 in Weight 49.895 kg [place] Body Weight (kg) 72.72 BMI 16.2 Weight Status Underweight Subjective/Other Information F/U for TF tolerance. Pt TF running at goal (60mL/hr). Pt reports tolerating TF. Noted mild clavicular, orbital, and temporal wasting. Noted hair falling onto pillow indicating pro/kcal deficiency. Percent of energy/protein needs met: >75% Burn Absent Trauma Absent Minimum of two criteria Yes Body Fat Depletion Mild depletion (non-severe) Muscle Mass Mild Depletion (non-severe) Protein-Calorie Malnutrition Non-Severe #2 Nutrition Diagnosis Malnutrition Etiology inadequate oral intake As Evidenced by Signs and Symptoms BMI of 16.2, temporal, orbital , and clavicle wasting, easily pluckable hair #1 Nutrition Diagnosis Inadequate oral intake Diagnosis Progress(for reassessment Continues documentation) Is patient on ventilator? No Is Patient Ambulatory and/or Out of Bed No REE-([facility]-confined to bed) 1611.588 Kcal/Kg value to use for calculation 42 Approximate Energy Requirements Using 2096 kcal/Kg Calculation Used for Recommendations Kcal/kg Additional Notes Pro 60-75g (1.2-1.5g/kg) Fluid 1 mL/kcal Nutrition Intervention Change Diet Order: TF Nutrition Support: Glucerna 1.2 at 65 mL/hr Water flush of 100mL q4h Kcal 1,872 Protein (gm) 94 Fluid (mL) 1,256 Goal #1 Continue to meet at least 75% of kcal and pro needs via TF Anticipated Discharge Needs: Unable to determine at this time Follow-Up By: 02/23/19 Additional Comments F/U: TF tolerance
[2019-02-18] MEDS ORDERED: POTASSIUM CHLORIDE FEEDTUBE ONE (10:00)
--- NOTE | 2019-02-18 11:23 | Progress Note ---
Assessment and Plan Patient appears to be comfortable today. Denies any chest pain. Continue monitoring in cardiac status appears to be stable. - Patient Problems (1) Abnormal ECG Current Visit: Yes Status: Acute (2) Atrial fibrillation Current Visit: Yes Status: Acute (3) NSTEMI (non-ST elevated myocardial infarction) Current Visit: Yes Status: Acute (4) CAD (coronary artery disease) Current Visit: No Status: Acute Subjective Date of service: 02/18/19 Principal diagnosis: DKA Interval history: No new cardiac symptoms. Patient is somewhat lethargic but appears to be co mfortable. Objective Vital Signs Temp Pulse Resp BP Pulse Ox 02/18/19 09:46 85 118/85 02/18/19 04:59 98.1 F 79 20 116/79 95 02/17/19 23:43 97.9 F 73 24 98/66 95 02/17/19 22:05 18 02/17/19 22:04 88 134/82 02/17/19 17:35 98.1 F 88 20 118/80 97 02/17/19 16:00 77 02/17/19 12:58 97.8 F 97 H 18 129/79 97 - Physical Examination General: No Apparent Distress Neck: Positive: neck supple Cardiac: Positive: Regular Rate Lungs: Positive: clear to auscultation Abdomen: Positive: Soft Extremities: Present: normal - Labs and Meds Cardiac Enzymes 02/18/19 Range/Units 05:40 AST 27 (5-40) units/L CBC 02/18/19 Range/Units 05:40 WBC 5.5 (4.5-11.0) K/mm3 RBC 2.99 L (3.65-5.03) M/mm3 Hgb 7.3 L (11.8-15.2) gm/dl Hct 23.4 L (35.5-45.6) % Plt Count 166 (140-440) K/mm3 Lymph # 0.9 L (1.2-5.4) K/mm3 [place] # 0.4 (0.0-0.8) K/mm3 Eos # 0.0 (0.0-0.4) K/mm3 Baso # 0.0 (0.0-0.1) K/mm3 Comprehensive Metabolic Panel 02/18/19 Range/Units 05:40 Sodium 150 H (137-145) mmol/L Potassium 3.3 L (3.6-5.0) mmol/L Chloride 113.4 H (98-107) mmol/L Carbon Dioxide 24 (22-30) mmol/L BUN 14 (9-20) mg/dL Creatinine 0.8 (0.8-1.5) mg/dL Glucose 258 H (75-100) mg/dL Calcium 9.1 (8.4-10.2) mg/dL AST 27 (5-40) units/L ALT 26 (7-56) units/L Alkaline Phosphatase 76 (35-129) units/L Total Protein 5.2 L (6.3-8.2) g/dL Albumin 2.2 L (3.9-5) g/dL - Imaging and Cardiology EKG: report reviewed, image reviewed Echo: pending
--- NOTE | 2019-02-18 12:38 | Progress Note ---
Assessment and Plan - Patient Problems (1) Acute kidney failure with tubular necrosis Current Visit: Yes Status: Acute Plan to address problem: Renal function has improved back to baseline with adequate hydration and treatment of DKA. Will continue to monitor closely. (2) Hypernatremia Current Visit: Yes Status: Acute Plan to address problem: Improving with current measures including FWF @250cc q4hrs and D51/2 NS at 125 cc/hr. Will continue to monitor. (3) Pneumonia Current Visit: Yes Status: Acute Plan to address problem: Continue current antibiotic regimen. (4) Rhabdomyolysis Current Visit: Yes Status: Acute Plan to address problem: CPK levels continue to trend down. Subjective Date of service: 02/18/19 Principal diagnosis: DKA Interval history: No acute changes at this time. Labs noted and hypernatremia levels showing slow improvement. Currently receiving FWF 250 q4hrs and D51/2 NS at 125 cc/hr. Objective - Vital Signs Vital signs: Vital Signs - 12hr 02/18/19 02/18/19 04:59 09:46 Temperature 98.1 F Pulse Rate 79 85 Respiratory 20 Rate Blood Pressure 116/79 118/85 O2 Sat by Pulse 95 Oximetry - General Appearance General appearance: chronically ill, frail EENT: ATNC Neck: no JVD Respiratory: Present: Clear to Ascultation Cardiology: regular, S1S2 Gastrointestinal: normal, normoactive bowel sounds Integumentary: no rash, warm and dry Musculoskeletal: other (-edema ) Psychiatric: cooperative - Lab 02/18/19 05:40 02/18/19 05:40 Most recent lab results Calcium 9.1 mg/dL (8.4-10.2) 02/18/19 05:40 Phosphorus 1.60 mg/dL (2.5-4.5) L D 02/16/19 06:00 Magnesium 2.10 mg/dL (1.7-2.3) 02/16/19 06:00 - Allied health notes Allied health notes reviewed: nursing Medications & Allergies - Medications Allergies/Adverse Reactions: Allergies butorphanol tartrate [From Stadol] Adverse Reaction (Verified 02/14/19 11:42) Unknown codeine Adverse Reaction (Verified 02/14/19 11:42) Unknown diazepam [From Valium] Adverse Reaction (Verified 02/14/19 11:42) Unknown iodine Adverse Reaction (Verified 02/14/19 11:42) Unknown phenobarbital Adverse Reaction (Verified 02/14/19 11:42) Unknown phenytoin sodium [From Dilantin] Adverse Reaction (Verified 02/14/19 11:42) Unknown phenytoin sodium extended [From Dilantin] Adverse Reaction (Verified 02/14/19 11:42) Unknown prednisone Adverse Reaction (Verified 02/14/19 11:42) Unknown sulfasalazine [From Azulfidine] Adverse Reaction (Verified 02/14/19 11:42) Unknown Home Medications: Home Medications Medication Instructions Recorded Confirmed Last Taken Type Insulin Glargine,Hum.rec.anlog 44 unit SQ QHS 02/14/19 02/14/19 Unknown History [Lantus Solostar] Levothyroxine [Synthroid] 25 mcg PO QAM 02/14/19 02/14/19 Unknown History Prochlorperazine [Compazine] 10 mg PO Q6HR 02/14/19 02/14/19 Unknown History Active Medications: Generic Name Dose Route Start Last Admin Trade Name Freq PRN Reason Stop Dose Admin Acetaminophen 650 mg 02/13/19 22:08 02/17/19 22:05 Tylenol PO 650 mg Q4H PRN Administration Fever >101 Lipase/Protease/Amylase 1 each 02/14/19 12:[address] 10,500 Unit FEEDTUBE PRN PRN For Clogged Feeding Tube Aspirin 325 mg 02/14/19 12:00 02/18/19 09:40 Aspirin PO 325 mg QDAY THANIA Administration Dextrose 0 ml 02/13/19 22:03 02/17/19 07:02 D50w (25gm) Syringe IV 50 ml PRN PRN Administration Hypoglycemia Heparin Sodium (Porcine) 5,000 unit 02/13/19 22:00 02/18/19 09:40 Heparin SUB-Q 5,000 unit Q12HR THANIA Administration Norepinephrine 4 mg in 250 mls @ 7.5 mls/hr 02/15/19 07:00 02/15/19 14:34 Levophed Drip 4 Mg/Ns 250 Ml IV 2 mcg/min TITR THANIA 7.5 mls/hr Titration Protocol 2 MCG/MIN Piperacillin Sod/Tazobactam Sod 3.375 gm in 50 mls @ 100 mls/hr 02/15/19 15:00 02/17/19 22:04 Zosyn/Ns 3.375gm/50ml IV 100 mls/hr Q8HR THANIA Administration Protocol Sodium Chloride 1,000 mls @ 125 mls/hr 02/16/19 14:00 02/17/19 06:22 Nacl 0.45% 1000 Ml IV Infused DIRECT THANIA Infusion Insulin Human Isoph/Insulin Regular 10 unit 02/17/19 19:59 02/18/19 08:46 Humulin 70/30 SUB-Q 10 unit BIDDIAB THANIA Administration Insulin Human Lispro 0 unit 02/17/19 12:30 02/18/19 11:38 Humalog SUB-Q 4 unit Q6HR THANIA Administration Protocol Levothyroxine Sodium 25 mcg 02/15/19 10:00 02/18/19 09:40 Synthroid PO 25 mcg QAM THANIA Administration Metoprolol Tartrate 12.5 mg 02/17/19 22:00 02/18/19 09:46 Lopressor PO Not Given BID THANIA Ondansetron HCl 4 mg 02/13/19 22:07 Zofran IV Q8H PRN Nausea And Vomiting Prochlorperazine Maleate 10 mg 02/14/19 18:00 02/18/19 11:25 Compazine PO 10 mg Q6HR THANIA Administration Simple Syrup 15 ml 02/14/19 12:59 Simple Syrup FEEDTUBE PRN PRN Hypoglycemia Simple Syrup 30 ml 02/15/19 11:27 Simple Syrup FEEDTUBE PRN PRN Hypoglycemia Sodium Bicarbonate 325 mg 02/14/19 12:59 Sodium Bicarbonate FEEDTUBE PRN PRN For Clogged Feeding Tube
[2019-02-18] MEDS: ZOSYN/NS 3.375GM/50ML 3.375 GM/50 ML BAG IV SCH ×3 (14:18→22:05)
[2019-02-18] MEDS: NACL 0.45% 1000 ML 1,000 ML IV SCH (19:39)
[2019-02-19] MEDS: COMPAZINE PO SCH ×4 (00:22→18:37)
[2019-02-19] MEDS: HumaLOG SUB-Q SCH ×4 (02:38→18:23)
[2019-02-19 06:05] LABS: Basophils % (Auto) 0.5 % (0.0-1.8); Eosinophils # (Auto) 0.1 K/mm3 (0.0-0.4); Eosinophils % (Auto) 1.2 % (0.0-4.3); Hematocrit 22.4 % (35.5-45.6); Hemoglobin 7.3 gm/dl (11.8-15.2); Lymphocytes % (Auto) 19.6 % (13.4-35.0); Mean Corpuscular HGB Conc 33 % (32-34); Mean Corpuscular Volume 76 fl (84-94); Monocytes # (Auto) 0.5 K/mm3 (0.0-0.8); Monocytes % (Auto) 9.6 % (0.0-7.3); Platelet Count 182 K/mm3 (140-440); Red Blood Count 2.96 M/mm3 (3.65-5.03)
[2019-02-19 06:06] LABS: Red Cell Distribution Width 21.1 % (13.2-15.2)
[2019-02-19 06:29] LABS: BUN/Creatinine Ratio 16; Blood Urea Nitrogen 11 mg/dL (9-20); Hemolysis Index 45
[2019-02-19] MEDS: NACL 0.45% 1000 ML 1,000 ML IV SCH (08:26)
--- NOTE | 2019-02-19 08:38 | Progress Note ---
Assessment and Plan Assessment and plan: --Hypokalemia; Hypernatremia;corrected --Diabetic ketoacidosis; resolved --Episode of hypoglycemia;resolved --Type 2 diabetes mellitus; moderate control Accu-Chek sliding SSC, Novolin 70/30 dose changed diabetic education, --New onset A. fib with normal ventricular rate; not a candidate for chronic anticoagulation Secondary to severe anemia, cardiology following --Possible septic shock;S/P Levophed, resolved --Leukocytosis; secondary to sepsis, resolved --Acute kidney injury; secondary to ATN; resolved --Severe anemia; hemoglobin 6.9-7.1-7.3 history of tongue cancer,transfuse as needed NO evidence of bleeding bleeding --Elevated troponins/non-ST elevation NC /type2 Cardiology following, EF: 20-25% --History of hypothyroidism; continue Synthroid -- Rhabdomyolysis; gentle hydration, trending down --History of tongue cancer; supportive care --Status post PEG; PEG feeds, patent. --Severe malnutrition; nutrition consult, supportive care --DVT prophylaxis; Lovenox Possible discharge in 1-2 days if stable Plan of care reviewed with the patient and his nurse History Interval history: Patient seen and examined medical records reviewed No new events reported by the nursing staff Alert awake oriented Vital signs reviewed Hospitalist Physical - Constitutional Vitals: Temp Pulse Resp BP Pulse Ox 98.2 F 78 28 H 114/83 95 02/19/19 05:25 02/19/19 05:25 02/19/19 05:25 02/19/19 05:25 02/19/19 05:25 General appearance: Present: no acute distress, cachectic, disheveled, other (severely malnourished) - EENT Eyes: Present: PERRL, EOM intact - Neck Neck: Present: supple, normal ROM - Respiratory Respiratory effort: normal Respiratory: bilateral: diminished, negative: rales, rhonchi, wheezing - Cardiovascular Rhythm: regular Heart Sounds: Present: S1 & S2 - Extremities Extremities: no ischemia, No edema - Abdominal General gastrointestinal: soft, non-tender, non-distended, normal bowel sounds, other (PEG tube in place.) - Integumentary Integumentary: Present: clear, warm - Psychiatric Psychiatric: appropriate mood/affect, cooperative - Neurologic Neurologic: CNII-XII intact, moves all extremities Results - Labs CBC & Chem 7: 02/19/19 05:44 02/19/19 05:44 Labs: Laboratory Last Values WBC 5.3 K/mm3 (4.5-11.0) 02/19/19 05:44 RBC 2.96 M/mm3 (3.65-5.03) L 02/19/19 05:44 Hgb 7.3 gm/dl (11.8-15.2) L 02/19/19 05:44 Hct 22.4 % (35.5-45.6) L 02/19/19 05:44 MCV 76 fl (84-94) L 02/19/19 05:44 MCH 25 pg (28-32) L 02/19/19 05:44 MCHC 33 % (32-34) 02/19/19 05:44 RDW 21.1 % (13.2-15.2) H 02/19/19 05:44 Plt Count 182 K/mm3 (140-440) 02/19/19 05:44 Lymph % (Auto) 19.6 % (13.4-35.0) 02/19/19 05:44 Thomas % (Auto) 9.6 % (0.0-7.3) H 02/19/19 05:44 Eos % (Auto) 1.2 % (0.0-4.3) 02/19/19 05:44 Baso % (Auto) 0.5 % (0.0-1.8) 02/19/19 05:44 Lymph # 1.0 K/mm3 (1.2-5.4) L 02/19/19 05:44 Thomas # 0.5 K/mm3 (0.0-0.8) 02/19/19 05:44 Eos # 0.1 K/mm3 (0.0-0.4) 02/19/19 05:44 Baso # 0.0 K/mm3 (0.0-0.1) 02/19/19 05:44 Add Manual Diff Complete 02/16/19 06:00 Total Counted 100 02/16/19 06:00 Seg Neutrophils % 69.1 % (40.0-70.0) 02/19/19 05:44 Seg Neuts % (Manual) 97.0 % (40.0-70.0) H 02/16/19 06:00 Band Neutrophils % 0 % 02/16/19 06:00 Lymphocytes % (Manual) 3.0 % (13.4-35.0) L 02/16/19 06:00 Reactive Lymphs % (Man) 0 % 02/16/19 06:00 Monocytes % (Manual) 0 % (0.0-7.3) 02/16/19 06:00 Eosinophils % (Manual) 0 % (0.0-4.3) 02/16/19 06:00 Basophils % (Manual) 0 % (0.0-1.8) 02/16/19 06:00 Metamyelocytes % 0 % 02/16/19 06:00 Myelocytes % 0 % 02/16/19 06:00 Promyelocytes % 0 % 02/16/19 06:00 Blast Cells % 0 % 02/16/19 06:00 Nucleated RBC % Not Reportable 02/16/19 06:00 Seg Neutrophils # 3.6 K/mm3 (1.8-7.7) 02/19/19 05:44 Seg Neutrophils # Man 8.8 K/mm3 (1.8-7.7) H 02/16/19 06:00 Band Neutrophils # 0.0 K/mm3 02/16/19 06:00 Lymphocytes # (Manual) 0.3 K/mm3 (1.2-5.4) L 02/16/19 06:00 Abs React Lymphs (Man) 0.0 K/mm3 02/16/19 06:00 Monocytes # (Manual) 0.0 K/mm3 (0.0-0.8) 02/16/19 06:00 Eosinophils # (Manual) 0.0 K/mm3 (0.0-0.4) 02/16/19 06:00 Basophils # (Manual) 0.0 K/mm3 (0.0-0.1) 02/16/19 06:00 Metamyelocytes # 0.0 K/mm3 02/16/19 06:00 Myelocytes # 0.0 K/mm3 02/16/19 06:00 Promyelocytes # 0.0 K/mm3 02/16/19 06:00 Blast Cells # 0.0 K/mm3 02/16/19 06:00 WBC Morphology Not Reportable 02/16/19 06:00 Hypersegmented Neuts Not Reportable 02/16/19 06:00 Hyposegmented Neuts Not Reportable 02/16/19 06:00 Hypogranular Neuts Not Reportable 02/16/19 06:00 Smudge Cells Not Reportable 02/16/19 06:00 Toxic Granulation Not Reportable 02/16/19 06:00 Toxic Vacuolation Not Reportable 02/16/19 06:00 Dohle Bodies Not Reportable 02/16/19 06:00 Pelger-Huet Anomaly Not Reportable 02/16/19 06:00 Kendrick Rods Not Reportable 02/16/19 06:00 Platelet Estimate Consistent w auto 02/16/19 06:00 Clumped Platelets Not Reportable 02/16/19 06:00 Plt Clumps, EDTA Not Reportable 02/16/19 06:00 Large Platelets Not Reportable 02/16/19 06:00 Giant Platelets Not Reportable 02/16/19 06:00 Platelet Satelliting Not Reportable 02/16/19 06:00 Plt Morphology Comment Not Reportable 02/16/19 06:00 RBC Morphology Not Reportable 02/16/19 06:00 Dimorphic RBCs Not Reportable 02/16/19 06:00 Polychromasia Not Reportable 02/16/19 06:00 Hypochromasia Few 02/16/19 06:00 Poikilocytosis 1+ 02/16/19 06:00 Anisocytosis 1+ 02/16/19 06:00 Microcytosis Not Reportable 02/16/19 06:00 Macrocytosis Few 02/16/19 06:00 Spherocytes Not Reportable 02/16/19 06:00 Pappenheimer Bodies Not Reportable 02/16/19 06:00 Sickle Cells Not Reportable 02/16/19 06:00 Target Cells Not Reportable 02/16/19 06:00 Tear Drop Cells Not Reportable 02/16/19 06:00 Ovalocytes 1+ 02/16/19 06:00 Helmet Cells Not Reportable 02/16/19 06:00 [place] Bodies Not Reportable 02/16/19 06:00 Shannon Rings Not Reportable 02/16/19 06:00 Anthony Cells Not Reportable 02/16/19 06:00 Bite Cells Not Reportable 02/16/19 06:00 Crenated Cell Not Reportable 02/16/19 06:00 Elliptocytes Rare 03/28/19 06:00 Acanthocytes (Spur) Rare 02/16/19 06:00 Rouleaux Not Reportable 02/16/19 06:00 Hemoglobin C Crystals Not Reportable 02/16/19 06:00 Schistocytes Rare 02/16/19 06:00 Malaria parasites Not Reportable 02/16/19 06:00 Ulices Bodies Not Reportable 02/16/19 06:00 Hem Pathologist Commnt No 02/16/19 06:00 PT 18.4 Sec. (12.2-14.9) H 02/13/19 19:13 INR 1.43 (0.87-1.13) H 02/13/19 19:13 APTT 44.5 Sec. (24.2-36.6) H 02/13/19 19:13 POC ABG pH 7.313 (7.35-7.45) L 02/15/19 03:24 POC ABG pO2 68 (80-105) L 02/15/19 03:24 POC ABG HCO3 9.4 (22-26 mml/L) 02/15/19 03:24 POC ABG Total CO2 10 (23-27mmol/L) 02/15/19 03:24 POC ABG O2 Sat 92 02/15/19 03:24 POC ABG Base Excess -17 ((-2) - (+3)mmol/L) 02/15/19 03:24 VBG pH 7.138 (7.320-7.420) L* 02/13/19 19:13 FiO2 21 % 02/15/19 03:24 Sodium 144 mmol/L (137-145) 02/19/19 05:44 Potassium 4.0 mmol/L (3.6-5.0) D 02/19/19 05:44 Chloride 107.2 mmol/L (98-107) H 02/19/19 05:44 Carbon Dioxide 23 mmol/L (22-30) 02/19/19 05:44 Anion Gap 18 mmol/L 02/19/19 05:44 BUN 11 mg/dL (9-20) 02/19/19 05:44 Creatinine 0.7 mg/dL (0.8-1.5) L 02/19/19 05:44 Estimated GFR > 60 ml/min 02/19/19 05:44 BUN/Creatinine Ratio 16 % 02/19/19 05:44 Glucose 202 mg/dL (75-100) H 02/19/19 05:44 POC Glucose 282 (70-105) H 02/19/19 07:18 Hemoglobin A1c 10.9 % (4-6) H 02/16/19 06:00 Calcium 9.0 mg/dL (8.4-10.2) 02/19/19 05:44 Phosphorus 1.60 mg/dL (2.5-4.5) L D 02/16/19 06:00 Magnesium 2.10 mg/dL (1.7-2.3) 02/16/19 06:00 Total Bilirubin 0.30 mg/dL (0.1-1.2) 02/18/19 05:40 AST 27 units/L (5-40) 02/18/19 05:40 ALT 26 units/L (7-56) 02/18/19 05:40 Alkaline Phosphatase 76 units/L (35-129) 02/18/19 05:40 Total Creatine Kinase 1661 units/L (55-170) H 02/15/19 04:36 CK-MB (CK-2) 24.9 ng/mL (0.0-4.0) H 02/15/19 04:36 CK-MB (CK-2) Rel Index 1.4 (0-4) 02/15/19 04:36 Troponin T 0.205 ng/mL (0.00-0.029) H* D 02/15/19 04:36 Total Protein 5.2 g/dL (6.3-8.2) L 02/18/19 05:40 Albumin 2.2 g/dL (3.9-5) L 02/18/19 05:40 Albumin/Globulin Ratio 0.7 % 02/18/19 05:40 Triglycerides 96 mg/dL (2-149) 02/13/19 19:13 Cholesterol 138 mg/dL (50-199) 02/13/19 19:13 LDL Cholesterol Direct 94 mg/dL (50-130) 02/13/19 19:13 HDL Cholesterol 40 mg/dL (40-59) 02/13/19 19:13 Cholesterol/HDL Ratio 3.45 % 02/13/19 19:13 Lipase 17 units/L (13-60) 02/13/19 19:13 TSH 5.530 mlU/mL (0.270-4.200) H 02/15/19 16:45 Free T4 0.84 ng/dL (0.76-1.46) 02/15/19 16:45 Urine Color Yellow (Yellow) 02/13/19 23:00 Urine Turbidity Clear (Clear) 02/13/19 23:00 Urine pH 5.0 (5.0-7.0) 02/13/19 23:00 Ur Specific Bryan 1.024 (1.003-1.030) 02/13/19 23:00 Urine Protein <15 mg/dl mg/dL (Negative) 02/13/19 23:00 Urine Glucose (UA) >=500 mg/dL (Negative) 02/13/19 23:00 Urine Ketones 20 mg/dL (Negative) 02/13/19 23:00 Urine Blood Mod (Negative) 02/13/19 23:00 Urine Nitrite Neg (Negative) 02/13/19 23:00 Urine Bilirubin Neg (Negative) 02/13/19 23:00 Urine Urobilinogen < 2.0 mg/dL (<2.0) 02/13/19 23:00 Ur Leukocyte Esterase Neg (Negative) 02/13/19 23:00 Urine WBC (Auto) 3.0 /HPF (0.0-6.0) 02/13/19 23:00 Urine RBC (Auto) 6.0 /HPF (0.0-6.0) 02/13/19 23:00 Active Medications - Current Medications Current Medications: Generic Name Dose Route Start Last Admin Trade Name Freq PRN Reason Stop Dose Admin Acetaminophen 650 mg 02/13/19 22:08 02/17/19 22:05 Tylenol PO 650 mg Q4H PRN Administration Fever >101 Lipase/Protease/Amylase 1 each 02/14/19 12:59 Pancreaze 10,500 Unit FEEDTUBE PRN PRN For Clogged Feeding Tube Aspirin 325 mg 02/14/19 12:00 02/18/19 09:40 Aspirin PO 325 mg QDAY THANIA Administration Dextrose 0 ml 02/13/19 22:03 02/17/19 07:02 D50w (25gm) Syringe IV 50 ml PRN PRN Administration Hypoglycemia Heparin Sodium (Porcine) 5,000 unit 02/13/19 22:00 02/18/19 22:09 Heparin SUB-Q 5,000 unit Q12HR THANIA Administration Norepinephrine 4 mg in 250 mls @ 7.5 mls/hr 02/15/19 07:00 02/15/19 14:34 Levophed Drip 4 Mg/Ns 250 Ml IV 2 mcg/min TITR THANIA 7.5 mls/hr Titration Protocol 2 MCG/MIN Piperacillin Sod/Tazobactam Sod 3.375 gm in 50 mls @ 100 mls/hr 02/15/19 15:00 02/18/19 22:05 Zosyn/Ns 3.375gm/50ml IV 100 mls/hr Q8HR THANIA Administration Protocol Sodium Chloride 1,000 mls @ 125 mls/hr 02/16/19 14:00 02/19/19 08:26 Nacl 0.45% 1000 Ml IV 75 mls/hr DIRECT THANIA Administration Insulin Human Isoph/Insulin Regular 10 unit 02/17/19 19:59 02/19/19 08:26 Humulin 70/30 SUB-Q 10 unit BIDDIAB THANIA Administration Insulin Human Lispro 0 unit 02/17/19 12:30 02/19/19 08:25 Humalog SUB-Q 4 unit Q6HR THANIA Administration Protocol Levothyroxine Sodium 25 mcg 02/15/19 10:00 02/18/19 09:40 Synthroid PO 25 mcg QAM THANIA Administration Metoprolol Tartrate 12.5 mg 02/17/19 22:00 02/18/19 22:12 Lopressor PO 12.5 mg BID THANIA Administration Ondansetron HCl 4 mg 02/13/19 22:07 Zofran IV Q8H PRN Nausea And Vomiting Prochlorperazine Maleate 10 mg 02/14/19 18:00 02/19/19 07:00 Compazine PO 10 mg Q6HR THANIA Administration Simple Syrup 15 ml 02/14/19 12:59 Simple Syrup FEEDTUBE PRN PRN Hypoglycemia Simple Syrup 30 ml 02/15/19 11:27 Simple Syrup FEEDTUBE PRN PRN Hypoglycemia Sodium Bicarbonate 325 mg 02/14/19 12:59 Sodium Bicarbonate FEEDTUBE PRN PRN For Clogged Feeding Tube Nutrition/Malnutrition Assess - Dietary Evaluation Nutrition/Malnutrition Findings: Nutrition Notes Start: 02/14/19 10:17 Freq: Status: Active Protocol: Document 02/16/19 11:09 TW (Rec: 02/16/19 11:18 TW [id number]) Co-Sign 02/16/19 11:09 LP Nutrition Notes Initial or Follow up Reassessment Current Diagnosis Diabetes Other Pertinent Diagnosis DKA, rhabdomolysis, bilaterial pneumonia, hypothermia, elevated troponin Current Diet NPO Labs/Tests Na 157 BG 196 Pertinent Medications reviewed Height 5 ft 9 in Weight 49.895 kg [place] Body Weight (kg) 72.72 BMI 16.2 Weight Status Underweight Subjective/Other Information F/U for TF tolerance. Pt TF running at goal (60mL/hr). Pt reports tolerating TF. Noted mild clavicular, orbital, and temporal wasting. Noted hair falling onto pillow indicating pro/kcal deficiency. Percent of energy/protein needs met: >75% Burn Absent Trauma Absent Minimum of two criteria Yes Body Fat Depletion Mild depletion (non-severe) Muscle Mass Mild Depletion (non-severe) Protein-Calorie Malnutrition Non-Severe #2 Nutrition Diagnosis Malnutrition Etiology inadequate oral intake As Evidenced by Signs and Symptoms BMI of 16.2, temporal, orbital , and clavicle wasting, easily pluckable hair #1 Nutrition Diagnosis Inadequate oral intake Diagnosis Progress(for reassessment Continues documentation) Is patient on ventilator? No Is Patient Ambulatory and/or Out of Bed No REE-([facility]-confined to bed) 1611.588 Kcal/Kg value to use for calculation 42 Approximate Energy Requirements Using 2096 kcal/Kg Calculation Used for Recommendations Kcal/kg Additional Notes Pro 60-75g (1.2-1.5g/kg) Fluid 1 mL/kcal Nutrition Intervention Change Diet Order: TF Nutrition Support: Glucerna 1.2 at 65 mL/hr Water flush of 100mL q4h Kcal 1,872 Protein (gm) 94 Fluid (mL) 1,256 Goal #1 Continue to meet at least 75% of kcal and pro needs via TF Anticipated Discharge Needs: Unable to determine at this time Follow-Up By: 02/23/19 Additional Comments F/U: TF tolerance
--- NOTE | 2019-02-19 10:18 | XRay Report ---
PROCEDURE: XR CHEST 1V AP TECHNIQUE: Chest, portable upright HISTORY: f/u pneumonia COMPARISON: 02/13/2019 FINDINGS: There are unchanged infiltrates bilaterally, right more than left. There is an unchanged right pleura l effusion. There is no cardiomegaly, vascular congestion or pneumothorax seen. IMPRESSION: Unchanged infiltrates and probable right pleural effusion. This document is electronically signed by Chikis Cortes MD., February 19 2019 10:16:21 AM ET
[2019-02-19] MEDS: ASPIRIN PO SCH (10:32)
[2019-02-19] MEDS: FEOSOL PO SCH ×2 (10:32→11:13)
[2019-02-19] MEDS: SYNTHROID PO SCH (10:41)
[2019-02-19] MEDS: HEPARIN SUB-Q SCH ×2 (10:42→22:00)
[2019-02-19] MEDS: LOPRESSOR PO SCH ×2 (10:43→21:58)
--- NOTE | 2019-02-19 10:52 | Progress Note ---
Assessment and Plan - Patient Problems (1) Acute kidney failure with tubular necrosis Current Visit: Yes Status: Acute Plan to address problem: Renal function has improved back to baseline with adequate hydration and treatment of DKA. Will continue to monitor closely. (2) Hypernatremia Current Visit: Yes Status: Acute Plan to address problem: Improving with current measures including FWF @250cc q4hrs and D51/2 NS at 125 cc/hr. Will continue to monitor. (3) Pneumonia Current Visit: Yes Status: Acute Plan to address problem: Continue current antibiotic regimen. (4) Rhabdomyolysis Current Visit: Yes Status: Acute Plan to address problem: CPK levels continue to trend down. Subjective Date of service: 02/19/19 Principal diagnosis: DKA Interval history: No acute issues overnight. Labs noted and overall improvement noted, renal function remains stable, and hypernatremia has improved. Objective - Vital Signs Vital signs: Vital Signs - 12hr 02/19/19 02/19/19 02/19/19 05:25 10:29 10:43 Temperature 98.2 F Pulse Rate 78 78 Respiratory 28 H Rate Blood Pressure 114/83 106/73 O2 Sat by Pulse 95 92 Oximetry - General Appearance General appearance: appears stated age, chronically ill, frail EENT: ATNC Neck: no JVD, no thyromegaly Respiratory: Present: Clear to Ascultation Cardiology: regular, S1S2 Gastrointestinal: normal, normoactive bowel sounds Integumentary: no rash, warm and dry Neurologic: no focal deficit Musculoskeletal: other (-edema ) Psychiatric: mood/affect appropriate, cooperative - Lab 02/19/19 05:44 02/19/19 05:44 Most recent lab results Calcium 9.0 mg/dL (8.4-10.2) 02/19/19 05:44 Phosphorus 1.60 mg/dL (2.5-4.5) L D 02/16/19 06:00 Magnesium 2.10 mg/dL (1.7-2.3) 02/16/19 06:00 - Allied health notes Allied health notes reviewed: nursing Medications & Allergies - Medications Allergies/Adverse Reactions: Allergies butorphanol tartrate [From Stadol] Adverse Reaction (Verified 02/14/19 11:42) Unknown codeine Adverse Reaction (Verified 02/14/19 11:42) Unknown diazepam [From Valium] Adverse Reaction (Verified 02/14/19 11:42) Unknown iodine Adverse Reaction (Verified 02/14/19 11:42) Unknown phenobarbital Adverse Reaction (Verified 02/14/19 11:42) Unknown phenytoin sodium [From Dilantin] Adverse Reaction (Verified 02/14/19 11:42) Unknown phenytoin sodium extended [From Dilantin] Adverse Reaction (Verified 02/14/19 11:42) Unknown prednisone Adverse Reaction (Verified 02/14/19 11:42) Unknown sulfasalazine [From Azulfidine] Adverse Reaction (Verified 02/14/19 11:42) Unknown Home Medications: Home Medications Medication Instructions Recorded Confirmed Last Taken Type Insulin Glargine,Hum.rec.anlog 44 unit SQ QHS 02/14/19 02/14/19 Unknown History [Lantus Solostar] Levothyroxine [Synthroid] 25 mcg PO QAM 02/14/19 02/14/19 Unknown History Prochlorperazine [Compazine] 10 mg PO Q6HR 02/14/19 02/14/19 Unknown History Active Medications: Generic Name Dose Route Start Last Admin Trade Name Freq PRN Reason Stop Dose Admin Acetaminophen 650 mg 02/13/19 22:08 02/17/19 22:05 Tylenol PO 650 mg Q4H PRN Administration Fever >101 Lipase/Protease/Amylase 1 each 02/14/19 12:59 Pancreaze 10,500 Unit FEEDTUBE PRN PRN For Clogged Feeding Tube Aspirin 325 mg 02/14/19 12:00 02/19/19 10:32 Aspirin PO 325 mg QDAY THANIA Administration Dextrose 0 ml 02/13/19 22:03 02/17/19 07:02 D50w (25gm) Syringe IV 50 ml PRN PRN Administration Hypoglycemia Ferrous Sulfate 325 mg 02/19/19 10:00 Feosol PO BID THANIA Heparin Sodium (Porcine) 5,000 unit 02/13/19 22:00 02/19/19 10:42 Heparin SUB-Q 5,000 unit Q12HR THANIA Administration Piperacillin Sod/Tazobactam Sod 3.375 gm in 50 mls @ 100 mls/hr 02/15/19 15:00 02/18/19 22:05 Zosyn/Ns 3.375gm/50ml IV 100 mls/hr Q8HR THANIA Administration Protocol Sodium Chloride 1,000 mls @ 125 mls/hr 02/16/19 14:00 02/19/19 08:26 Nacl 0.45% 1000 Ml IV 75 mls/hr DIRECT THANIA Administration Insulin Human Isoph/Insulin Regular 10 unit 02/17/19 19:59 02/19/19 08:26 Humulin 70/30 SUB-Q 10 unit BIDDIAB THANIA Administration Insulin Human Lispro 0 unit 02/17/19 12:30 02/19/19 08:25 Humalog SUB-Q 4 unit Q6HR THANIA Administration Protocol Levothyroxine Sodium 25 mcg 02/15/19 10:00 02/19/19 10:41 Synthroid PO 25 mcg QAM THANIA Administration Metoprolol Tartrate 12.5 mg 02/17/19 22:00 02/19/19 10:43 Lopressor PO Not Given BID THANIA Ondansetron HCl 4 mg 02/13/19 22:07 Zofran IV Q8H PRN Nausea And Vomiting Prochlorperazine Maleate 10 mg 02/14/19 18:00 02/19/19 07:00 Compazine PO 10 mg Q6HR THANIA Administration Simple Syrup 15 ml 02/14/19 12:59 Simple Syrup FEEDTUBE PRN PRN Hypoglycemia Simple Syrup 30 ml 02/15/19 11:27 Simple Syrup FEEDTUBE PRN PRN Hypoglycemia Sodium Bicarbonate 325 mg 02/14/19 12:59 Sodium Bicarbonate FEEDTUBE PRN PRN For Clogged Feeding Tube
[2019-02-19] MEDS: ZOSYN/NS 3.375GM/50ML 3.375 GM/50 ML BAG IV SCH ×2 (13:50→22:16)
[2019-02-19] MEDS: FERROUS SULFATE FEEDTUBE SCH ×2 (18:19→22:32)
[2019-02-20] MEDS: COMPAZINE PO SCH ×4 (00:28→22:48)
[2019-02-20] MEDS: HumaLOG SUB-Q SCH ×4 (00:29→20:19)
[2019-02-20] MEDS: NACL 0.45% 1000 ML 1,000 ML IV SCH (00:36)
[2019-02-20] MEDS: ZOSYN/NS 3.375GM/50ML 3.375 GM/50 ML BAG IV SCH ×2 (06:16→22:46)
[2019-02-20 07:45] LABS: Basophils % (Auto) 0.1 % (0.0-1.8); Eosinophils # (Auto) 0.1 K/mm3 (0.0-0.4); Eosinophils % (Auto) 2.2 % (0.0-4.3); Hematocrit 21.2 % (35.5-45.6); Hemoglobin 6.9 gm/dl (11.8-15.2); Mean Corpuscular HGB Conc 32 % (32-34); Mean Corpuscular Volume 78 fl (84-94); Monocytes # (Auto) 0.5 K/mm3 (0.0-0.8); Platelet Count 215 K/mm3 (140-440); Red Blood Count 2.72 M/mm3 (3.65-5.03)
[2019-02-20 08:04] LABS: Red Cell Distribution Width 21.5 % (13.2-15.2)
[2019-02-20 08:06] LABS: Alanine Aminotransferase 18 units/L (7-56); Albumin 2.3 g/dL (3.9-5); BUN/Creatinine Ratio 13; Blood Urea Nitrogen 10 mg/dL (9-20); Hemolysis Index 0
[2019-02-20] MEDS: SYNTHROID PO SCH (10:25)
[2019-02-20] MEDS: LOPRESSOR PO SCH ×2 (10:30→23:02)
[2019-02-20] MEDS: HEPARIN SUB-Q SCH ×2 (10:37→22:47)
[2019-02-20] MEDS: ASPIRIN PO SCH (10:59)
--- NOTE | 2019-02-20 11:19 | Progress Note ---
Assessment and Plan Pt continues deny chest pain, troponin elevation pattern appears c/w NSTEMI type II. Pt today reports h/o prior AMI with prior PCI. Severe anemia precludes ischemic evaluation at this time. Will plan for ischemic eval in setting of elevated Emily and CMP once medically stable. Recommend further eval of anemia per primary - GI and/or heme/oncology evaluation? Dr. Matos d/w Dr. Cooley. Pt with new diagnosis of CMP EF 20-25%. No current clinical evidence of acutely decompensated HF. Cont GDMT as tolerated. Pt in SR. Not currently a candidate for initiation of systemic AC in regards to PAF in setting of severe anemia. Replete lytes and recheck labs in AM. The patient has been seen in conjunction with Dr. Lopez who agrees with the assessment and plan of care. - Patient Problems (1) NSTEMI (non-ST elevated myocardial infarction) Current Visit: Yes Status: Acute Plan to address problem: type 2 (2) Paroxysmal atrial fibrillation Current Visit: Yes Status: Chronic (3) Abnormal ECG Current Visit: Yes Status: Resolved (4) Sepsis Current Visit: Yes Status: Suspected (5) Hypotension Current Visit: Yes Status: Resolved (6) DKA (diabetic ketoacidoses) Current Visit: Yes Status: Resolved (7) Acute kidney injury Current Visit: Yes Status: Acute (8) Rhabdomyolysis Current Visit: Yes Status: Acute (9) Altered mental status Current Visit: Yes Status: Resolved (10) Anemia Current Visit: Yes Status: Acute (11) Cardiomyopathy Current Visit: Yes Status: Chronic (12) CAD (coronary artery disease) Current Visit: Yes Status: Chronic Plan to address problem: reported AMI with PCI Subjective Date of service: 02/20/19 Principal diagnosis: DKA Interval history: pt resting in bed, no apparent distress, no current complaints. in SR on telemetry. Objective Vital Signs Temp Pulse Resp BP Pulse Ox 02/20/19 10:30 86 121/81 02/20/19 05:08 98.3 F 24 121/81 02/19/19 22:00 93 02/19/19 21:58 87 119/73 02/19/19 21:56 98.3 F 86 24 119/73 91 02/19/19 16:17 97.7 F 85 16 129/84 96 02/19/19 11:42 98.2 F 81 28 H 132/88 95 - Physical Examination General: No Apparent Distress HEENT: Positive: PERRL Neck: Positive: neck supple Cardiac: Positive: Reg Rate and Rhythm, S1/S2 Lungs: Positive: clear to auscultation Neuro: Positive: Grossly Intact Abdomen: Positive: Soft Extremities: Present: normal - Labs and Meds Cardiac Enzymes 02/20/19 Range/Units 06:17 AST 15 (5-40) units/L CBC 02/20/19 Range/Units 06:17 WBC 4.4 L (4.5-11.0) K/mm3 RBC 2.72 L (3.65-5.03) M/mm3 Hgb 6.9 L (11.8-15.2) gm/dl Hct 21.2 L (35.5-45.6) % Plt Count 215 (140-440) K/mm3 Lymph # 1.0 L (1.2-5.4) K/mm3 [place] # 0.5 (0.0-0.8) K/mm3 Eos # 0.1 (0.0-0.4) K/mm3 Baso # 0.0 (0.0-0.1) K/mm3 Comprehensive Metabolic Panel 02/20/19 Range/Units 06:17 Sodium 143 (137-145) mmol/L Potassium 3.5 L (3.6-5.0) mmol/L Chloride 104.8 (98-107) mmol/L Carbon Dioxide 26 (22-30) mmol/L BUN 10 (9-20) mg/dL Creatinine 0.8 (0.8-1.5) mg/dL Glucose 239 H (75-100) mg/dL Calcium 9.0 (8.4-10.2) mg/dL AST 15 (5-40) units/L ALT 18 (7-56) units/L Alkaline Phosphatase 63 (35-129) units/L Total Protein 5.1 L (6.3-8.2) g/dL Albumin 2.3 L (3.9-5) g/dL - Imaging and Cardiology EKG: report reviewed, image reviewed Echo: report reviewed (02/15/2019: EF 20-25%, mild LVH, global hypokinesis, mild MR, mild TR) - Telemetry EKG Rhythm: Sinus Rhythm - Allied health notes Allied health notes reviewed: nursing
[2019-02-20] MEDS ORDERED: POTASSIUM CHLORIDE FEEDTUBE ONE (12:00)
[2019-02-20] MEDS ORDERED: NACL 0.9% 500 ML 500 ML IV NR (12:06)
--- NOTE | 2019-02-20 12:10 | Progress Note ---
Assessment and Plan Assessment and plan: --Hypokalemia; replace KCl --Hypomagnesemia; magnesium sulfate IV --Anemia;no evidence of bleeding Transfuse 1 unit of PRBC, check H&H --Type 2 diabetes mellitus; moderate control Accu-Chek sliding SSC, Novolin 70/30 dose changed diabetic education, --New onset A. fib with normal ventricular rate; not a candidate for chronic anticoagulation Secondary to severe anemia, cardiology following --Possible septic shock;S/P Levophed, resolved --Leukocytosis; secondary to sepsis, resolved --Acute kidney injury; secondary to ATN; resolved --Severe anemia; hemoglobin 6.9-7.1-7.3-6.9 history of tongue cancer,transfuse as needed NO evidence of bleeding bleeding --Elevated troponins/non-ST elevation GA /type2 Cardiology following, EF: 20-25% --History of hypothyroidism; continue Synthroid -- Rhabdomyolysis; gentle hydration, trending down --History of tongue cancer; supportive care --Status post PEG; PEG feeds, patent. --Severe malnutrition; nutrition consult, supportive care --DVT prophylaxis; Lovenox Possible discharge in 1-2 days if stable Plan of care reviewed with the patient and his nurse History Interval history: Patient seen and examined medical records reviewed No new events ceased Mild drop in hemoglobin to 6.9 Patient has mild diarrhea Physical signs noted Hospitalist Physical - Constitutional Vitals: Temp Pulse Resp BP Pulse Ox 98.3 F 71 20 112/81 94 02/20/19 05:08 02/20/19 12:04 02/20/19 12:04 02/20/19 12:04 02/20/19 12:04 General appearance: Present: no acute distress, cachectic, disheveled, other (severely malnourished) - EENT Eyes: Present: PERRL, EOM intact - Neck Neck: Present: supple, normal ROM - Respiratory Respiratory effort: normal Respiratory: bilateral: diminished, negative: rales, rhonchi, wheezing - Cardiovascular Rhythm: regular Heart Sounds: Present: S1 & S2 - Extremities Extremities: no ischemia, No edema - Abdominal General gastrointestinal: soft, non-tender, non-distended, normal bowel sounds, other (PEG in place) - Integumentary Integumentary: Present: clear, warm - Psychiatric Psychiatric: appropriate mood/affect, cooperative - Neurologic Neurologic: moves all extremities Results - Labs CBC & Chem 7: 02/20/19 06:17 02/20/19 06:17 Labs: Laboratory Last Values WBC 4.4 K/mm3 (4.5-11.0) L 02/20/19 06:17 RBC 2.72 M/mm3 (3.65-5.03) L 02/20/19 06:17 Hgb 6.9 gm/dl (11.8-15.2) L 02/20/19 06:17 Hct 21.2 % (35.5-45.6) L 02/20/19 06:17 MCV 78 fl (84-94) L 02/20/19 06:17 MCH 25 pg (28-32) L 02/20/19 06:17 MCHC 32 % (32-34) 02/20/19 06:17 RDW 21.5 % (13.2-15.2) H 02/20/19 06:17 Plt Count 215 K/mm3 (140-440) 02/20/19 06:17 Lymph % (Auto) 23.0 % (13.4-35.0) 02/20/19 06:17 [place] % (Auto) 11.0 % (0.0-7.3) H 02/20/19 06:17 Eos % (Auto) 2.2 % (0.0-4.3) 02/20/19 06:17 Baso % (Auto) 0.1 % (0.0-1.8) 02/20/19 06:17 Lymph # 1.0 K/mm3 (1.2-5.4) L 02/20/19 06:17 [place] # 0.5 K/mm3 (0.0-0.8) 02/20/19 06:17 Eos # 0.1 K/mm3 (0.0-0.4) 02/20/19 06:17 Baso # 0.0 K/mm3 (0.0-0.1) 02/20/19 06:17 Add Manual Diff Complete 02/16/19 06:00 Total Counted 100 02/16/19 06:00 Seg Neutrophils % 63.7 % (40.0-70.0) 02/20/19 06:17 Seg Neuts % (Manual) 97.0 % (40.0-70.0) H 02/16/19 06:00 Band Neutrophils % 0 % 02/16/19 06:00 Lymphocytes % (Manual) 3.0 % (13.4-35.0) L 02/16/19 06:00 Reactive Lymphs % (Man) 0 % 02/16/19 06:00 Monocytes % (Manual) 0 % (0.0-7.3) 02/16/19 06:00 Eosinophils % (Manual) 0 % (0.0-4.3) 02/16/19 06:00 Basophils % (Manual) 0 % (0.0-1.8) 02/16/19 06:00 Metamyelocytes % 0 % 02/16/19 06:00 Myelocytes % 0 % 02/16/19 06:00 Promyelocytes % 0 % 02/16/19 06:00 Blast Cells % 0 % 02/16/19 06:00 Nucleated RBC % Not Reportable 02/16/19 06:00 Seg Neutrophils # 2.8 K/mm3 (1.8-7.7) 02/20/19 06:17 Seg Neutrophils # Man 8.8 K/mm3 (1.8-7.7) H 02/16/19 06:00 Band Neutrophils # 0.0 K/mm3 02/16/19 06:00 Lymphocytes # (Manual) 0.3 K/mm3 (1.2-5.4) L 02/16/19 06:00 Abs React Lymphs (Man) 0.0 K/mm3 02/16/19 06:00 Monocytes # (Manual) 0.0 K/mm3 (0.0-0.8) 02/16/19 06:00 Eosinophils # (Manual) 0.0 K/mm3 (0.0-0.4) 02/16/19 06:00 Basophils # (Manual) 0.0 K/mm3 (0.0-0.1) 02/16/19 06:00 Metamyelocytes # 0.0 K/mm3 02/16/19 06:00 Myelocytes # 0.0 K/mm3 02/16/19 06:00 Promyelocytes # 0.0 K/mm3 02/16/19 06:00 Blast Cells # 0.0 K/mm3 02/16/19 06:00 WBC Morphology Not Reportable 02/16/19 06:00 Hypersegmented Neuts Not Reportable 02/16/19 06:00 Hyposegmented Neuts Not Reportable 02/16/19 06:00 Hypogranular Neuts Not Reportable 02/16/19 06:00 Smudge Cells Not Reportable 02/16/19 06:00 Toxic Granulation Not Reportable 02/16/19 06:00 Toxic Vacuolation Not Reportable 02/16/19 06:00 Dohle Bodies Not Reportable 02/16/19 06:00 Pelger-Huet Anomaly Not Reportable 02/16/19 06:00 Kendrick Rods Not Reportable 02/16/19 06:00 Platelet Estimate Consistent w auto 02/16/19 06:00 Clumped Platelets Not Reportable 02/16/19 06:00 Plt Clumps, EDTA Not Reportable 02/16/19 06:00 Large Platelets Not Reportable 02/16/19 06:00 Giant Platelets Not Reportable 02/16/19 06:00 Platelet Satelliting Not Reportable 02/16/19 06:00 Plt Morphology Comment Not Reportable 02/16/19 06:00 RBC Morphology Not Reportable 02/16/19 06:00 Dimorphic RBCs Not Reportable 02/16/19 06:00 Polychromasia Not Reportable 02/16/19 06:00 Hypochromasia Few 02/16/19 06:00 Poikilocytosis 1+ 02/16/19 06:00 Anisocytosis 1+ 02/16/19 06:00 Microcytosis Not Reportable 02/16/19 06:00 Macrocytosis Few 02/16/19 06:00 Spherocytes Not Reportable 02/16/19 06:00 Pappenheimer Bodies Not Reportable 02/16/19 06:00 Sickle Cells Not Reportable 02/16/19 06:00 Target Cells Not Reportable 02/16/19 06:00 Tear Drop Cells Not Reportable 02/16/19 06:00 Ovalocytes 1+ 02/16/19 06:00 Helmet Cells Not Reportable 02/16/19 06:00 Jose-Dales Bodies Not Reportable 02/16/19 06:00 [place] Rings Not Reportable 02/16/19 06:00 Geremias Cells Not Reportable 02/16/19 06:00 Bite Cells Not Reportable 02/16/19 06:00 Crenated Cell Not Reportable 02/16/19 06:00 Elliptocytes Rare 02/16/19 06:00 Acanthocytes (Spur) Rare 02/16/19 06:00 Rouleaux Not Reportable 02/16/19 06:00 Hemoglobin C Crystals Not Reportable 02/16/19 06:00 Schistocytes Rare 02/16/19 06:00 Malaria parasites Not Reportable 02/16/19 06:00 Ulices Bodies Not Reportable 02/16/19 06:00 Hem Pathologist Commnt No 02/16/19 06:00 PT 18.4 Sec. (12.2-14.9) H 02/13/19 19:13 INR 1.43 (0.87-1.13) H 02/13/19 19:13 APTT 44.5 Sec. (24.2-36.6) H 02/13/19 19:13 POC ABG pH 7.313 (7.35-7.45) L 02/15/19 03:24 POC ABG pO2 68 (80-105) L 02/15/19 03:24 POC ABG HCO3 9.4 (22-26 mml/L) 02/15/19 03:24 POC ABG Total CO2 10 (23-27mmol/L) 02/15/19 03:24 POC ABG O2 Sat 92 02/15/19 03:24 POC ABG Base Excess -17 ((-2) - (+3)mmol/L) 02/15/19 03:24 VBG pH 7.138 (7.320-7.420) L* 02/13/19 19:13 FiO2 21 % 02/15/19 03:24 Sodium 143 mmol/L (137-145) 02/20/19 06:17 Potassium 3.5 mmol/L (3.6-5.0) L 02/20/19 06:17 Chloride 104.8 mmol/L (98-107) 02/20/19 06:17 Carbon Dioxide 26 mmol/L (22-30) 02/20/19 06:17 Anion Gap 16 mmol/L 02/20/19 06:17 BUN 10 mg/dL (9-20) 02/20/19 06:17 Creatinine 0.8 mg/dL (0.8-1.5) 02/20/19 06:17 Estimated GFR > 60 ml/min 02/20/19 06:17 BUN/Creatinine Ratio 13 % 02/20/19 06:17 Glucose 239 mg/dL (75-100) H 02/20/19 06:17 POC Glucose 366 (70-105) H 02/20/19 11:05 Hemoglobin A1c 10.9 % (4-6) H 02/16/19 06:00 Calcium 9.0 mg/dL (8.4-10.2) 02/20/19 06:17 Phosphorus 1.60 mg/dL (2.5-4.5) L D 02/16/19 06:00 Magnesium 1.20 mg/dL (1.7-2.3) L 02/20/19 06:17 Total Bilirubin 0.20 mg/dL (0.1-1.2) 02/20/19 06:17 AST 15 units/L (5-40) 02/20/19 06:17 ALT 18 units/L (7-56) 02/20/19 06:17 Alkaline Phosphatase 63 units/L (35-129) 02/20/19 06:17 Total Creatine Kinase 30 units/L (55-170) L 02/20/19 06:17 CK-MB (CK-2) 24.9 ng/mL (0.0-4.0) H 02/15/19 04:36 CK-MB (CK-2) Rel Index 1.4 (0-4) 02/15/19 04:36 Troponin T 0.205 ng/mL (0.00-0.029) H* D 02/15/19 04:36 Total Protein 5.1 g/dL (6.3-8.2) L 02/20/19 06:17 Albumin 2.3 g/dL (3.9-5) L 02/20/19 06:17 Albumin/Globulin Ratio 0.8 % 02/20/19 06:17 Triglycerides 96 mg/dL (2-149) 02/13/19 19:13 Cholesterol 138 mg/dL (50-199) 02/13/19 19:13 LDL Cholesterol Direct 94 mg/dL (50-130) 02/13/19 19:13 HDL Cholesterol 40 mg/dL (40-59) 02/13/19 19:13 Cholesterol/HDL Ratio 3.45 % 02/13/19 19:13 Lipase 17 units/L (13-60) 02/13/19 19:13 TSH 5.530 mlU/mL (0.270-4.200) H 02/15/19 16:45 Free T4 0.84 ng/dL (0.76-1.46) 02/15/19 16:45 Urine Color Yellow (Yellow) 02/13/19 23:00 Urine Turbidity Clear (Clear) 02/13/19 23:00 Urine pH 5.0 (5.0-7.0) 02/13/19 23:00 Ur Specific [place] 1.024 (1.003-1.030) 02/13/19 23:00 Urine Protein <15 mg/dl mg/dL (Negative) 02/13/19 23:00 Urine Glucose (UA) >=500 mg/dL (Negative) 02/13/19 23:00 Urine Ketones 20 mg/dL (Negative) 02/13/19 23:00 Urine Blood Mod (Negative) 02/13/19 23:00 Urine Nitrite Neg (Negative) 02/13/19 23:00 Urine Bilirubin Neg (Negative) 02/13/19 23:00 Urine Urobilinogen < 2.0 mg/dL (<2.0) 02/13/19 23:00 Ur Leukocyte Esterase Neg (Negative) 02/13/19 23:00 Urine WBC (Auto) 3.0 /HPF (0.0-6.0) 02/13/19 23:00 Urine RBC (Auto) 6.0 /HPF (0.0-6.0) 02/13/19 23:00 Active Medications - Current Medications Current Medications: Generic Name Dose Route Start Last Admin Trade Name Freq PRN Reason Stop Dose Admin Acetaminophen 650 mg 02/13/19 22:08 02/17/19 22:05 Tylenol PO 650 mg Q4H PRN Administration Fever >101 Lipase/Protease/Amylase 1 each 02/14/19 12:59 Pancreaze 10,500 Unit FEEDTUBE PRN PRN For Clogged Feeding Tube Aspirin 81 mg 02/20/19 12:00 Baby Aspirin PO QDAY THANIA Dextrose 0 ml 02/13/19 22:03 02/17/19 07:02 D50w (25gm) Syringe IV 50 ml PRN PRN Administration Hypoglycemia Ferrous Sulfate 308 mg 02/20/19 12:00 Ferrous Sulfate PO BID THANIA Heparin Sodium (Porcine) 5,000 unit 02/13/19 22:00 02/20/19 10:37 Heparin SUB-Q 5,000 unit Q12HR THANIA Administration Piperacillin Sod/Tazobactam Sod 3.375 gm in 50 mls @ 100 mls/hr 02/15/19 15:00 02/20/19 06:16 Zosyn/Ns 3.375gm/50ml IV 100 mls/hr Q8HR THANIA Administration Protocol Sodium Chloride 1,000 mls @ 125 mls/hr 02/16/19 14:00 02/20/19 00:36 Nacl 0.45% 1000 Ml IV 75 mls/hr DIRECT THANIA Administration Magnesium Sulfate 3 gm/ Sodium 106 mls @ 35.333 mls/hr 02/20/19 13:00 Chloride IV 02/20/19 15:59 ONCE ONE Sodium Chloride 500 mls @ 0 mls/hr 02/20/19 12:06 Nacl 0.9% 500 Ml IV 02/20/19 23:59 ONCE NR As Directed Insulin Human Isoph/Insulin Regular 10 unit 02/17/19 19:59 02/20/19 10:55 Humulin 70/30 SUB-Q 10 unit BIDDIAB THANIA Administration Insulin Human Lispro 0 unit 02/17/19 12:30 02/20/19 06:24 Humalog SUB-Q 3 unit Q6HR THANIA Administration Protocol Levothyroxine Sodium 25 mcg 02/15/19 10:00 02/20/19 10:25 Synthroid PO 25 mcg QAM THANIA Administration Lisinopril 5 mg 02/20/19 12:00 Zestril PO QDAY [facility] Metoprolol Tartrate 12.5 mg 02/17/19 22:00 02/20/19 10:30 Lopressor PO 12.5 mg BID THANIA Administration Ondansetron HCl 4 mg 02/13/19 22:07 Zofran IV Q8H PRN Nausea And Vomiting Prochlorperazine Maleate 10 mg 02/14/19 18:00 02/20/19 06:17 Compazine PO 10 mg Q6HR THANIA Administration Simple Syrup 15 ml 02/14/19 12:59 Simple Syrup FEEDTUBE PRN PRN Hypoglycemia Simple Syrup 30 ml 02/15/19 11:27 Simple Syrup FEEDTUBE PRN PRN Hypoglycemia Sodium Bicarbonate 325 mg 02/14/19 12:59 Sodium Bicarbonate FEEDTUBE PRN PRN For Clogged Feeding Tube Nutrition/Malnutrition Assess - Dietary Evaluation Nutrition/Malnutrition Findings: Nutrition Notes Start: 02/14/19 10:17 Freq: Status: Active Protocol: Document 02/16/19 11:09 TW (Rec: 02/16/19 11:18 TW [id number]) Co-Sign 02/16/19 11:09 LP Nutrition Notes Initial or Follow up Reassessment Current Diagnosis Diabetes Other Pertinent Diagnosis DKA, rhabdomolysis, bilaterial pneumonia, hypothermia, elevated troponin Current Diet NPO Labs/Tests Na 157 BG 196 Pertinent Medications reviewed Height 5 ft 9 in Weight 49.895 kg [place] Body Weight (kg) 72.72 BMI 16.2 Weight Status Underweight Subjective/Other Information F/U for TF tolerance. Pt TF running at goal (60mL/hr). Pt reports tolerating TF. Noted mild clavicular, orbital, and temporal wasting. Noted hair falling onto pillow indicating pro/kcal deficiency. Percent of energy/protein needs met: >75% Burn Absent Trauma Absent Minimum of two criteria Yes Body Fat Depletion Mild depletion (non-severe) Muscle Mass Mild Depletion (non-severe) Protein-Calorie Malnutrition Non-Severe #2 Nutrition Diagnosis Malnutrition Etiology inadequate oral intake As Evidenced by Signs and Symptoms BMI of 16.2, temporal, orbital , and clavicle wasting, easily pluckable hair #1 Nutrition Diagnosis Inadequate oral intake Diagnosis Progress(for reassessment Continues documentation) Is patient on ventilator? No Is Patient Ambulatory and/or Out of Bed No REE-([facility]-confined to bed) 1611.588 Kcal/Kg value to use for calculation 42 Approximate Energy Requirements Using 2096 kcal/Kg Calculation Used for Recommendations Kcal/kg Additional Notes Pro 60-75g (1.2-1.5g/kg) Fluid 1 mL/kcal Nutrition Intervention Change Diet Order: TF Nutrition Support: Glucerna 1.2 at 65 mL/hr Water flush of 100mL q4h Kcal 1,872 Protein (gm) 94 Fluid (mL) 1,256 Goal #1 Continue to meet at least 75% of kcal and pro needs via TF Anticipated Discharge Needs: Unable to determine at this time Follow-Up By: 02/23/19 Additional Comments F/U: TF tolerance
[2019-02-20] MEDS ORDERED: MAGNESIUM SULFATE 3 GM in NACL 0.9% 100 ML IV ONE (13:00)
--- NOTE | 2019-02-20 13:05 | Progress Note ---
Assessment and Plan - Patient Problems (1) Acute kidney failure with tubular necrosis Current Visit: Yes Status: Acute Plan to address problem: Renal function has improved back to baseline with adequate hydration and treatment of DKA. Will continue to monitor closely. (2) Hypernatremia Current Visit: Yes Status: Acute Plan to address problem: Improved with current measures . Currently on D5 1/2 NS at 75 cc/hr. Will continue to monitor. (3) Anemia Current Visit: Yes Status: Acute Plan to address problem: Plan for transfusion of PRBC to maintain HgB>7.0 (4) Pneumonia Current Visit: Yes Status: Acute Plan to address problem: Continue current antibiotic regimen. (5) Rhabdomyolysis Current Visit: Yes Status: Acute Plan to address problem: CPK levels continue to trend down. Subjective Date of service: 02/20/19 Principal diagnosis: DKA Interval history: No acute complaints this am, labs noted and drop in H/H with symptoms concerning for GI bleed. Plan for transfusion today per primary attending. Renal function is stable and hypernatremia has resolved at this time. Objective - Vital Signs Vital signs: Vital Signs - 12hr 02/20/19 02/20/19 02/20/19 05:08 10:30 12:04 Temperature 98.3 F Pulse Rate 86 71 Respiratory 24 20 Rate Blood Pressure 121/81 121/81 112/81 O2 Sat by Pulse 94 Oximetry - General Appearance General appearance: appears stated age, frail EENT: ATNC, PERRL Neck: no JVD, no thyromegaly Respiratory: Present: Clear to Ascultation Cardiology: regular, S1S2 Gastrointestinal: normal Integumentary: warm and dry Neurologic: no focal deficit Musculoskeletal: other (-edema ) Psychiatric: cooperative - Lab 02/20/19 06:17 02/20/19 06:17 Most recent lab results Calcium 9.0 mg/dL (8.4-10.2) 02/20/19 06:17 Phosphorus 1.60 mg/dL (2.5-4.5) L D 02/16/19 06:00 Magnesium 1.20 mg/dL (1.7-2.3) L 02/20/19 06:17 - Allied health notes Allied health notes reviewed: nursing Medications & Allergies - Medications Allergies/Adverse Reactions: Allergies butorphanol tartrate [From Stadol] Adverse Reaction (Verified 02/14/19 11:42) Unknown codeine Adverse Reaction (Verified 02/14/19 11:42) Unknown diazepam [From Valium] Adverse Reaction (Verified 02/14/19 11:42) Unknown iodine Adverse Reaction (Verified 02/14/19 11:42) Unknown phenobarbital Adverse Reaction (Verified 02/14/19 11:42) Unknown phenytoin sodium [From Dilantin] Adverse Reaction (Verified 02/14/19 11:42) Unknown phenytoin sodium extended [From Dilantin] Adverse Reaction (Verified 02/14/19 11:42) Unknown prednisone Adverse Reaction (Verified 02/14/19 11:42) Unknown sulfasalazine [From Azulfidine] Adverse Reaction (Verified 02/14/19 11:42) Unknown Home Medications: Home Medications Medication Instructions Recorded Confirmed Last Taken Type Insulin Glargine,Hum.rec.anlog 44 unit SQ QHS 02/14/19 02/14/19 Unknown History [Lantus Solostar] Levothyroxine [Synthroid] 25 mcg PO QAM 02/14/19 02/14/19 Unknown History Prochlorperazine [Compazine] 10 mg PO Q6HR 02/14/19 02/14/19 Unknown History Active Medications: Generic Name Dose Route Start Last Admin Trade Name Freq PRN Reason Stop Dose Admin Acetaminophen 650 mg 02/13/19 22:08 02/17/19 22:05 Tylenol PO 650 mg Q4H PRN Administration Fever >101 Lipase/Protease/Amylase 1 each 02/14/19 12:59 Pancreaze 10,500 Unit FEEDTUBE PRN PRN For Clogged Feeding Tube Aspirin 81 mg 02/20/19 12:00 Baby Aspirin PO QDAY THANIA Dextrose 0 ml 02/13/19 22:03 02/17/19 07:02 D50w (25gm) Syringe IV 50 ml PRN PRN Administration Hypoglycemia Ferrous Sulfate 308 mg 02/20/19 12:00 Ferrous Sulfate PO BID THANIA Heparin Sodium (Porcine) 5,000 unit 02/13/19 22:00 02/20/19 10:37 Heparin SUB-Q 5,000 unit Q12HR THANIA Administration Piperacillin Sod/Tazobactam Sod 3.375 gm in 50 mls @ 100 mls/hr 02/15/19 15:00 02/20/19 06:16 Zosyn/Ns 3.375gm/50ml IV 100 mls/hr Q8HR THANIA Administration Protocol Sodium Chloride 1,000 mls @ 125 mls/hr 02/16/19 14:00 02/20/19 00:36 Nacl 0.45% 1000 Ml IV 75 mls/hr DIRECT THANIA Administration Magnesium Sulfate 3 gm/ Sodium 106 mls @ 35.333 mls/hr 02/20/19 13:00 Chloride IV 02/20/19 15:59 ONCE ONE Sodium Chloride 500 mls @ 0 mls/hr 02/20/19 12:06 Nacl 0.9% 500 Ml IV 02/20/19 23:59 ONCE NR As Directed Insulin Human Isoph/Insulin Regular 15 unit 02/20/19 12:30 Humulin 70/30 SUB-Q BIDDIAB THANIA Insulin Human Lispro 0 unit 02/17/19 12:30 02/20/19 06:24 Humalog SUB-Q 3 unit Q6HR THANIA Administration Protocol Levothyroxine Sodium 25 mcg 02/15/19 10:00 02/20/19 10:25 Synthroid PO 25 mcg QAM THANIA Administration Lisinopril 5 mg 02/20/19 12:00 Zestril PO QDAY THANIA Metoprolol Tartrate 12.5 mg 02/17/19 22:00 02/20/19 10:30 Lopressor PO 12.5 mg BID THANIA Administration Ondansetron HCl 4 mg 02/13/19 22:07 Zofran IV Q8H PRN Nausea And Vomiting Prochlorperazine Maleate 10 mg 02/14/19 18:00 02/20/19 06:17 Compazine PO 10 mg Q6HR THANIA Administration Simple Syrup 15 ml 02/14/19 12:59 Simple Syrup FEEDTUBE PRN PRN Hypoglycemia Simple Syrup 30 ml 02/15/19 11:27 Simple Syrup FEEDTUBE PRN PRN Hypoglycemia Sodium Bicarbonate 325 mg 02/14/19 12:59 Sodium Bicarbonate FEEDTUBE PRN PRN For Clogged Feeding Tube
[2019-02-20] MEDS: FERROUS SULFATE PO SCH ×2 (13:16→22:47)
[2019-02-20] MEDS: BABY ASPIRIN PO SCH (13:16)
[2019-02-20] MEDS: ZESTRIL PO SCH (13:18)
[2019-02-21] MEDS: HumaLOG SUB-Q SCH ×4 (00:07→17:43)
[2019-02-21] MEDS: COMPAZINE PO SCH ×3 (00:13→11:28)
[2019-02-21] MEDS: ZOSYN/NS 3.375GM/50ML 3.375 GM/50 ML BAG IV SCH ×2 (06:50→14:46)
[2019-02-21 06:52] VITALS: BP 140/97
[2019-02-21 08:53] LABS: Hematocrit 29.4 % (35.5-45.6); Hemoglobin 9.5 gm/dl (11.8-15.2); Mean Corpuscular HGB Conc 32 % (32-34); Mean Corpuscular Volume 81 fl (84-94); Platelet Count 281 K/mm3 (140-440); Red Blood Count 3.64 M/mm3 (3.65-5.03)
[2019-02-21] MEDS: NACL 0.45% 1000 ML 1,000 ML IV SCH (08:53)
--- NOTE | 2019-02-21 08:59 | Progress Note ---
Assessment and Plan - Patient Problems (1) Acute kidney failure with tubular necrosis Current Visit: Yes Status: Acute Plan to address problem: Renal function has improved back to baseline with adequate hydration and treatment of DKA. Will continue to monitor closely. From renal standpoint patient is stable for DC. (2) Hypernatremia Current Visit: Yes Status: Acute Plan to address problem: Improved with current measures. Will continue to monitor. (3) Anemia Current Visit: Yes Status: Acute Plan to address problem: s/p transfusion of PRBC to maintain HgB>7.0 (4) Pneumonia Current Visit: Yes Status: Acute Plan to address problem: Continue current antibiotic regimen. (5) Rhabdomyolysis Current Visit: Yes Status: Acute Plan to address problem: CPK levels continue to trend down. Subjective Date of service: 02/21/19 Principal diagnosis: DKA Interval history: No acute issues overnight, received PRBC transfusions, and is pending repeat CBC to ensure appropriate response. Objective - Vital Signs Vital signs: Vital Signs - 12hr 02/20/19 02/20/19 02/20/19 21:19 22:00 23:00 Temperature 98.5 F Pulse Rate Respiratory 17 20 Rate Respiratory 17 Rate [Medial Chest] Blood Pressure 133/95 O2 Sat by Pulse 94 97 Oximetry 02/21/19 02/21/19 05:49 08:05 Temperature 98.0 F Pulse Rate 72 Respiratory 22 Rate Respiratory Rate [Medial Chest] Blood Pressure 140/97 O2 Sat by Pulse 97 95 Oximetry - General Appearance General appearance: appears stated age, chronically ill, frail EENT: ATNC, PERRL Neck: no JVD, no thyromegaly Respiratory: Present: Clear to Ascultation Cardiology: regular, S1S2 Gastrointestinal: normal, normoactive bowel sounds Integumentary: no rash Neurologic: no focal deficit Musculoskeletal: other (-edema ) Psychiatric: cooperative - Lab 02/20/19 06:17 02/20/19 06:17 Most recent lab results Calcium 9.0 mg/dL (8.4-10.2) 02/20/19 06:17 Phosphorus 1.60 mg/dL (2.5-4.5) L D 02/16/19 06:00 Magnesium 1.20 mg/dL (1.7-2.3) L 02/20/19 06:17 - Allied health notes Allied health notes reviewed: nursing Medications & Allergies - Medications Allergies/Adverse Reactions: Allergies butorphanol tartrate [From Stadol] Adverse Reaction (Verified 02/14/19 11:42) Unknown codeine Adverse Reaction (Verified 02/14/19 11:42) Unknown diazepam [From Valium] Adverse Reaction (Verified 02/14/19 11:42) Unknown iodine Adverse Reaction (Verified 02/14/19 11:42) Unknown phenobarbital Adverse Reaction (Verified 02/14/19 11:42) Unknown phenytoin sodium [From Dilantin] Adverse Reaction (Verified 02/14/19 11:42) Unknown phenytoin sodium extended [From Dilantin] Adverse Reaction (Verified 02/14/19 11:42) Unknown prednisone Adverse Reaction (Verified 02/14/19 11:42) Unknown sulfasalazine [From Azulfidine] Adverse Reaction (Verified 02/14/19 11:42) Unknown Home Medications: Home Medications Medication Instructions Recorded Confirmed Last Taken Type Insulin Glargine,Hum.rec.anlog 44 unit SQ QHS 02/14/19 02/14/19 Unknown History [Lantus Solostar] Levothyroxine [Synthroid] 25 mcg PO QAM 02/14/19 02/14/19 Unknown History Prochlorperazine [Compazine] 10 mg PO Q6HR 02/14/19 02/14/19 Unknown History Active Medications: Generic Name Dose Route Start Last Admin Trade Name Freq PRN Reason Stop Dose Admin Acetaminophen 650 mg 02/13/19 22:08 02/17/19 22:05 Tylenol PO 650 mg Q4H PRN Administration Fever >101 Lipase/Protease/Amylase 1 each 02/14/19 12:59 Pancrelatoya Rodriguez 10,500 Unit FEEDTUBE PRN PRN For Clogged Feeding Tube Aspirin 81 mg 02/20/19 12:00 02/20/19 13:16 Baby Aspirin PO 81 mg QDAY THANIA Administration Dextrose 0 ml 02/13/19 22:03 02/17/19 07:02 D50w (25gm) Syringe IV 50 ml PRN PRN Administration Hypoglycemia Ferrous Sulfate 308 mg 02/20/19 12:00 02/20/19 22:47 Ferrous Sulfate PO 308 mg BID THANIA Administration Heparin Sodium (Porcine) 5,000 unit 02/13/19 22:00 02/20/19 22:47 Heparin SUB-Q 5,000 unit Q12HR THANIA Administration Piperacillin Sod/Tazobactam Sod 3.375 gm in 50 mls @ 100 mls/hr 02/15/19 15:00 02/21/19 06:50 Zosyn/Ns 3.375gm/50ml IV 100 mls/hr Q8HR THANIA Administration Protocol Sodium Chloride 1,000 mls @ 125 mls/hr 02/16/19 14:00 02/20/19 00:36 Nacl 0.45% 1000 Ml IV 75 mls/hr DIRECT THANIA Administration Insulin Human Isoph/Insulin Regular 15 unit 02/20/19 12:30 02/20/19 20:18 Humulin 70/30 SUB-Q Not Given BIDDIAB THANIA Insulin Human Lispro 0 unit 02/17/19 12:30 02/21/19 06:51 Humalog SUB-Q 6 unit Q6HR THANIA Administration Protocol Levothyroxine Sodium 25 mcg 02/15/19 10:00 02/20/19 10:25 Synthroid PO 25 mcg QAM THANIA Administration Lisinopril 5 mg 02/20/19 12:00 02/20/19 13:18 Zestril PO 5 mg QDAY THANIA Administration Metoprolol Tartrate 12.5 mg 02/17/19 22:00 02/20/19 23:02 Lopressor PO 12.5 mg BID THANIA Administration Ondansetron HCl 4 mg 02/13/19 22:07 Zofran IV Q8H PRN Nausea And Vomiting Prochlorperazine Maleate 10 mg 02/14/19 18:00 02/21/19 06:51 Compazine PO 10 mg Q6HR THANIA Administration Simple Syrup 15 ml 02/14/19 12:59 Simple Syrup FEEDTUBE PRN PRN Hypoglycemia Simple Syrup 30 ml 02/15/19 11:27 Simple Syrup FEEDTUBE PRN PRN Hypoglycemia Sodium Bicarbonate 325 mg 02/14/19 12:59 Sodium Bicarbonate FEEDTUBE PRN PRN For Clogged Feeding Tube
[2019-02-21 09:10] LABS: BUN/Creatinine Ratio 19; Blood Urea Nitrogen 13 mg/dL (9-20); Calcium 9.9 mg/dL (8.4-10.2); Hemolysis Index 7
--- NOTE | 2019-02-21 11:11 | Progress Note ---
Assessment and Plan Pt continues deny chest pain, troponin elevation pattern appears c/w NSTEMI type II. [facility] records reviewed - pt is followed by [facility], Dr. Kathryn Shah. 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 Pt also noted to have chronic anemia. Will cont with conservative cardiac management in setting of metastatic CA. Currently stable cardiac status. Cont present cardiac regimen. Nothing further to add from cardiac perspective at this time. Will sign off. Recommend follow up in our office with Dr. Arabella Cornejo within 1-2 weeks of hospital discharge ([phone]). The patient has been seen in conjunction with Dr. Lopez who agrees with the a ssessment and plan of care. - Patient Problems (1) NSTEMI (non-ST elevated myocardial infarction) Current Visit: Yes Status: Acute (2) Paroxysmal atrial fibrillation Current Visit: Yes Status: Chronic (3) Abnormal ECG Current Visit: Yes Status: Resolved (4) Sepsis Current Visit: Yes Status: Suspected (5) Hypotension Current Visit: Yes Status: Resolved (6) DKA (diabetic ketoacidoses) Current Visit: Yes Status: Resolved (7) Acute kidney injury Current Visit: Yes Status: Acute (8) Rhabdomyolysis Current Visit: Yes Status: Acute (9) Altered mental status Current Visit: Yes Status: Resolved (10) Anemia Current Visit: Yes Status: Acute (11) Cardiomyopathy Current Visit: Yes Status: Chronic (12) CAD (coronary artery disease) Current Visit: Yes Status: Chronic (13) Metastatic squamous cell carcinoma to tongue Current Visit: Yes Status: Chronic Subjective Date of service: 02/21/19 Principal diagnosis: DKA Interval history: pt resting in bed, no current complaints. in SR on telemetry. Objective Last Vital Signs Temp 98.0 F 02/21/19 05:49 Pulse 72 02/21/19 05:49 Resp 22 02/21/19 05:49 BP 140/97 02/21/19 05:49 Pulse Ox 95 02/21/19 08:05 - Physical Examination General: No Apparent Distress HEENT: Positive: PERRL Neck: Positive: neck supple Cardiac: Positive: Reg Rate and Rhythm, S1/S2 Lungs: Positive: Decreased Breath Sounds Neuro: Positive: Grossly Intact Abdomen: Positive: Soft Extremities: Present: normal - Labs and Meds CBC 02/21/19 Range/Units 08:37 WBC 5.7 (4.5-11.0) K/mm3 RBC 3.64 L (3.65-5.03) M/mm3 Hgb 9.5 L (11.8-15.2) gm/dl Hct 29.4 L D (35.5-45.6) % Plt Count 281 (140-440) K/mm3 Comprehensive Metabolic Panel 02/21/19 Range/Units 08:37 Sodium 139 (137-145) mmol/L Potassium 4.7 D (3.6-5.0) mmol/L Chloride 101.7 (98-107) mmol/L Carbon Dioxide 21 L (22-30) mmol/L BUN 13 (9-20) mg/dL Creatinine 0.7 L (0.8-1.5) mg/dL Glucose 427 H (75-100) mg/dL Calcium 9.9 (8.4-10.2) mg/dL - Imaging and Cardiology EKG: report reviewed, image reviewed Echo: report reviewed (02/15/2019: EF 20-25%, mild LVH, global hypokinesis, mild MR, mild TR) - Allied health notes Allied health notes reviewed: nursing
[2019-02-21] MEDS: HEPARIN SUB-Q SCH (11:27)
[2019-02-21] MEDS: FERROUS SULFATE PO SCH (11:27)
[2019-02-21] MEDS: BABY ASPIRIN PO SCH (11:27)
[2019-02-21 11:28] LABS: Iron 21 ug/dL (49-181); Total Iron Binding Capacity 200 mcg/dL (250-450)
[2019-02-21] MEDS: SYNTHROID PO SCH (11:28)
[2019-02-21] MEDS: LOPRESSOR PO SCH (11:30)
[2019-02-21] MEDS: ZESTRIL PO SCH (11:31)
--- NOTE | 2019-02-21 13:22 | Discharge Summary ---
Providers - Providers Date of Admission: 02/13/19 21:58 Date of discharge: 02/21/19 Attending physician: NOMAN PURI 02/13/19 22:03 Consult to Dietitian/Nutrition [CONS] Routine Physician Instructions: Reason For Exam: DKA Reason for Consult: Nutrition Recommendations Reason for Consult: Diet education 02/14/19 05:50 Consult to Physician [CONS] Routine Comment: Genie HAJI notified @ 08:19- [facility] Consulting Provider: RAMON SIMPSON Physician Instructions: Reason For Exam: CHASE 02/14/19 06:00 Consult to Physician [CONS] Routine Comment: Zita Doyle notified @ 09:07- [facility] Consulting Provider: ANDRE OLSEN Physician Instructions: Reason For Exam: ELEVATED TROPONIN LEVEL AND HX OF CAD 02/14/19 12:59 Consult to Dietitian/Nutrition [CONS] Routine Physician Instructions: Assess nutrtn needs, initiate, modify, manage TF Reason For Exam: Reason for Consult: Write/Manage Tube Feeding Reason for Consult: Write/Manage Tube Feeding 02/15/19 11:27 Consult to Dietitian/Nutrition [CONS] Routine Physician Instructions: Assess nutrtn needs, initiate, modify, manage TF Reason For Exam: Reason for Consult: Write/Manage Tube Feeding Reason for Consult: Write/Manage Tube Feeding 02/16/19 16:31 Physical Therapy Evaluation and Treat [CONS] Routine Comment: Reason For Exam: Difficulty ambulating,Generalized weakness Primary care physician: [facility] Hospitalization Reason for admission: Altered level of conscousness Condition: Stable Pertinent studies: CT head CXR ECHO Hospital course: 53-year-old male patient was admitted with altered mental status. patient was in an extended stay hotel and per management the patient was found in the bathroom on the floor surrounded by feces and vomitus. The patient is a poor historian and denies complaints.Patient has history of esophageal cancer treated with surgery.Initial workup is consistant with DKA,pneumonia possible aspiration pneumonia/,Afib with RVR,sepsis and septic Shock. Patient also had afib with RVR,admitted to ICU managed appropriately. Evaluated and managed by pulmonary,nephrology and cardiology in consultation. Symptoms improved,today pt is comfortable,no new complaints,vitals stable, Physical exam is unremarkable. Cleared by all the consultants and patient is stable at discharge Discharge Diagnosis: --DKA : resolved --Possible septic shock;S/P Levophed, resolved --Possible aspiration Pneumonia: treated appropriately --H/O Metastatic squamous cell tongue cancer; supportive care --New onset A. fib with RVR;now rate conrolled not a candidate for chronic anticoagulation Secondary to severe anemia, cardiology evaluated --Severe anemia; hemoglobin 6.9-7.1-7.3-6.9 history of tongue cancer,s/p 1 unit PRBC transfusion --Type 2 diabetes mellitus; moderate control Accu-Chek sliding SSC, Novolin 70/30 dose changed --Hypokalemia;received KCl --Hypomagnesemia; s/p magnesium sulfate IV --Leukocytosis; secondary to sepsis, resolved --Acute kidney injury; secondary to ATN; resolved --Elevated troponins/non-ST elevation MO /type2 --Chronic systolc CHF, EF: 20-25%,cont current management --History of hypothyroidism; continue Synthroid --Rhabdomyolysis; gentle hydration, resolved --Status post PEG; PEG feeds, PEG care --Severe malnutrition; nutrition consult, supportive care --DVT prophylaxis; Lovenox Cleared by all consultants,Stable at discharge Disposition: [id number] HOME UNDER HOME [facility] Time spent for discharge: 35 min Core Measure Documentation - Palliative Care Palliative Care/ Comfort Measures: Not Applicable - Core Measures Any of the following diagnoses?: heart failure - Heart Failure Discharge Requirements YUDITH/ARB for LVSD if EF <40%: Yes Beta gwyn at discharge: Yes Exam - Constitutional Vitals: Temp Pulse Resp BP Pulse Ox 98.1 F 72 18 140/97 95 02/21/19 11:11 02/21/19 11:31 02/21/19 11:11 02/21/19 11:31 02/21/19 11:11 General appearance: Present: no acute distress, cachectic, disheveled - EENT Eyes: Present: PERRL, EOM intact - Neck Neck: Present: supple, normal ROM - Respiratory Respiratory effort: normal Respiratory: bilateral: diminished, rhonchi, negative: rales, wheezing - Cardiovascular Rhythm: regular Heart Sounds: Present: S1 & S2 - Extremities Extremities: no ischemia, No edema - Abdominal General gastrointestinal: Present: soft, non-tender, non-distended, normal bowel sounds, other (PEG in place) - Integumentary Integumentary: Present: clear, warm - Musculoskeletal Musculoskeletal: strength equal bilaterally, generalized weakness - Psychiatric Psychiatric: appropriate mood/affect, cooperative - Neurologic Neurologic: moves all extremities Plan Activity: advance as tolerated, fall precautions Diet: other (Tube feeds per protocol) Additional Instructions: F/U with [facility] per schedule Follow up with: [facility] MD DAMARIS [Primary Care Provider] - 3-5 Days [place] STEELE MD [Staff Physician] - 7 Days RAMON SIMPSON DO [Staff Physician] - 7 Days Prescriptions: Aspirin [Aspirin BABY CHEW TAB] 81 mg PO QDAY #30 tab.chew Ferrous Sulfate [Ferrous Sulfate Oral Liq 300 Mg/5 Ml] 300 mg PO BID 30 Days ml Insulin Glargine,Hum.rec.anlog [Lantus Solostar] 44 unit SQ QHS #1 insuln.pen Metoprolol [Lopressor TAB] 12.5 mg PO BID #60 tablet Lisinopril [Zestril TAB] 5 mg PO QDAY #30 tablet
== END 2019-02-21 18:44 | disposition home health service (06) | DRG 871 ==
LOC: ED 18:21 → CC1 21:58 → 3A 02-15 22:24
PROVIDERS: ADMIT Internal Medicine; ATTEND Internal Medicine
PROC: 06HM33Z Insertion of Infusion Device into Right Femoral Vein, Percutaneous Approach (ICD-10-PCS; principal; 2019-02-13)
PROC: 05JY3ZZ Inspection of Upper Vein, Percutaneous Approach (ICD-10-PCS; 2019-02-13)
PROC: B543ZZA Ultrasonography of Right Jugular Veins, Guidance (ICD-10-PCS; 2019-02-13)
PROC: 4A033R1 Measurement of Arterial Saturation, Peripheral, Percutaneous Approach (ICD-10-PCS; 2019-02-15)
PROC: 5A09357 Assistance with Respiratory Ventilation, Less than 24 Consecutive Hours, Continuous Positive Airway Pressure (ICD-10-PCS; 2019-02-15)
PROC: 30233N1 Transfusion of Nonautologous Red Blood Cells into Peripheral Vein, Percutaneous Approach (ICD-10-PCS; 2019-02-20)
DX: A41.9 Sepsis, unspecified organism (principal); N17.0 Acute kidney failure with tubular necrosis; R65.21 Severe sepsis with septic shock; E11.10 Type 2 diabetes mellitus with ketoacidosis without coma; E43 Unspecified severe protein-calorie malnutrition; J18.9 Pneumonia, unspecified organism; I21.A1 Myocardial infarction type 2; M62.82 Rhabdomyolysis; I42.9 Cardiomyopathy, unspecified; E87.0 Hyperosmolality and hypernatremia; C79.89 Secondary malignant neoplasm of other specified sites; Z68.1 Body mass index [BMI] 19.9 or less, adult; I48.0 Paroxysmal atrial fibrillation; R94.31 Abnormal electrocardiogram [ECG] [EKG]; D64.9 Anemia, unspecified; E87.6 Hypokalemia; E83.42 Hypomagnesemia; I25.10 Atherosclerotic heart disease of native coronary artery without angina pectoris; F17.200 Nicotine dependence, unspecified, uncomplicated; I11.0 Hypertensive heart disease with heart failure; I50.9 Heart failure, unspecified; E83.39 Other disorders of phosphorus metabolism; R68.0 Hypothermia, not associated with low environmental temperature; Z88.5 Allergy status to narcotic agent; Z79.4 Long term (current) use of insulin; Z88.2 Allergy status to sulfonamides; Z79.899 Other long term (current) drug therapy; Z93.1 Gastrostomy status; I25.2 Old myocardial infarction; Z95.5 Presence of coronary angioplasty implant and graft; Z91.041 Radiographic dye allergy status
CPT/HCPCS: 36415; 36600; 70450; 71045; 80048; 80053; 80061; 81001; 82550; 82553; 82728; 82803; 82805; 82962; 83036; 83550; 83690; 83735; 84100; 84439; 84443; 84484; 85007; 85025; 85027; 85610; 85730; 86850; 86900; 86901; 86920; 87040; 87086; 93005; 93010; 93306; 94660; 94760; 96361; 96365; G0378; A6250; J1644; J1815; J2543; J3475; J7030; J7040; P9016; Q0164